=== PATIENT | female | born 1980 | race Caucasian/White ===

== ENCOUNTER 2016-10-15 10:08 | Emergency (ER) | payer MEDICAID ==
[2016-10-15 10:21] VITALS: BP 137/107
[2016-10-15] MEDS ORDERED: Sodium Chloride 0.9% 1,000 ML IV ONE (10:45)
[2016-10-15] MEDS ORDERED: Sodium Chloride 0.9% 10 ML Syringe FLUSH PRN (10:45)
[2016-10-15] MEDS ORDERED: HYDROmorphone 1 MG/ML Syringe IVPUSH ONE ×2 (10:45→12:15)
[2016-10-15] MEDS ORDERED: Ondansetron 8 MG in Sodium Chloride 0.9% 100 ML IV ONE (10:45)
--- NOTE | 2016-10-15 10:55 | EDM.PDOC ---
ED HPI GI/ABDOMINAL - General Chief Complaint: Abdominal Pain Stated Complaint: ABDOMINAL PAIN Time Seen by Provider: 10/15/16 10:33 Source of Information: Reports: Patient History Limitations: Reports: No limitations - History of Present Illness INITIAL COMMENTS - FREE TEXT/NARRATIVE: Patient comes in with pain 8/10 to the left lower quadrant of her abdomen. She states she has had nausea for the last few days, vomiting started yesterday, the pain over the last 24 hours. She states the pain is a sharp pain that sometimes radiates down to the pelvic area. She denies chest pain, SOB, decreased LOC. No fever but does endorse chills. She denies diarrhea. Patient states she has had her gall bladder and appendix removed. She has also had extensive history of kidney stones, with surgical removal of stones on the right side in July. History of multiple UTI's. 2 Para 2, denies history of ectopic . At home test 2 days ago was negative. She is 1 week late according to her usual menstrual cycle. Not actively using control. Also endorses history of ovarian cysts. Symptom Onset Date: 10/12/16 Timing/Duration: Reports: Getting worse, Gradual onset Location: suprapubic Quality: Reports: stabbing Severity: moderate Associated Symptoms (-Female): Reports: nausea/vomiting - Related Data Allergies/ADRs: Allergies Allergy/AdvReac Type Severity Reaction Status Date / Time codeine Allergy Itching Verified 10/15/16 10:24 morphine Allergy Itching Verified 10/15/16 10:24 Sulfa (Sulfonamide Allergy Rash Verified 10/15/16 10:24 Antibiotics) vancomycin Allergy Anaphylactic Verified 10/15/16 10:24 Shock Home Meds: Home Meds Multivitamin [One Daily] 1 each PO DAILY 12/25/14 [History] Aspirin [Halfprin] 81 mg PO BRK 04/10/16 [History] Doxycycline [Vibramycin] 100 mg PO Q12HR 04/10/16 [History] Ibuprofen [Advil] 200 - 600 mg PO Q6H PRN 04/10/16 [History] Midodrine 5 mg PO TID 04/10/16 [History] Nitrofurantoin Macrocrystal [Macrodantin] 100 mg PO BID 04/10/16 [History] SUMAtriptan Succinate [Imitrex] 100 mg PO ASDIRECTED PRN 04/10/16 [History] Sucralfate [Carafate] 1 gm PO QID PRN 04/10/16 [History] Lubiprostone [Amitiza] 24 mcg PO BID 10/15/16 [History] Nortriptyline HCl [Pamelor] 50 mg PO BEDTIME 10/15/16 [History] Ondansetron [Zofran ODT] 4 mg PO Q6H 10/15/16 [History] Propranolol [Inderal LA] 80 mg PO DAILY 10/15/16 [History] Past Medical History - Past Health History Medical/Surgical History: Denies Medical/Surgical History HEENT History: Reports: Head Other Cardiovascular History: sinus tachycardia Genitourinary History: Reports: Renal calculus 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 States her boyfriend witnessed them. She denies following up with Neurology after the seizure. Other Endocrine/Metabolic History: borderline abn.thyroid lab Dermatologic History: Reports: Other (see below) Other Dermatologic History: acne - Infectious Disease History Infectious Disease History: Reports: Chicken pox, MRSA Other Infectious Disease History: Recent history of MRSA on her face. - Past Surgical History HEENT Surgical History: Reports: Adenoidectomy, Tonsillectomy Female Surgical History: Reports: Kidney stone extraction Social & Family History - Family History Other Family History: mother has kidney problems Oncologic: Reports: Bladder Other Oncologic Family History: grandma - Tobacco Use Smoking Status *Q: Unknown Ever Smoked Years of Tobacco use: 5 Packs/Tins Daily: 0 - Alcohol Use Days Per Week of Alcohol Use: 0 - Recreational Drug Use Recreational Drug Use: No ED ROS GENERAL - Review of Systems Review Of Systems: See Below Constitutional: Reports: chills HEENT: Reports: No symptoms Respiratory: Reports: no symptoms Cardiovascular: Reports: No symptoms Endocrine: Reports: no symptoms GI/Abdominal: Reports: Abdominal pain, Nausea, Vomiting : Reports: no symptoms Musculoskeletal: Reports: no symptoms Skin: Reports: no symptoms Neurological: Reports: no symptoms Psychiatric: Reports: No symptoms Hematologic/Lymphatic: Reports: no symptoms Immunologic: Reports: no symptoms ED EXAM, GI/ABD - Physical Exam Exam: See Below Exam Limited By: No limitations General Appearance: alert, WD/WN, moderate distress Eyes: bilateral: EOMI Ears: normal TMs Nose: normal inspection Throat/Mouth: Normal inspection, Normal oropharynx Head: atraumatic, normocephalic Neck: normal inspection, supple, non-tender, full range of motion Respiratory/Chest: no respiratory distress, lungs clear, normal breath sounds, no accessory muscle use, chest non-tender Cardiovascular: normal peripheral pulses, no edema, no gallop, no murmur, tachycardia GI/Abdominal: normal bowel sounds, soft, no organomegaly, no distention, no abnormal bruit, no mass, tenderness, guarding Back Exam: normal inspection, full range of motion Extremities: normal inspection, normal range of motion, non-tender, no pedal edema, normal capillary refill Neurological: alert, oriented, CN II-XII intact, normal cognition, normal gait, normal reflexes, no motor/sensory deficits Psychiatric: normal affect, normal mood Skin Exam: Warm, Dry, Intact, Normal color, No rash Lymphatic: no adenopathy Course - Vital Signs Last Recorded V/S: Last Vital Signs Temp 35.8 C 10/15/16 10:20 Pulse 107 H 10/15/16 10:20 Resp 20 10/15/16 10:20 BP 137/107 H 10/15/16 10:20 Pulse Ox 98 10/15/16 10:20 - Orders/Labs/Meds Orders: Active Orders 24 hr Category Date Time Status Abdomen Pelvis w Cont [CT] Stat Exams 10/15/16 12:00 Ordered Sodium Chloride 0.9% [Saline Flush] Med 10/15/16 10:45 Active 10 ml FLUSH ASDIRECTED PRN Saline Lock Insert [OM.PC] Routine Oth 10/15/16 10:45 Ordered Medication Orders Sodium Chloride (Saline Flush) 10 ml FLUSH ASDIRECTED PRN PRN Reason: Keep Vein Open Labs: Laboratory Tests 10/15/16 10/15/16 10/15/16 Range/Units 10:57 10:57 11:16 WBC 6.5 (4.0-10.0) x10^3/uL RBC 4.43 (4.00-5.50) x10^6/uL Hgb 13.4 (12.0-16.0) g/dL Hct 39.2 (33.0-47.0) % MCV 88.5 (78.0-93.0) fL MCH 30.2 (26.0-32.0) pg MCHC 34.2 (32.0-36.0) g/dL RDW Coeff of Nydia 13.2 (10.0-15.0) % Plt Count 357 (130-400) x10^3/uL Neut % (Auto) 67.9 (50.0-80.0) % Lymph % (Auto) 25.9 (25.0-50.0) % [place] % (Auto) 5.1 (2.0-11.0) % Eos % (Auto) 0.9 (0.0-4.0) % Baso % (Auto) 0.2 (0.2-1.2) % Sodium 139 (136-145) mmol/L Potassium 3.9 (3.5-5.1) mmol/L Chloride 105 (98-107) mmol/L Carbon Dioxide 26 (21-32) mmol/L BUN 6 L (7-18) mg/dL Creatinine 0.8 (0.55-1.02) mg/dL Est Cr Clr Drug Dosing TNP Estimated GFR (MDRD) > 60 Glucose 111 H (74-106) mg/dL Calcium 8.8 (8.5-10.1) mg/dL Corrected Calcium 8.88 (8.5-10.1) mg/dL Total Bilirubin 0.3 (0.2-1.0) mg/dL AST 15 (15-37) U/L ALT 24 (14-59) U/L Alkaline Phosphatase 76 (46-116) U/L C-Reactive Protein < 0.2 (<=0.9) mg/dL Total Protein 7.5 (6.4-8.2) g/dL Albumin 3.9 (3.4-5.0) g/dL Globulin 3.6 Albumin/Globulin Ratio 1.08 Urine Color (YELLOW) Urine Appearance (CLEAR) Urine pH (5.0-8.0) Ur Specific [place] Urine Protein (NEGATIVE) mg/dL Urine Glucose (UA) (NEGATIVE) mg/dL Urine Ketones (NEGATIVE) mg/dL Urine Occult Blood (NEGATIVE) Urine Nitrite (NEGATIVE) Urine Bilirubin (NEGATIVE) Urine Urobilinogen (0.2) EU/dL Ur Leukocyte Esterase (NEGATIVE) Urine RBC (NOT SEEN) /HPF Urine WBC (NOT SEEN) /HPF Ur Squamous Epith Cells (NEGATIVE) /HPF Urine Bacteria (NEGATIVE) /HPF Urine Mucus (NEGATIVE) /LPF Urine HCG, Qual Negative (NEGATIVE) 10/15/16 Range/Units 11:16 WBC (4.0-10.0) x10^3/uL RBC (4.00-5.50) x10^6/uL Hgb (12.0-16.0) g/dL Hct (33.0-47.0) % MCV (78.0-93.0) fL MCH (26.0-32.0) pg MCHC (32.0-36.0) g/dL RDW Coeff of Nydia (10.0-15.0) % Plt Count (130-400) x10^3/uL Neut % (Auto) (50.0-80.0) % Lymph % (Auto) (25.0-50.0) % [place] % (Auto) (2.0-11.0) % Eos % (Auto) (0.0-4.0) % Baso % (Auto) (0.2-1.2) % Sodium (136-145) mmol/L Potassium (3.5-5.1) mmol/L Chloride (98-107) mmol/L Carbon Dioxide (21-32) mmol/L BUN (7-18) mg/dL Creatinine (0.55-1.02) mg/dL Est Cr Clr Drug Dosing Estimated GFR (MDRD) Glucose (74-106) mg/dL Calcium (8.5-10.1) mg/dL Corrected Calcium (8.5-10.1) mg/dL Total Bilirubin (0.2-1.0) mg/dL AST (15-37) U/L ALT (14-59) U/L Alkaline Phosphatase (46-116) U/L C-Reactive Protein (<=0.9) mg/dL Total Protein (6.4-8.2) g/dL Albumin (3.4-5.0) g/dL Globulin Albumin/Globulin Ratio Urine Color Yellow (YELLOW) Urine Appearance Clear (CLEAR) Urine pH 5.5 (5.0-8.0) Ur Specific [place] 1.010 Urine Protein Negative (NEGATIVE) mg/dL Urine Glucose (UA) Negative (NEGATIVE) mg/dL Urine Ketones Negative (NEGATIVE) mg/dL Urine Occult Blood Negative (NEGATIVE) Urine Nitrite Negative (NEGATIVE) Urine Bilirubin Negative (NEGATIVE) Urine Urobilinogen 0.2 (0.2) EU/dL Ur Leukocyte Esterase Negative (NEGATIVE) Urine RBC 0-5 (NOT SEEN) /HPF Urine WBC 0-5 (NOT SEEN) /HPF Ur Squamous Epith Cells Rare (NEGATIVE) /HPF Urine Bacteria Few H (NEGATIVE) /HPF Urine Mucus Few H (NEGATIVE) /LPF Urine HCG, Qual (NEGATIVE) Meds: Medications Generic Name Dose Route Start Last Admin Trade Name Freq PRN Reason Stop Dose Admin Sodium Chloride 10 ml 10/15/16 10:45 Saline Flush FLUSH ASDIRECTED PRN Keep Vein Open Discontinued Medications Generic Name Dose Route Start Last Admin Trade Name Freq PRN Reason Stop Dose Admin Hydromorphone HCl 1 mg 10/15/16 10:45 10/15/16 11:16 Dilaudid IVPUSH 10/15/16 10:46 1 mg ONETIME ONE Administration Hydromorphone HCl 1 mg 10/15/16 12:15 10/15/16 12:38 Dilaudid IVPUSH 10/15/16 12:16 1 mg ONETIME ONE Administration Ondansetron HCl 8 mg/ Sodium 104 mls @ 400 mls/hr 10/15/16 10:45 10/15/16 11: 14 Chloride IV 10/15/16 11:00 400 mls/hr ONETIME ONE Administration Sodium Chloride 1,000 mls @ 999 mls/hr 10/15/16 10:45 10/15/16 11:14 Normal Saline IV 10/15/16 11:45 999 mls/hr .BOLUS ONE Administration Sodium Chloride 100 mls @ 3 mls/sec 10/15/16 12:35 10/15/16 12:36 Normal Saline IV 10/15/16 12:36 3 mls/sec ONETIME ONE Administration Iopamidol 100 ml 10/15/16 12:35 10/15/16 12:36 Isovue-300 (61%) IVPUSH 10/15/16 12:36 100 ml ONETIME ONE Administration - Radiology Interpretation Free Text/Narrative:: Abdominal CT negative Labs are also negative for acute processes. Departure - Departure Time of Disposition: 13:37 Disposition: Home, Self-Care 01 Condition: good Clinical Impression: Abdominal pain, Vomiting Instructions: Nausea and Vomiting, Adult, [id number], Pain Medicine Instructions, [id number] Forms: ED Department Discharge Additional Instructions: Your labs and CT were negative today. The radiologist did see a small left sided ovarian cyst that he did not think was large enough to be causing this much discomfort. Bowels were normal, no diverticulitis, no stones seen test was negative I would recommend a follow up appointment with your CREDIT UNION TELLER to have an ultrasound done to rule out other gynecologic causes. I believe [facility] has the ultrasound on SaturdayOctober 16 Make sure to stay hydrated as best you can with water or gatorade/powerade. Please call with any questions or concerns in the meantime - Problem List & Annotations (1) Abdominal pain SNOMED Code(s): 64996963 Code(s): R10.9 - UNSPECIFIED ABDOMINAL PAIN Status: Acute Priority: Low Current Visit: Yes Qualifiers: Abdominal location: left lower quadrant Qualified Code(s): R10.32 - Left lower quadrant pain (2) Vomiting SNOMED Code(s): 790633998 Code(s): R11.10 - VOMITING, UNSPECIFIED Status: Acute Current Visit: Yes Qualifiers: Vomiting type: unspecified Vomiting Intractability: non-intractable Nausea presence: with nausea Qualified Code(s): R11.2 - Nausea with vomiting, unspecified - Problem List Review Problem List Initiated/Reviewed/Updated: Yes - My Orders Last 24 Hours: My Active Orders 10/15/16 10:45 Sodium Chloride 0.9% [Saline Flush] 10 ml FLUSH ASDIRECTED PRN Saline Lock Insert [OM.PC] Routine 10/15/16 12:00 Abdomen Pelvis w Cont [CT] Stat - Assessment/Plan Last 24 Hours: My Active Orders 10/15/16 10:45 Sodium Chloride 0.9% [Saline Flush] 10 ml FLUSH ASDIRECTED PRN Saline Lock Insert [OM.PC] Routine 10/15/16 12:00 Abdomen Pelvis w Cont [CT] Stat Assessment:: left sided abdominal pain nausea/vomiting Plan: our labs and CT were negative today. The radiologist did see a small left sided ovarian cyst that he did not think was large enough to be causing this much discomfort. Bowels were normal, no diverticulitis, no stones seen test was negative I would recommend a follow up appointment with your CREDIT UNION TELLER to have an ultrasound done to rule out other gynecologic causes. I believe [facility] has the ultrasound on SaturdayOctober 16 Make sure to stay hydrated as best you can with water or gatorade/powerade. Please call with any questions or concerns in the meantime
[2016-10-15 11:22] LABS: CHLORIDE,CL 105 mmol/L (98-107); SODIUM,NA 139 mmol/L (136-145)
[2016-10-15] MEDS ORDERED: Sodium Chloride 0.9% 100 ML IV ONE (12:35)
[2016-10-15] MEDS ORDERED: Iopamidol 612 MG/ML 100 ML Bottle IVPUSH ONE (12:35)
== END 2016-10-15 13:53 | disposition home or self-care (01) ==
LOC: VM.ED 10:08
DX: R10.32 Left lower quadrant pain (principal); R11.2 Nausea with vomiting, unspecified; G43.909 Migraine, unspecified, not intractable, without status migrainosus; Z88.5 Allergy status to narcotic agent; Z88.2 Allergy status to sulfonamides; Z88.6 Allergy status to analgesic agent; Z88.8 Allergy status to other drugs, medicaments and biological substances; Z79.899 Other long term (current) drug therapy
CPT/HCPCS: 36415; 74177; 80053; 81001; 81025; 85025; 86140; 96361; 96374; 96375; 96376; 99284; J1170; J2405; J7030; J7050; Q9967

== ENCOUNTER 2016-11-08 20:51 | Emergency (ER) | payer MEDICAID ==
[2016-11-08] MEDS ORDERED: Ketorolac 60 MG/2 ML SDV IM ONE (21:22)
[2016-11-08] MEDS ORDERED: Promethazine 25 MG/ML SDV IM ONE (21:22)
--- NOTE | 2016-11-08 21:28 | EDM.PDOC ---
ED HPI HEADACHE COMPLAINT - General Chief Complaint: Headache Stated Complaint: Migraine Time Seen by Provider: 11/08/16 21:13 Source of Information: Reports: Patient History Limitations: Reports: No limitations - History of Present Illness INITIAL COMMENTS - FREE TEXT/NARRATIVE: 36-year-old white female with complaints of headache times one day that came on suddenly yesterday morning patient states she took 2 doses of Imitrex yesterday and has had no relief classifies it as a 7/10 sharp stabbing to the right side of her fourhead she denies this as her worst headache of her life states she has an occasionally one to 2 times a month and has had worse headaches than this patient has had CTs MRIs all negative last head CT was roughly one year ago Patient states this does not typically fed her migraine pattern because mostly it is from front to back this is located mostly over the forehead area patient states has had nausea all day vomiting x1 a couple of hours has been having some by mouth fluids and food has been evaluated by neurology in the past with normal findings patient denies any loss of vision numbness or tingling dental pain sore throat or neck pain Location: Reports: frontal, temporal, right Severity: Reports: moderate. Denies: worst headache ever Context: Denies: dietary trigger, recent drugs/ETOH, change in medications Associated Symptoms: Reports: denies other symptoms. Denies: hyperacusis, photophobia, confusion, dizziness, vision changes - Related Data Allergies/ADRs: Allergies Allergy/AdvReac Type Severity Reaction Status Date / Time codeine Allergy Itching Verified 11/08/16 21:14 morphine Allergy Itching Verified 11/08/16 21:14 Sulfa (Sulfonamide Allergy Rash Verified 11/08/16 21:14 Antibiotics) vancomycin Allergy Anaphylactic Verified 11/08/16 21:14 Shock Home Meds: Home Meds Multivitamin [One Daily] 1 each PO DAILY 12/25/14 [History] Aspirin [Halfprin] 325 mg PO BRK 04/10/16 [History] Doxycycline [Vibramycin] 100 mg PO Q12HR 04/10/16 [History] Ibuprofen [Advil] 200 - 600 mg PO Q6H PRN 04/10/16 [History] Midodrine 7.5 mg PO TID 04/10/16 [History] SUMAtriptan Succinate [Imitrex] 100 mg PO ASDIRECTED PRN 04/10/16 [History] Lubiprostone [Amitiza] 24 mcg PO BID 10/15/16 [History] Nortriptyline HCl [Pamelor] 50 mg PO BEDTIME 10/15/16 [History] Ondansetron [Zofran ODT] 4 mg PO Q6H 10/15/16 [History] Propranolol [Inderal LA] 80 mg PO DAILY 10/15/16 [History] Past Medical History - Past Health History Medical/Surgical History: Denies Medical/Surgical History HEENT History: Reports: Head Other Cardiovascular History: sinus tachycardia Genitourinary History: Reports: Renal calculus 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 States her boyfriend witnessed them. She denies following up with Neurology after the seizure. Other Endocrine/Metabolic History: borderline abn.thyroid lab Dermatologic History: Reports: Other (see below) Other Dermatologic History: acne - Infectious Disease History Infectious Disease History: Reports: Chicken pox, MRSA Other Infectious Disease History: Recent history of MRSA on her face. - Past Surgical History HEENT Surgical History: Reports: Adenoidectomy, Tonsillectomy Female Surgical History: Reports: Kidney stone extraction Social & Family History - Family History Other Family History: mother has kidney problems Oncologic: Reports: Bladder Other Oncologic Family History: grandma - Tobacco Use Smoking Status *Q: Unknown Ever Smoked Years of Tobacco use: 5 Packs/Tins Daily: 0 - Alcohol Use Days Per Week of Alcohol Use: 0 - Recreational Drug Use Recreational Drug Use: No ED ROS GENERAL - Review of Systems Review Of Systems: See Below Constitutional: Reports: no symptoms. Denies: fever, chills, malaise HEENT: Reports: No symptoms Respiratory: Reports: No Symptoms Cardiovascular: Reports: No symptoms Endocrine: Reports: no symptoms GI/Abdominal: Reports: No symptoms Musculoskeletal: Reports: no symptoms Skin: Reports: no symptoms Neurological: Reports: Headache. Denies: Confusion, Dizziness, Numbness, Paresthesia, Syncope, Tingling, Trouble Speaking, Gait Disturbance Psychiatric: Reports: No symptoms Hematologic/Lymphatic: Reports: no symptoms Immunologic: Reports: no symptoms - Physical Exam Exam: See Below Exam Limited By: No limitations General Appearance: alert, WD/WN, no apparent distress Eye Exam: bilateral eye: EOMI, PERRL Ears: normal external exam, normal canal, hearing grossly normal, normal TMs Nose: normal inspection, normal mucosa, no blood Throat/Mouth: Normal inspection, Normal lips, Normal teeth, Normal gums, Normal oropharynx, Normal voice, No airway compromise, Other (Negative tenderness palpation of her dental area no signs of any abscess) Head Exam: atraumatic, normocephalic. No: scalp tenderness, facial abrasions, facial swelling, sinus tenderness Neck: normal inspection, supple, non-tender, full range of motion Respiratory/Chest: no respiratory distress, lungs clear, normal breath sounds, no accessory muscle use, chest non-tender Cardiovascular: normal peripheral pulses, regular rate, rhythm, no edema, no gallop, no JVD GI/Abdominal: normal bowel sounds, non tender, no organomegaly Neuro Exam (Abbreviated): alert, oriented, CN II-XII intact, normal cognition, normal gait, normal reflexes (Patient is alert oriented normal speech follows all normal Romberg finger to nose PATRICIA), no motor/sensory deficits Extremities: normal inspection, normal range of motion, non-tender Psychiatric: normal affect, normal mood Skin Exam: Warm, Dry, Intact, Normal color, No rash Course - Vital Signs Text/Narrative:: Toradol 60 mg IM Phenergan 12.5 mg IM and reassess patient afterwards patient was noted to have mild hypertension 142/100 rechecked pt bp normal SHOEMAKER has improved feels better neg nausea patient states she is going to [place] tomorrow to try to followup with her neurologist Last Recorded V/S: Last Vital Signs Temp 37.2 C 11/08/16 21:21 Pulse 88 11/08/16 21:45 Resp 18 11/08/16 21:21 BP 123/87 11/08/16 21:45 Pulse Ox 98 11/08/16 21:45 - Orders/Labs/Meds Meds: Medications Discontinued Medications Generic Name Dose Route Start Last Admin Trade Name Freq PRN Reason Stop Dose Admin Ketorolac Tromethamine 60 mg 11/08/16 21:22 11/08/16 21:40 Toradol IM 11/08/16 21:23 60 mg ONETIME ONE Administration Promethazine HCl 12.5 mg 11/08/16 21:22 11/08/16 21:41 Phenergan IM 11/08/16 21:23 12.5 mg ONETIME ONE Administration Departure - Departure Time of Disposition: 21:40 Disposition: Home, Self-Care 01 Condition: good Clinical Impression: Subarachnoid hemorrhage Migraine Qualifiers: Migraine type: unspecified Status migrainosus presence: without status migrainosus Intractability: not intractable Qualified Code(s): G43.909 - Migraine, unspecified, not intractable, without status migrainosus Clinical Impression: (Ruled Out): Meningitis, Encephalitis Referrals: Maik Gonzales NP [Primary Care Provider] - Forms: ED Department Discharge Additional Instructions: follow up with your primary provider in the next 24-48 hrs return to ER if anything changes or gets worse loss vision changes in vision persistent vomiting or worsening headache
[2016-11-09 02:22] VITALS: BP 123/87
== END 2016-11-08 22:08 | disposition home or self-care (01) ==
LOC: VM.ED 20:51
DX: I60.9 Nontraumatic subarachnoid hemorrhage, unspecified (principal); G43.909 Migraine, unspecified, not intractable, without status migrainosus; Z88.6 Allergy status to analgesic agent; Z88.5 Allergy status to narcotic agent; Z88.2 Allergy status to sulfonamides; Z79.899 Other long term (current) drug therapy
CPT/HCPCS: 96372; 99283; J1885; J2550

== ENCOUNTER 2016-12-23 04:34 | Emergency (ER) | payer MEDICAID ==
--- NOTE | 2016-12-23 04:58 | EDM.PDOC ---
ED HPI GENERAL MEDICAL PROBLEM - General Chief Complaint: General Stated Complaint: ?SEIZURES Time Seen by Provider: 12/23/16 04:46 Source of Information: Reports: Patient, Family, RN, RN notes reviewed History Limitations: Reports: No limitations - History of Present Illness INITIAL COMMENTS - FREE TEXT/NARRATIVE: Patient is brought to the ED at [facility] for a possible seizure. Patient' s boyfriend states around 3am, patient was just lying in bed and started shaking and had trouble speaking. No falls or head trauma/injury. No previous history of seizures. Patient does smell of ETOH. Patient does not take any seizure medications. No current diagnosis of seizures. Patient's boyfriend states the patient has trouble speaking. Onset: sudden Onset Date: 12/23/16 Onset Time: 03:00 Duration: Recurring - Related Data Allergies Allergy/AdvReac Type Severity Reaction Status Date / Time acetaminophen [From Percocet] Allergy Itching Verified 12/23/16 05:08 adhesive Allergy Rash Verified 12/23/16 05:08 clindamycin Allergy Itching Verified 12/23/16 05:08 codeine Allergy Itching Verified 12/23/16 04:40 levofloxacin [From Levaquin] Allergy Rash Verified 12/23/16 05:08 morphine Allergy Itching Verified 12/23/16 04:40 oxycodone [From Percocet] Allergy Itching Verified 12/23/16 05:08 Sulfa (Sulfonamide Allergy Rash Verified 12/23/16 04:40 Antibiotics) sulfamethoxazole Allergy Rash Verified 12/23/16 05:09 [From Septra] trimethoprim [From Septra] Allergy Rash Verified 12/23/16 05:09 vancomycin Allergy Redness Verified 12/23/16 05:08 Home Meds: Home Meds Multivitamin [One Daily] 1 each PO DAILY 12/25/14 [History] Aspirin [Halfprin] 325 mg PO BRK 04/10/16 [History] Ibuprofen [Advil] 200 - 600 mg PO ASDIRECTED PRN 04/10/16 [History] Midodrine 7.5 mg PO TID 04/10/16 [History] SUMAtriptan Succinate [Imitrex] 100 mg PO ASDIRECTED PRN 04/10/16 [History] Lubiprostone [Amitiza] 24 mcg PO BID 10/15/16 [History] Nortriptyline HCl [Pamelor] 50 mg PO ASDIRECTED 10/15/16 [History] Ondansetron [Zofran ODT] 4 mg PO Q6H PRN 10/15/16 [History] Propranolol [Inderal LA] 80 mg PO ASDIRECTED 10/15/16 [History] Naproxen [Naprosyn] 1 tab PO BID 12/23/16 [History] Past Medical History - Past Health History Medical/Surgical History: Denies Medical/Surgical History HEENT History: Reports: Head Other Cardiovascular History: sinus tachycardia Genitourinary History: Reports: Renal calculus 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 States her boyfriend witnessed them. She denies following up with Neurology after the seizure. Other Endocrine/Metabolic History: borderline abn.thyroid lab Dermatologic History: Reports: Other (see below) Other Dermatologic History: acne - Infectious Disease History Infectious Disease History: Reports: Chicken pox, MRSA Other Infectious Disease History: Recent history of MRSA on her face. - Past Surgical History HEENT Surgical History: Reports: Adenoidectomy, Tonsillectomy Female Surgical History: Reports: Kidney stone extraction Social & Family History - Family History Other Family History: mother has kidney problems Oncologic: Reports: Bladder Other Oncologic Family History: grandma - Tobacco Use Smoking Status *Q: Unknown Ever Smoked Years of Tobacco use: 5 Packs/Tins Daily: 0 - Caffeine Use Caffeine Use: Reports: Coffee, Soda - Alcohol Use Days Per Week of Alcohol Use: 0 - Recreational Drug Use Recreational Drug Use: No ED ROS GENERAL - Review of Systems Review Of Systems: See Below Constitutional: Denies: fever, chills, weakness HEENT: Reports: No symptoms Respiratory: Denies: Shortness of Breath, Cough Cardiovascular: Denies: Chest pain, Palpitations GI/Abdominal: Denies: Abdominal pain, Nausea, Vomiting Skin: Reports: no symptoms Neurological: Reports: Seizure, Tremors. Denies: Dizziness, Headache, Numbness , Paresthesia, Tingling ED EXAM, GENERAL - Physical Exam Exam: See Below Exam Limited By: No limitations General Appearance: alert, no apparent distress Eye Exam: bilateral eye: EOMI, normal inspection, PERRL Ears: normal external exam, normal canal, hearing grossly normal, normal TMs Ear Exam: bilateral ear: TM normal Nose: normal inspection, normal mucosa, no blood Throat/Mouth: Normal inspection, Normal oropharynx, No airway compromise Head: atraumatic, normocephalic Neck: supple Respiratory/Chest: no respiratory distress, lungs clear, normal breath sounds Cardiovascular: regular rate, rhythm GI/Abdominal: normal bowel sounds, soft, non tender Extremities: normal inspection Neurological: alert, slow to respond Skin Exam: Warm, Dry, Intact, Normal color, No rash Course - Vital Signs Last Recorded V/S: Last Vital Signs Temp 37.4 C 12/23/16 04:38 Pulse 122 H 12/23/16 04:38 Resp 20 12/23/16 04:38 BP 140/76 12/23/16 04:38 Pulse Ox 100 12/23/16 04:38 - Orders/Labs/Meds Orders: Active Orders 24 hr Category Date Time Status Head wo Cont [CT] Stat Exams 12/23/16 04:46 Taken Labs: Laboratory Tests 12/23/16 12/23/16 12/23/16 Range/Units 04:59 04:59 05:07 WBC 6.4 (4.0-10.0) x10^3/uL RBC 4.18 (4.00-5.50) x10^6/uL Hgb 12.5 (12.0-16.0) g/dL Hct 36.3 (33.0-47.0) % MCV 86.8 (78.0-93.0) fL MCH 29.9 (26.0-32.0) pg MCHC 34.4 (32.0-36.0) g/dL RDW Coeff of Nydia 13.2 (10.0-15.0) % Plt Count 312 (130-400) x10^3/uL Neut % (Auto) 48.7 L (50.0-80.0) % Lymph % (Auto) 39.5 (25.0-50.0) % [place] % (Auto) 8.3 (2.0-11.0) % Eos % (Auto) 3.0 (0.0-4.0) % Baso % (Auto) 0.5 (0.2-1.2) % Sodium (136-145) mmol/L Potassium (3.5-5.1) mmol/L Chloride (98-107) mmol/L Carbon Dioxide (21-32) mmol/L BUN (7-18) mg/dL Creatinine (0.55-1.02) mg/dL Est Cr Clr Drug Dosing Estimated GFR (MDRD) Glucose (74-106) mg/dL Calcium (8.5-10.1) mg/dL Urine Color Yellow (YELLOW) Urine Appearance Clear (CLEAR) Urine pH 6.0 (5.0-8.0) Ur Specific [place] 1.010 Urine Protein Negative (NEGATIVE) mg/dL Urine Glucose (UA) Negative (NEGATIVE) mg/dL Urine Ketones Negative (NEGATIVE) mg/dL Urine Occult Blood Trace-intact H (NEGATIVE) Urine Nitrite Negative (NEGATIVE) Urine Bilirubin Negative (NEGATIVE) Urine Urobilinogen 0.2 (0.2) EU/dL Ur Leukocyte Esterase Negative (NEGATIVE) Urine RBC 0-5 (NOT SEEN) /HPF Urine WBC 0-5 (NOT SEEN) /HPF Ur Squamous Epith Cells Few H (NEGATIVE) /HPF Urine Bacteria Not seen (NEGATIVE) /HPF Urine Mucus Not seen (NEGATIVE) /LPF Urine Opiates Screen Negative (NEGATIVE) Ur Buprenorphine Scrn Negative (NEGATIVE) Ur Oxycodone Screen Negative (NEGATIVE) Urine Methadone Screen Negative (NEGATIVE) Ur Barbiturates Screen Negative (NEGATIVE) Ur Tricyclics Screen Negative (NEGATIVE) Ur Amphetamine Screen Negative (NEGATIVE) U Methamphetamines Scrn Negative (NEGATIVE) Urine MDMA Screen Negative (NEGATIVE) U Benzodiazepines Scrn Negative (NEGATIVE) U Cocaine Metab Screen Negative (NEGATIVE) U Marijuana (THC) Screen Negative (NEGATIVE) Ethyl Alcohol (0-3) mg/dL 12/23/16 Range/Units 05:07 WBC (4.0-10.0) x10^3/uL RBC (4.00-5.50) x10^6/uL Hgb (12.0-16.0) g/dL Hct (33.0-47.0) % MCV (78.0-93.0) fL MCH (26.0-32.0) pg MCHC (32.0-36.0) g/dL RDW Coeff of Nydia (10.0-15.0) % Plt Count (130-400) x10^3/uL Neut % (Auto) (50.0-80.0) % Lymph % (Auto) (25.0-50.0) % [place] % (Auto) (2.0-11.0) % Eos % (Auto) (0.0-4.0) % Baso % (Auto) (0.2-1.2) % Sodium 143 (136-145) mmol/L Potassium 3.7 (3.5-5.1) mmol/L Chloride 109 H (98-107) mmol/L Carbon Dioxide 24 (21-32) mmol/L BUN 5 L (7-18) mg/dL Creatinine 0.7 (0.55-1.02) mg/dL Est Cr Clr Drug Dosing TNP Estimated GFR (MDRD) > 60 Glucose 97 (74-106) mg/dL Calcium 8.3 L (8.5-10.1) mg/dL Urine Color (YELLOW) Urine Appearance (CLEAR) Urine pH (5.0-8.0) Ur Specific [place] Urine Protein (NEGATIVE) mg/dL Urine Glucose (UA) (NEGATIVE) mg/dL Urine Ketones (NEGATIVE) mg/dL Urine Occult Blood (NEGATIVE) Urine Nitrite (NEGATIVE) Urine Bilirubin (NEGATIVE) Urine Urobilinogen (0.2) EU/dL Ur Leukocyte Esterase (NEGATIVE) Urine RBC (NOT SEEN) /HPF Urine WBC (NOT SEEN) /HPF Ur Squamous Epith Cells (NEGATIVE) /HPF Urine Bacteria (NEGATIVE) /HPF Urine Mucus (NEGATIVE) /LPF Urine Opiates Screen (NEGATIVE) Ur Buprenorphine Scrn (NEGATIVE) Ur Oxycodone Screen (NEGATIVE) Urine Methadone Screen (NEGATIVE) Ur Barbiturates Screen (NEGATIVE) Ur Tricyclics Screen (NEGATIVE) Ur Amphetamine Screen (NEGATIVE) U Methamphetamines Scrn (NEGATIVE) Urine MDMA Screen (NEGATIVE) U Benzodiazepines Scrn (NEGATIVE) U Cocaine Metab Screen (NEGATIVE) U Marijuana (THC) Screen (NEGATIVE) Ethyl Alcohol 118 H (0-3) mg/dL - Radiology Interpretation Free Text/Narrative:: Normal Head CT CT Results Date: 12/23/16 CT Results Time: 05:47 Departure - Departure Time of Disposition: 06:09 Disposition: Home, Self-Care 01 Condition: good Clinical Impression: Dehydration, No history of seizure disorder Instructions: Rehydration, Adult Referrals: Maik Gonzales NP [Primary Care Provider] - Forms: ED Department Discharge Additional Instructions: 1. Stay well hydrated and rest 2. Continue all medications without any changes 3. Return to ED as symptoms warrant 4. All testing today was normal - Problem List Review Problem List Initiated/Reviewed/Updated: Yes - My Orders Last 24 Hours: My Active Orders 12/23/16 04:46 Head wo Cont [CT] Stat - Assessment/Plan Last 24 Hours: My Active Orders 12/23/16 04:46 Head wo Cont [CT] Stat
[2016-12-23 05:29] LABS: CHLORIDE,CL 109 mmol/L (98-107); SODIUM,NA 143 mmol/L (136-145)
[2016-12-23 06:11] VITALS: BP 115/43
== END 2016-12-23 06:21 | disposition home or self-care (01) ==
LOC: VM.ED 04:34
DX: E86.0 Dehydration (principal); G43.909 Migraine, unspecified, not intractable, without status migrainosus; Z90.49 Acquired absence of other specified parts of digestive tract; Z88.8 Allergy status to other drugs, medicaments and biological substances; Z88.2 Allergy status to sulfonamides; Z88.5 Allergy status to narcotic agent
CPT/HCPCS: 36415; 70450; 80048; 80305; 81001; 85025; 99284; G0480

== ENCOUNTER 2017-03-28 22:35 | Emergency (ER) | payer MEDICAID ==
[2017-03-28 22:49] VITALS: BP 134/83
--- NOTE | 2017-03-28 23:07 | EDM.PDOC ---
ED HPI GENERAL MEDICAL PROBLEM - General Chief Complaint: Upper Extremity Injury/Pain Stated Complaint: Right Wrist Injury; Migraine Time Seen by Provider: 03/28/17 22:38 Source of Information: Reports: Patient, Family, RN, RN Notes Reviewed History Limitations: Reports: No Limitations - History of Present Illness INITIAL COMMENTS - FREE TEXT/NARRATIVE: Patient presents to the ED at [facility] with a couple of different complaints. Patient states she has had typical migraine headache for most of the day. Patient states she did take 2 Imitrex, which did not help, so patient decided to take a hot bath. Patient states she was exiting the bath tub, "I must have fallen or past out, because I can not move my right wrist." Patient states the last thing she remembers is draining the water from the tub and then waking up on the floor. She denies any blunt head injury, but does have some pain behind her left ear. She complains of severe right wrist pain and not being able to move her right wrist. No previous right wrist injury or trauma. No previous right wrist surgeries. Patient states most of the pain is on the dorsal side of the wrist. She states she is not able to bend her wrist or house mover helper her fingers. Patient does, however, deny any LOC. No other complaints. Onset: Today Onset Date: 03/28/17 Onset Time: 21:30 Location: Reports: Upper Extremity, Right Quality: Reports: Sharp, Throbbing Severity: Severe Improves with: Reports: Rest Worsens with: Reports: Movement Context: Reports: Trauma Associated Symptoms: Reports: Headaches Treatments SILVER STEWARD: Reports: Other (see below) (None) - Related Data Allergies Allergy/AdvReac Type Severity Reaction Status Date / Time acetaminophen [From Percocet] Allergy Itching Verified 03/28/17 22:51 adhesive Allergy Rash Verified 03/28/17 22:51 clindamycin Allergy Itching Verified 03/28/17 22:51 codeine Allergy Itching Verified 03/28/17 22:51 levofloxacin [From Levaquin] Allergy Rash Verified 03/28/17 22:51 morphine Allergy Itching Verified 03/28/17 22:51 oxycodone [From Percocet] Allergy Itching Verified 03/28/17 22:51 Sulfa (Sulfonamide Allergy Rash Verified 03/28/17 22:51 Antibiotics) sulfamethoxazole Allergy Rash Verified 03/28/17 22:51 [From ] trimethoprim [From ] Allergy Rash Verified 03/28/17 22:51 vancomycin Allergy Redness Verified 03/28/17 22:51 Home Meds: Home Meds Multivitamin [One Daily] 1 each PO DAILY 12/25/14 [History] Aspirin [Halfprin] 325 mg PO BRK 04/10/16 [History] Ibuprofen [Advil] 200 - 600 mg PO ASDIRECTED PRN 04/10/16 [History] Midodrine 7.5 mg PO TID 04/10/16 [History] SUMAtriptan Succinate [Imitrex] 100 mg PO ASDIRECTED PRN 04/10/16 [History] Lubiprostone [Amitiza] 24 mcg PO BID 10/15/16 [History] Nortriptyline HCl [Pamelor] 50 mg PO ASDIRECTED 10/15/16 [History] Ondansetron [Zofran ODT] 4 mg PO Q6H PRN 10/15/16 [History] Propranolol [Inderal LA] 80 mg PO ASDIRECTED 10/15/16 [History] Naproxen [Naprosyn] 1 tab PO BID 12/23/16 [History] Past Medical History - Past Health History Medical/Surgical History: Denies Medical/Surgical History HEENT History: Reports: Head Cardiovascular History: Reports: Other (See Below) Other Cardiovascular History: sinus tachycardia, POTS Gastrointestinal History: Reports: GERD, Inflammatory Bowel Disease Genitourinary History: Reports: Renal Calculus Other Genitourinary History: gross hematuria 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 States her boyfriend witnessed them. She denies following up with Neurology after the seizure. Other Endocrine/Metabolic History: borderline abn.thyroid lab Dermatologic History: Reports: Other (See Below) Other Dermatologic History: acne - Infectious Disease History Infectious Disease History: Reports: Chicken Pox, MRSA Other Infectious Disease History: Recent history of MRSA on her face. - Past Surgical History HEENT Surgical History: Reports: Adenoidectomy, Tonsillectomy Social & Family History - Family History Other Family History: mother has kidney problems Oncologic: Reports: Bladder Other Oncologic Family History: grandma - Tobacco Use Smoking Status *Q: Unknown Ever Smoked Years of Tobacco use: 5 Packs/Tins Daily: 0 - Caffeine Use Caffeine Use: Reports: Coffee, Soda - Alcohol Use Days Per Week of Alcohol Use: 0 - Recreational Drug Use Recreational Drug Use: No Review of Systems - Review of Systems Review Of Systems: See Below Constitutional: Denies: Chills, Fever, Weakness Respiratory: Denies: Shortness of Breath, Cough Cardiovascular: Denies: Chest Pain, Palpitations Musculoskeletal: Reports: Hand Pain, Joint Pain (Right wrist), Muscle Stiffness. Denies: Arm Pain Skin: Reports: No Symptoms Neurological: Reports: Headache. Denies: Numbness, Paresthesia, Tingling ED EXAM, GENERAL - Physical Exam Exam: See Below Exam Limited By: No Limitations General Appearance: Alert, No Apparent Distress Eye Exam: Bilateral Eye: EOMI, Normal Inspection, PERRL Head: Atraumatic, Normocephalic Neck: Supple, Full Range of Motion Respiratory/Chest: No Respiratory Distress, Lungs Clear, Normal Breath Sounds Cardiovascular: Regular Rate, Rhythm Extremities: Limited Range of Motion (Right wrist due to pain). No: Joint Swelling, Arm Pain Neurological: Alert, Oriented Skin Exam: Warm, Dry, Intact, Normal Color, No Rash Course - Vital Signs Last Recorded V/S: Last Vital Signs Temp 36.2 C 03/28/17 22:38 Pulse 88 03/28/17 22:38 Resp 14 03/28/17 22:38 BP 134/83 03/28/17 22:38 Pulse Ox 98 03/28/17 22:38 - Orders/Labs/Meds Orders: Active Orders 24 hr Category Date Time Status Wrist Comp Min 3V Rt [CR] Stat Exams 03/28/17 23:10 Taken Meds: Medications Discontinued Medications Generic Name Dose Route Start Last Admin Trade Name Freq PRN Reason Stop Dose Admin Chlorpromazine HCl 50 mg 03/28/17 23:10 03/28/17 23:22 Thorazine IM 03/28/17 23:11 50 mg ONETIME ONE Administration - Radiology Interpretation Free Text/Narrative:: Right Wrist: No acute findings - see scanned document in EMR Departure - Departure Time of Disposition: 23:52 Disposition: Home, Self-Care 01 Condition: Good Clinical Impression: Migraine Qualifiers: Migraine type: unspecified Status migrainosus presence: without status migrainosus Intractability: not intractable Qualified Code(s): G43.909 - Migraine, unspecified, not intractable, without status migrainosus Right wrist injury Qualifiers: Encounter type: initial encounter Qualified Code(s): S69.91XA - Unspecified injury of right wrist, hand and finger(s), initial encounter Wrist sprain Qualifiers: Encounter type: initial encounter Laterality: right Qualified Code(s): S63.501A - Unspecified sprain of right wrist, initial encounter - Discharge Information Instructions: Wrist Sprain, Migraine Headache Referrals: Elle Rajput MD [Primary Care Provider] - Forms: ED Department Discharge Additional Instructions: 1. Stay well hydrated and rest 2. Continue with Imitrex 3. Wear wrist splint for the next week 4. Alternate heat/ice to right wrist 5. Rest and elevate right wrist several time a day 6. See your Primary as symptoms warrant - Problem List Review Problem List Initiated/Reviewed/Updated: Yes - My Orders Last 24 Hours: My Active Orders 03/28/17 23:10 Wrist Comp Min 3V Rt [CR] Stat - Assessment/Plan Last 24 Hours: My Active Orders 03/28/17 23:10 Wrist Comp Min 3V Rt [CR] Stat
== END 2017-03-29 00:02 | disposition home or self-care (01) ==
LOC: VM.ED 22:35
DX: S63.501A Unspecified sprain of right wrist, initial encounter (principal); G43.909 Migraine, unspecified, not intractable, without status migrainosus; K21.9 Gastro-esophageal reflux disease without esophagitis; Z88.1 Allergy status to other antibiotic agents; Z88.5 Allergy status to narcotic agent; Z88.2 Allergy status to sulfonamides; Z88.8 Allergy status to other drugs, medicaments and biological substances; Z79.82 Long term (current) use of aspirin; Z87.442 Personal history of urinary calculi; Z86.14 Personal history of Methicillin resistant Staphylococcus aureus infection; Z90.89 Acquired absence of other organs; X58.XXXA Exposure to other specified factors, initial encounter
CPT/HCPCS: 73110; 96372; 99283; J3230

== ENCOUNTER 2017-04-29 15:50 | Emergency (ER) | payer MEDICAID ==
[2017-04-29 16:41] VITALS: BP 137/82
[2017-04-29] MEDS ORDERED: Sodium Chloride 0.9% 10 ML Syringe FLUSH PRN (16:43)
[2017-04-29] MEDS ORDERED: Sodium Chloride 0.9% 1,000 ML IV ONE (16:45)
[2017-04-29] MEDS ORDERED: Ketorolac 30 MG/ML SDV IVPUSH ONE ×2 (16:46→17:01)
[2017-04-29] MEDS ORDERED: Prochlorperazine 10 MG/2 ML SDV IV ONE (16:47)
[2017-04-29 17:43] LABS: CHLORIDE,CL 104 mmol/L (98-107); SODIUM,NA 135 mmol/L (136-145)
[2017-04-29] MEDS ORDERED: methylPREDNISolone Sodium Succinate 125 MG/2 ML SDV IV ONE (18:18)
[2017-04-29] MEDS ORDERED: Take Home: Acetaminophen/Codeine 300 MG/30 MG, 5 Tab Pack PO ONE (18:28)
[2017-04-29] MEDS ORDERED: Take Home: Naproxen 500 MG Tab, 4 Tab Pack PO ONE (18:28)
--- NOTE | 2017-04-30 08:18 | ER ---
Date of Service: 04/29/2017 SUBJECTIVE: Snehal presents to the emergency room with a constellation of symptoms. The patient states that she is experiencing left posterior chest wall pain as well as symptoms of migraine headache and scalp pain. The patient states that she has been experiencing these migraine symptoms since this morning. She states that it was similar to migraine that she had experienced in the past, but states that she was also experiencing some "black spots" in her vision. She states that she does have photophobia and denies any head trauma. She denies any numbness or tingling in her extremities or new difficulties with speech or ambulation. The patient had an episode of stroke-like symptoms in 08/2015 and did have some expressive aphasia and dysarthria associated with this. The patient was transferred to in [place] and then subsequently was seen at [facility] in [place] and was found to be experiencing likely an episode of migraine with aura or global amnesia. She states that she has not had any issues with any neurologic symptoms since that time, but states she does get a migraine approximately once a month. Again, she denies any fever or chills. No neck pain. She states that she was experiencing the pain in her head and feels as though it radiated down her neck and into her mid to upper portion of the left side of her back. She states the discomfort in her back is worse with movement and deep breathing. Initially, the patient states that she was not experiencing any cough. PAST MEDICAL HISTORY: Please see history of present illness: 1. POTS (positional orthostatic tachycardia syndrome). 2. Inflammatory IBS. 3. History of kidney stones. 4. GERD. 5. Tonsillectomy and adenoidectomy. 6. History of ovarian cyst. 7. Hypothyroidism. 8. Migraines. 9. Seizure disorder. She states that the last episode of seizure was approximately 2 years ago. She states that her boyfriend witnessed them, but denies following up with Neurology since that event. MEDICATIONS: 1. Phenergan. 2. Protonix. 3. Imitrex. 4. Inderal LA. 5. Zofran ODT. 6. Nortriptyline. 7. Multivitamin. 8. Midodrine. 9. Ibuprofen. ALLERGIES: Acetaminophen, adhesive, clindamycin, codeine, levofloxacin, morphine, oxycodone, sulfa, trimethoprim and vancomycin. REVIEW OF SYSTEMS: General: Denies fever or chills. HEENT: No sore throat, rhinorrhea, or congestion. Please see history of present illness. Respiratory: No shortness of breath. Cardiac: Denies any substernal chest pain. Chest: Please see history of present illness. GI: No nausea, vomiting or diarrhea. No melena, hematochezia or hematemesis. : Denies any dysuria. Musculoskeletal: No myalgias or arthralgias. Neurologic: Please see history of present illness. PHYSICAL EXAMINATION: General: This is a 36-year-old female patient, who is in no acute distress. Vital Signs: Temperature is 36.3, heart rate 100, blood pressure 137/82, respiratory rate 20, O2 saturations 96% on room air. Skin: Warm, pink, and dry. HEENT: Head is normocephalic, atraumatic. Eyes, PERRLA. Extraocular movements are intact. There is no funduscopic papilledema noted. Ears, TMs are clear. Mouth, oral mucosa is dry. No erythema or exudate noted in the hypopharynx. Neck: Supple without masses. There is no lymphadenopathy. Lungs: Clear to auscultation. Heart: Regular rate and rhythm. Abdomen: Soft, nontender. There is no hepatosplenomegaly or masses noted. Extremities: Without edema. Musculoskeletal: She does have point tenderness to the left posterior lateral back area. She states the discomfort is worse with flexion, extension and lateral bending. No obvious step-offs, deformity or crepitus noted. Again, lungs are otherwise clear. No rubs noted. Neurologic: She is alert and oriented. Answers all questions appropriately. Her speech is fluent. Her gait is within normal limits. LABORATORY DATA: WBC 8.2, hemoglobin is 12.7, platelets are 328. Coags: PT is 9.9, INR is 0.9. D-dimer is 0.23. Chemistry: Sodium is 135, potassium is 3.8, chloride is 104, bicarb is 30, BUN is 7, creatinine is 0.8. GFR is greater than 60, glucose is 87, calcium is 8.7, corrected calcium is 8.94. Total bilirubin is 0.3, AST is 13, ALT is 19, alkaline phosphatase is 66, troponin is less than 0.017. C-reactive protein is 0.4, total protein is 6.9, albumin is 3.7. Urinalysis is obtained. Specific gravity is 1.025. After 1 L of normal saline, pH was 6.0. Negative for protein and glucose. Did have a trace of ketones. Negative of occult blood, nitrites, bilirubin and leukocyte esterase. RADIOGRAPHIC DATA: CT scan of the patient's brain was obtained. It did not reveal any acute pathology. A 2-view chest x-ray was obtained. There was no evidence of any acute pathology. EMERGENCY ROOM COURSE: IV access was established. She was given a liter of normal saline IV. She was given Solu-Medrol 125 mg IV and Toradol 30 mg IV. She reported no significant improvement in her discomfort. She remained stable in my care in the emergency room. ASSESSMENT: 1. Migraine headache. 2. Pleuritic chest pain. PLAN: We will start her on prednisone 40 mg once daily for 5 days. Also, we will start her on naproxen 500 mg twice daily for discomfort. I did give her a short course of Tylenol No. 3 with instructions to take 1 to 2 every 4 to 6 hours as needed for pain. Follow up in the clinic in the next 7 to 10 days or sooner if she is developing worsening discomfort, shortness of breath or pain. All questions were answered. SEBASTIÁNK: 04/29/2017 19:01:04 MODL: 04/29/2017 23:56:48 /[id number]
== END 2017-04-29 18:45 | disposition home or self-care (01) ==
LOC: VM.ED 15:50
DX: G43.909 Migraine, unspecified, not intractable, without status migrainosus (principal); R07.81 Pleurodynia; K21.9 Gastro-esophageal reflux disease without esophagitis; E03.9 Hypothyroidism, unspecified; Z90.89 Acquired absence of other organs; Z88.5 Allergy status to narcotic agent; Z88.6 Allergy status to analgesic agent; Z88.2 Allergy status to sulfonamides; Z88.1 Allergy status to other antibiotic agents
CPT/HCPCS: 70450; 71020; 80053; 81001; 81025; 84484; 85025; 85379; 85610; 86140; 93005; 96361; 96374; 96375; 99285; A9270; J1885; J2930; J7030

== ENCOUNTER 2017-09-23 12:30 | Emergency (ER) | payer MEDICAID ==
--- NOTE | 2017-09-23 12:52 | EDM.PDOC ---
ED HPI GENERAL MEDICAL PROBLEM - General Chief Complaint: Syncope Stated Complaint: Passed out at school Time Seen by Provider: 09/23/17 12:37 Source of Information: Reports: Patient, RN, RN Notes Reviewed History Limitations: Reports: No Limitations - History of Present Illness INITIAL COMMENTS - FREE TEXT/NARRATIVE: C emergency room at [facility] after she had a syncopal episode while she was in class today. The patient did not have any prodromal symptoms. The patient states she was diagnosed with an upper respiratory infection last week and has not been drinking very well. The patient denies any head injury or trauma. The patient feels somewhat dizzy but this has been chronic in nature for her. The patient does have a cardiac history in which she has seen at [facility] in [place]. The patient states that she feels very dehydrated. Otherwise no other symptoms. The patient denies any chest pain or shortness of breath. The patient denies any other focal neurological deficit. The patient denies any nausea vomiting or diarrhea. Onset: Today, Sudden Onset Date: 09/23/17 Onset Time: 12:15 - Related Data Allergies Allergy/AdvReac Type Severity Reaction Status Date / Time adhesive Allergy Rash Verified 08/13/17 00:31 clindamycin Allergy Itching Verified 08/13/17 00:31 codeine Allergy Itching Verified 08/13/17 00:31 levofloxacin [From Levaquin] Allergy Rash Verified 08/13/17 00:31 morphine Allergy Itching Verified 08/13/17 00:31 oxycodone [From Percocet] Allergy Itching Verified 08/13/17 00:31 sulfamethoxazole Allergy Rash Verified 08/13/17 00:33 [From Bactrim] trimethoprim [From Bactrim] Allergy Rash Verified 08/13/17 00:33 vancomycin Allergy Redness Verified 08/13/17 00:31 Home Meds: Home Meds Multivitamin [One Daily] 1 each PO DAILY 12/25/14 [History] Ibuprofen [Advil] 200 - 600 mg PO ASDIRECTED PRN 04/10/16 [History] Midodrine 7.5 mg PO TID 04/10/16 [History] SUMAtriptan Succinate [Imitrex] 100 mg PO ASDIRECTED PRN 04/10/16 [History] Ondansetron [Zofran ODT] 4 mg PO Q6H PRN 10/15/16 [History] Propranolol [Inderal LA] 80 mg PO DAILY 10/15/16 [History] Naproxen [Naprosyn] 1 tab PO BID PRN 12/23/16 [History] Pantoprazole Sodium [Protonix] 40 mg PO DAILY 04/29/17 [History] Promethazine [Phenergan] 12.5 mg QID PRN 04/29/17 [History] Cephalexin [Keflex] 500 mg PO Q6HR #28 cap 08/13/17 [Rx] Metoprolol Tartrate 50 mg PO BID 08/13/17 [History] Ondansetron [Zofran ODT] 4 mg PO Q8H #10 tab.dis 08/13/17 [Rx] Phenazopyridine HCl [Pyridium] 200 mg PO BID PRN #6 tablet 08/13/17 [Rx] Azithromycin [IJP: Azithromycin] 250 mg PO DAILY 6 Days #6 tab 09/23/17 [Rx] Past Medical History - Past Health History Medical/Surgical History: Denies Medical/Surgical History HEENT History: Reports: Head Cardiovascular History: Reports: Other (See Below) Other Cardiovascular History: sinus tachycardia, POTS Gastrointestinal History: Reports: GERD, Inflammatory Bowel Disease Genitourinary History: Reports: Renal Calculus Other Genitourinary History: gross hematuria 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 Sees neurology in [place]; unsure if they are true seizures or not. Other Endocrine/Metabolic History: borderline abn.thyroid lab Dermatologic History: Reports: Other (See Below) Other Dermatologic History: acne - Infectious Disease History Infectious Disease History: Reports: Chicken Pox, MRSA Other Infectious Disease History: Recent history of MRSA on her face. - Past Surgical History HEENT Surgical History: Reports: Adenoidectomy, Tonsillectomy Social & Family History - Family History Other Family History: mother has kidney problems Oncologic: Reports: Bladder Other Oncologic Family History: grandma - Tobacco Use Smoking Status *Q: Current Every Day Smoker Years of Tobacco use: 20 Packs/Tins Daily: 0.2 - Caffeine Use Caffeine Use: Reports: Coffee, Soda - Alcohol Use Days Per Week of Alcohol Use: 0 - Recreational Drug Use Recreational Drug Use: No ED ROS GENERAL - Review of Systems Review Of Systems: See Below Constitutional: Denies: Fever, Chills, Weakness HEENT: Reports: Sinus Problem, Throat Pain, Throat Swelling Respiratory: Reports: Cough. Denies: Shortness of Breath Cardiovascular: Reports: Palpitations. Denies: Chest Pain GI/Abdominal: Denies: Abdominal Pain, Nausea, Vomiting Skin: Reports: No Symptoms Neurological: Reports: Syncope. Denies: Dizziness, Headache - Physical Exam Exam: See Below Exam Limited By: No Limitations General Appearance: Alert, No Apparent Distress Ears: Normal External Exam, Normal Canal, Normal TMs Nose: Normal Inspection Throat/Mouth: Other (pharyngeal exudate bilateral; foul odor to breath) Head Exam: Atraumatic, Normocephalic Neck: Supple Respiratory/Chest: No Respiratory Distress, Lungs Clear, Normal Breath Sounds Cardiovascular: Normal Peripheral Pulses, Regular Rate, Rhythm GI/Abdominal: Normal Bowel Sounds, Soft, Non-Tender Neuro Exam (Abbreviated): Alert, Oriented Skin Exam: Warm, Dry, Intact, Normal Color, No Rash Course - Orders/Labs/Meds Orders: Active Orders 24 hr Category Date Time Status CULTURE STREP A CONFIRMATION [] Stat Lab 09/23/17 13:16 Results STREP SCRN A RAPID W CULT CONF [] Stat Lab 09/23/17 13:16 Results Labs: Laboratory Tests 09/23/17 09/23/17 Range/Units 13:00 13:00 WBC 7.1 (4.0-10.0) x10^3/uL RBC 4.30 (4.00-5.50) x10^6/uL Hgb 13.2 (12.0-16.0) g/dL Hct 39.4 (33.0-47.0) % MCV 91.6 (78.0-93.0) fL MCH 30.7 (26.0-32.0) pg MCHC 33.5 (32.0-36.0) g/dL RDW Coeff of Nydia 13.4 (10.0-15.0) % Plt Count 314 (130-400) x10^3/uL Neut % (Auto) 55.4 (50.0-80.0) % Lymph % (Auto) 32.4 (25.0-50.0) % [place] % (Auto) 8.4 (2.0-11.0) % Eos % (Auto) 3.1 (0.0-4.0) % Baso % (Auto) 0.7 (0.2-1.2) % Sodium 137 (136-145) mmol/L Potassium 3.9 (3.5-5.1) mmol/L Chloride 104 (98-107) mmol/L Carbon Dioxide 25 (21-32) mmol/L BUN 9 (7-18) mg/dL Creatinine 0.8 (0.55-1.02) mg/dL Est Cr Clr Drug Dosing TNP Estimated GFR (MDRD) > 60 Glucose 76 (74-106) mg/dL Calcium 8.7 (8.5-10.1) mg/dL Departure - Departure Time of Disposition: 13:49 Disposition: Home, Self-Care 01 Condition: Good Clinical Impression: Exudative pharyngitis Syncope Qualifiers: Syncope type: unspecified Qualified Code(s): R55 - Syncope and collapse - Discharge Information Prescriptions: Azithromycin [IJP: Azithromycin] 250 mg PO DAILY 6 Days #6 tab Instructions: Syncope, [id number], Dehydration, Adult, [id number] Referrals: Elle Rajput MD [Primary Care Provider] - Forms: ED Department Discharge Additional Instructions: 1. Stay well hydrated and rest 2. Take medications for the full coarse, even if you are feeling better 3. LOTS of water 4. Blood work was normal 5. See your Primary as symptoms warrant 6. Call with any questions/concerns - Problem List Review Problem List Initiated/Reviewed/Updated: Yes - My Orders Last 24 Hours: My Active Orders 09/23/17 13:16 CULTURE STREP A CONFIRMATION [RM] Stat STREP SCRN A RAPID W CULT CONF [] Stat - Assessment/Plan Last 24 Hours: My Active Orders 09/23/17 13:16 CULTURE STREP A CONFIRMATION [RM] Stat STREP SCRN A RAPID W CULT CONF [] Stat
[2017-09-23] MEDS: Sodium Chloride 0.9% 1,000 ML IV ONE (13:03)
[2017-09-23 13:21] LABS: CHLORIDE,CL 104 mmol/L (98-107)
[2017-09-23 13:33] LABS: SODIUM,NA 137 mmol/L (136-145)
[2017-09-23 15:33] VITALS: BP 132/62
== END 2017-09-23 14:30 | disposition home or self-care (01) ==
LOC: VM.ED 12:30
DX: R55 Syncope and collapse (principal); J02.9 Acute pharyngitis, unspecified; F17.210 Nicotine dependence, cigarettes, uncomplicated; Z88.1 Allergy status to other antibiotic agents; Z88.5 Allergy status to narcotic agent; Z88.2 Allergy status to sulfonamides; Z88.8 Allergy status to other drugs, medicaments and biological substances; Z79.899 Other long term (current) drug therapy
CPT/HCPCS: 36415; 80048; 85025; 87081; 87804; 87880; 96360; 99284; J7030

== ENCOUNTER 2017-10-31 23:15 | Emergency (ER) | payer MEDICAID ==
[2017-10-31] MEDS ORDERED: Sodium Chloride 0.9% 10 ML Syringe FLUSH PRN (23:26)
--- NOTE | 2017-10-31 23:32 | EDM.PDOC ---
ED HPI GENERAL MEDICAL PROBLEM - General Chief Complaint: Abdominal Pain Stated Complaint: LLQ abdominal pain Time Seen by Provider: 10/31/17 23:24 Source of Information: Reports: Patient History Limitations: Reports: No Limitations - History of Present Illness INITIAL COMMENTS - FREE TEXT/NARRATIVE: Patient presents to the emergency room this evening with complaints of left lower quadrant abdominal pain. She states it started early this afternoon and has progressively worsened. She states that she has had some nausea associated with it. She also states that it is a sharp pain that intermittently radiates to the lower right side. She does state that she has at times had prior episodes of lower right quadrant abdominal pain. She does state that she's had both an appendectomy as well as a cholecystectomy. Denies any history of endometriosis or IBS/IBD. Also reports history of ovarian cysts, migraine headaches, and prior Depo-Provera shots. Her last depo shot was in April of last year. She states that this did not agree with her so she did not get her scheduled injection in August. Side effects included mood instability as well as severe weight gain. This evening she denies headache, chest pain, shortness of breath, vomiting, fever or chills, as well as refusing any neurological impairment. No urinary symptoms. She denies smoking, drug use, and states she drinks 1 or 2 alcoholic drinks once or twice a month. Onset: Today, Gradual Duration: Getting Worse Location: Reports: Abdomen Quality: Reports: Sharp Severity: Moderate Worsens with: Reports: Movement Associated Symptoms: Reports: Nausea/Vomiting LL Quad abdominal pain Pain Score (Numeric/FACES): 2 - Related Data Allergies Allergy/AdvReac Type Severity Reaction Status Date / Time adhesive Allergy Rash Verified 10/31/17 23:22 clindamycin Allergy Itching Verified 10/31/17 23:22 codeine Allergy Itching Verified 10/31/17 23:22 levofloxacin [From Levaquin] Allergy Rash Verified 10/31/17 23:22 sulfamethoxazole Allergy Rash Verified 10/31/17 23:22 [From Bactrim] trimethoprim [From Bactrim] Allergy Rash Verified 10/31/17 23:22 vancomycin Allergy Redness Verified 10/31/17 23:22 Home Meds: Home Meds Multivitamin [One Daily] 1 each PO DAILY 12/25/14 [History] Ibuprofen [Advil] 200 - 600 mg PO ASDIRECTED PRN 04/10/16 [History] Midodrine 7.5 mg PO TID 04/10/16 [History] SUMAtriptan Succinate [Imitrex] 100 mg PO ASDIRECTED PRN 04/10/16 [History] Ondansetron [Zofran ODT] 4 mg PO Q6H PRN 10/15/16 [History] Propranolol [Inderal LA] 80 mg PO DAILY 10/15/16 [History] Naproxen [Naprosyn] 1 tab PO BID PRN 12/23/16 [History] Pantoprazole Sodium [Protonix] 40 mg PO DAILY 04/29/17 [History] Promethazine [Phenergan] 12.5 mg QID PRN 04/29/17 [History] Cephalexin [Keflex] 500 mg PO Q6HR #28 cap 08/13/17 [Rx] Metoprolol Tartrate 50 mg PO BID 08/13/17 [History] Ondansetron [Zofran ODT] 4 mg PO Q8H #10 tab.dis 08/13/17 [Rx] Phenazopyridine HCl [Pyridium] 200 mg PO BID PRN #6 tablet 08/13/17 [Rx] Azithromycin [IJP: Azithromycin] 250 mg PO DAILY 6 Days #6 tab 09/23/17 [Rx] Past Medical History - Past Health History Medical/Surgical History: Denies Medical/Surgical History HEENT History: Reports: Head Cardiovascular History: Reports: Other (See Below) Other Cardiovascular History: sinus tachycardia, POTS Gastrointestinal History: Reports: GERD, Inflammatory Bowel Disease Genitourinary History: Reports: Renal Calculus Other Genitourinary History: gross hematuria 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 Sees neurology in [place]; unsure if they are true seizures or not. Other Endocrine/Metabolic History: borderline abn.thyroid lab Dermatologic History: Reports: Other (See Below) Other Dermatologic History: acne - Infectious Disease History Infectious Disease History: Reports: Chicken Pox, MRSA Other Infectious Disease History: Recent history of MRSA on her face. - Past Surgical History HEENT Surgical History: Reports: Adenoidectomy, Tonsillectomy Social & Family History - Family History Other Family History: mother has kidney problems Oncologic: Reports: Bladder Other Oncologic Family History: grandma - Tobacco Use Smoking Status *Q: Current Every Day Smoker Years of Tobacco use: 20 Packs/Tins Daily: 0.2 - Caffeine Use Caffeine Use: Reports: Coffee, Soda - Alcohol Use Days Per Week of Alcohol Use: 0 - Recreational Drug Use Recreational Drug Use: No ED ROS GENERAL - Review of Systems Review Of Systems: See Below Constitutional: Reports: No Symptoms HEENT: Reports: No Symptoms Respiratory: Reports: No Symptoms Cardiovascular: Reports: No Symptoms Endocrine: Reports: No Symptoms GI/Abdominal: Reports: Abdominal Pain, Nausea : Reports: No Symptoms Musculoskeletal: Reports: No Symptoms Skin: Reports: No Symptoms Neurological: Reports: No Symptoms Psychiatric: Reports: No Symptoms Hematologic/Lymphatic: Reports: No Symptoms Immunologic: Reports: No Symptoms ED EXAM, GI/ABD - Physical Exam Exam: See Below Exam Limited By: No Limitations Course - Vital Signs Last Recorded V/S: Last Vital Signs Temp 36.4 C 10/31/17 23:15 Pulse 82 11/01/17 00:31 Resp 20 10/31/17 23:15 BP 121/88 11/01/17 00:31 Pulse Ox 96 10/31/17 23:15 - Orders/Labs/Meds Labs: Laboratory Tests 10/31/17 10/31/17 10/31/17 Range/Units 23:26 23:26 23:36 WBC 7.6 (4.0-10.0) x10^3/uL RBC 4.18 (4.00-5.50) x10^6/uL Hgb 13.0 (12.0-16.0) g/dL Hct 37.8 (33.0-47.0) % MCV 90.4 (78.0-93.0) fL MCH 31.1 (26.0-32.0) pg MCHC 34.4 (32.0-36.0) g/dL RDW Coeff of Nydia 13.2 (10.0-15.0) % Plt Count 310 (130-400) x10^3/uL Neut % (Auto) 49.6 L (50.0-80.0) % Lymph % (Auto) 39.6 (25.0-50.0) % [place] % (Auto) 7.1 (2.0-11.0) % Eos % (Auto) 3.0 (0.0-4.0) % Baso % (Auto) 0.7 (0.2-1.2) % Sodium (136-145) mmol/L Potassium (3.5-5.1) mmol/L Chloride (98-107) mmol/L Carbon Dioxide (21-32) mmol/L BUN (7-18) mg/dL Creatinine (0.55-1.02) mg/dL Est Cr Clr Drug Dosing mL/min Estimated GFR (MDRD) Glucose (74-106) mg/dL Calcium (8.5-10.1) mg/dL Corrected Calcium (8.5-10.1) mg/dL Total Bilirubin (0.2-1.0) mg/dL AST (15-37) U/L ALT (14-59) U/L Alkaline Phosphatase (46-116) U/L C-Reactive Protein (<=0.9) mg/dL Total Protein (6.4-8.2) g/dL Albumin (3.4-5.0) g/dL Globulin Albumin/Globulin Ratio Amylase (25-115) U/L Urine Color Yellow (YELLOW) Urine Appearance Slightly cloudy H (CLEAR) Urine pH 5.5 (5.0-8.0) Ur Specific [place] 1.020 Urine Protein Negative (NEGATIVE) mg/dL Urine Glucose (UA) Negative (NEGATIVE) mg/dL Urine Ketones Negative (NEGATIVE) mg/dL Urine Occult Blood Moderate H (NEGATIVE) Urine Nitrite Negative (NEGATIVE) Urine Bilirubin Negative (NEGATIVE) Urine Urobilinogen 0.2 (0.2) EU/dL Ur Leukocyte Esterase Negative (NEGATIVE) Urine RBC 5-10 H (NOT SEEN) /HPF Urine WBC 0-5 (NOT SEEN) /HPF Ur Squamous Epith Cells Few H (NEGATIVE) /HPF Urine Bacteria Few H (NEGATIVE) /HPF Urine Mucus Moderate H (NEGATIVE) /LPF Urine HCG, Qual Negative (NEGATIVE) 10/31/17 Range/Units 23:36 WBC (4.0-10.0) x10^3/uL RBC (4.00-5.50) x10^6/uL Hgb (12.0-16.0) g/dL Hct (33.0-47.0) % MCV (78.0-93.0) fL MCH (26.0-32.0) pg MCHC (32.0-36.0) g/dL RDW Coeff of Nydia (10.0-15.0) % Plt Count (130-400) x10^3/uL Neut % (Auto) (50.0-80.0) % Lymph % (Auto) (25.0-50.0) % [place] % (Auto) (2.0-11.0) % Eos % (Auto) (0.0-4.0) % Baso % (Auto) (0.2-1.2) % Sodium 139 (136-145) mmol/L Potassium 3.5 (3.5-5.1) mmol/L Chloride 106 (98-107) mmol/L Carbon Dioxide 21 (21-32) mmol/L BUN 8 (7-18) mg/dL Creatinine 0.8 (0.55-1.02) mg/dL Est Cr Clr Drug Dosing 91.88 mL/min Estimated GFR (MDRD) > 60 Glucose 118 H (74-106) mg/dL Calcium 8.7 (8.5-10.1) mg/dL Corrected Calcium 8.94 (8.5-10.1) mg/dL Total Bilirubin 0.3 (0.2-1.0) mg/dL AST 13 L (15-37) U/L ALT 20 (14-59) U/L Alkaline Phosphatase 66 (46-116) U/L C-Reactive Protein < 0.2 (<=0.9) mg/dL Total Protein 7.1 (6.4-8.2) g/dL Albumin 3.7 (3.4-5.0) g/dL Globulin 3.4 Albumin/Globulin Ratio 1.09 Amylase 45 (25-115) U/L Urine Color (YELLOW) Urine Appearance (CLEAR) Urine pH (5.0-8.0) Ur Specific [place] Urine Protein (NEGATIVE) mg/dL Urine Glucose (UA) (NEGATIVE) mg/dL Urine Ketones (NEGATIVE) mg/dL Urine Occult Blood (NEGATIVE) Urine Nitrite (NEGATIVE) Urine Bilirubin (NEGATIVE) Urine Urobilinogen (0.2) EU/dL Ur Leukocyte Esterase (NEGATIVE) Urine RBC (NOT SEEN) /HPF Urine WBC (NOT SEEN) /HPF Ur Squamous Epith Cells (NEGATIVE) /HPF Urine Bacteria (NEGATIVE) /HPF Urine Mucus (NEGATIVE) /LPF Urine HCG, Qual (NEGATIVE) Meds: Medications Discontinued Medications Generic Name Dose Route Start Last Admin Trade Name Susi PRN Reason Stop Dose Admin Ceftriaxone Sodium 2 gm 11/01/17 01:25 11/01/17 01:32 Rocephin IVPUSH 11/01/17 01:26 2 gm ONETIME ONE Administration Hydromorphone HCl 1 mg 11/01/17 00:17 11/01/17 00:20 Dilaudid IVPUSH 11/01/17 00:18 1 mg ONETIME ONE Administration Hydromorphone HCl 1 mg 11/01/17 01:29 11/01/17 01:40 Dilaudid IVPUSH 11/01/17 01:30 1 mg ONETIME ONE Administration Lactated Ringer's 1,000 mls @ 999 mls/hr 10/31/17 23:26 10/31/17 23:35 Ringers, Lactated IV 11/01/17 00:26 999 mls/hr .BOLUS ONE Administration Ketorolac Tromethamine 15 mg 10/31/17 23:26 10/31/17 23:45 Toradol IVPUSH 10/31/17 23:27 15 mg ONETIME ONE Administration Sodium Chloride 10 ml 10/31/17 23:26 Saline Flush FLUSH ASDIRECTED PRN Keep Vein Open Departure - Departure Time of Disposition: 02:00 Disposition: Home, Self-Care 01 Condition: Good Clinical Impression: Pyelonephritis - Discharge Information Instructions: Pyelonephritis, Adult, [id number] Referrals: PCP,[facility] [Primary Care Provider] - Forms: ED Department Discharge Additional Instructions: Your CT and labs were negative with the exception of mucous and blood in your urine. I am treating you for a pyelonephritis with Cipro 500 mg twice daily for 7 days We will culture the urine and call you if the bacteria is resistant, if so we will have a different antibiotic to take Alternate tylenol and ibuprofen every 3 hours. Do not take more than 3,000 mg of tylenol per day. Drink plenty of water to flush the kidneys Follow up with your primary doctor as symptoms warrant Please call with any questions or concerns - Problem List & Annotations (1) Pyelonephritis SNOMED Code(s): 83700493 Code(s): N12 - TUBULO-INTERSTITIAL NEPHRITIS, NOT SPCF ACUTE OR CHRONIC Status: Acute Priority: Medium - Problem List Review Problem List Initiated/Reviewed/Updated: Yes - Assessment/Plan Assessment:: pyelonephritis Plan: Your CT and labs were negative with the exception of mucous and blood in your urine. I am treating you for a pyelonephritis with Cipro 500 mg twice daily for 7 days We will culture the urine and call you if the bacteria is resistant, if so we will have a different antibiotic to take Alternate tylenol and ibuprofen every 3 hours. Do not take more than 3,000 mg of tylenol per day. Drink plenty of water to flush the kidneys Follow up with your primary doctor as symptoms warrant Please call with any questions or concerns
[2017-10-31] MEDS: Lactated Ringers 1,000 ML IV ONE (23:35)
[2017-10-31] MEDS: Ketorolac 15 MG/ML SDV IVPUSH ONE (23:45)
[2017-11-01 00:09] LABS: CHLORIDE,CL 106 mmol/L (98-107); SODIUM,NA 139 mmol/L (136-145)
[2017-11-01] MEDS: HYDROmorphone 1 MG/ML Syringe IVPUSH ONE ×2 (00:20→01:40)
[2017-11-01 00:35] VITALS: BP 121/88
[2017-11-01] MEDS: cefTRIAXone 2 GM Vial IVPUSH ONE (01:32)
== END 2017-11-01 02:00 | disposition home or self-care (01) ==
LOC: VM.ED 23:15
DX: N12 Tubulo-interstitial nephritis, not specified as acute or chronic (principal); K21.9 Gastro-esophageal reflux disease without esophagitis; F17.210 Nicotine dependence, cigarettes, uncomplicated; Z88.1 Allergy status to other antibiotic agents; Z88.5 Allergy status to narcotic agent; Z88.8 Allergy status to other drugs, medicaments and biological substances; Z79.899 Other long term (current) drug therapy
CPT/HCPCS: 74176; 80053; 81001; 81025; 82150; 85025; 86140; 96361; 96374; 96375; 96376; 99284; J0696; J1170; J1885; J7120

== ENCOUNTER 2018-11-22 18:38 | Emergency (ER) | payer MEDICAID ==
[2018-11-22] MEDS ORDERED: Sodium Chloride 0.9% 10 ML Syringe FLUSH PRN (19:00)
[2018-11-22] MEDS ORDERED: Sodium Chloride 0.9% 1,000 ML IV ONE (19:03)
[2018-11-22] MEDS ORDERED: Ondansetron 4 MG/2 ML SDV IVPUSH ONE (19:04)
[2018-11-22] MEDS ORDERED: HYDROmorphone 1 MG/ML Syringe IVPUSH ONE (19:04)
--- NOTE | 2018-11-22 19:10 | EDM.PDOC ---
ED HPI GENERAL MEDICAL PROBLEM - General Chief Complaint: Abdominal Pain Stated Complaint: LEFT RIB PAIN;WORSE WHEN SHE EATS Time Seen by Provider: 11/22/18 18:40 Source of Information: Reports: Patient History Limitations: Reports: No Limitations - History of Present Illness INITIAL COMMENTS - FREE TEXT/NARRATIVE: Patient comes in the emergency department with severe left upper quadrant pain. The pain started approximately 2-3 hours ago. She has had intermittent pain over the course of the last week however it has progressed extensively over the course of last 2-3 hours. She describes a sharp shooting throbbing sensation. She states that it radiates across her abdominal cavity and across her flank area. She also states that she feels "bloated". She states that she's had significant amount of vomiting and nausea. Any time she eats today she vomits within minutes. She is unable to get comfortable but it does get worse if she tries to eat. Quality: Reports: Dull, Sharp, Throbbing Severity: Severe Improves with: Reports: None Associated Symptoms: Reports: No Other Symptoms Left Upper Abdomen Pain Score (Numeric/FACES): 8 - Related Data Allergies Allergy/AdvReac Type Severity Reaction Status Date / Time adhesive Allergy Rash Verified 11/22/18 18:58 clindamycin Allergy Itching Verified 11/22/18 18:58 codeine Allergy Itching Verified 11/22/18 18:58 levofloxacin [From Levaquin] Allergy Rash Verified 11/22/18 18:58 sulfamethoxazole Allergy Rash Verified 11/22/18 18:58 [From Bactrim] trimethoprim [From Bactrim] Allergy Rash Verified 11/22/18 18:58 vancomycin Allergy Redness Verified 11/22/18 18:58 Home Meds: Home Meds Multivitamin [One Daily] 1 each PO DAILY 12/25/14 [History] Ibuprofen [Advil] 200 - 600 mg PO ASDIRECTED PRN 04/10/16 [History] Midodrine 7.5 mg PO TID 04/10/16 [History] SUMAtriptan Succinate [Imitrex] 100 mg PO ASDIRECTED PRN 04/10/16 [History] Ondansetron [Zofran ODT] 4 mg PO Q6H PRN 10/15/16 [History] Propranolol [Inderal LA] 80 mg PO DAILY 10/15/16 [History] Naproxen [Naprosyn] 1 tab PO BID PRN 12/23/16 [History] Pantoprazole Sodium [Protonix] 40 mg PO DAILY 04/29/17 [History] Promethazine [Phenergan] 12.5 mg QID PRN 04/29/17 [History] Cephalexin [Keflex] 500 mg PO Q6HR #28 cap 08/13/17 [Rx] Metoprolol Tartrate 50 mg PO BID 08/13/17 [History] Ondansetron [Zofran ODT] 4 mg PO Q8H #10 tab.dis 08/13/17 [Rx] Phenazopyridine HCl [Pyridium] 200 mg PO BID PRN #6 tablet 08/13/17 [Rx] Azithromycin [IJP: Azithromycin] 250 mg PO DAILY 6 Days #6 tab 09/23/17 [Rx] Past Medical History - Past Health History Medical/Surgical History: Denies Medical/Surgical History HEENT History: Reports: Head Cardiovascular History: Reports: Other (See Below) Other Cardiovascular History: sinus tachycardia, POTS Gastrointestinal History: Reports: GERD, Inflammatory Bowel Disease Genitourinary History: Reports: Renal Calculus Other Genitourinary History: gross hematuria 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 Sees neurology in [place]; unsure if they are true seizures or not. Other Endocrine/Metabolic History: borderline abn.thyroid lab Dermatologic History: Reports: Other (See Below) Other Dermatologic History: acne - Infectious Disease History Infectious Disease History: Reports: Chicken Pox, MRSA Other Infectious Disease History: Recent history of MRSA on her face. - Past Surgical History HEENT Surgical History: Reports: Adenoidectomy, Tonsillectomy Social & Family History - Family History Other Family History: mother has kidney problems Oncologic: Reports: Bladder Other Oncologic Family History: grandma - Caffeine Use Caffeine Use: Reports: Coffee, Soda ED ROS GENERAL - Review of Systems Review Of Systems: See Below Constitutional: Reports: No Symptoms HEENT: Reports: No Symptoms Respiratory: Reports: No Symptoms Cardiovascular: Reports: No Symptoms Endocrine: Reports: No Symptoms GI/Abdominal: Reports: Abdominal Pain, Anorexia, Distension, Nausea, Vomiting Musculoskeletal: Reports: No Symptoms Skin: Reports: No Symptoms Neurological: Reports: No Symptoms Psychiatric: Reports: No Symptoms Hematologic/Lymphatic: Reports: No Symptoms Immunologic: Reports: No Symptoms ED EXAM, GENERAL - Physical Exam Exam: See Below Exam Limited By: No Limitations General Appearance: Alert, WD/WN, No Apparent Distress Head: Atraumatic, Normocephalic Respiratory/Chest: No Respiratory Distress, Lungs Clear, Normal Breath Sounds, No Accessory Muscle Use, Chest Non-Tender Cardiovascular: Normal Peripheral Pulses, Regular Rate, Rhythm GI/Abdominal: Normal Bowel Sounds, Distended, Guarding, Rebound, Tender Neurological: Alert, Oriented Psychiatric: Normal Affect, Normal Mood Skin Exam: Warm, Dry, Intact, Normal Color Course - Vital Signs Last Recorded V/S: Last Vital Signs Temp 37.0 C 11/22/18 18:45 Pulse 116 H 11/22/18 18:45 Resp 20 11/22/18 18:45 BP 143/101 H 11/22/18 18:45 Pulse Ox 97 11/22/18 18:45 - Orders/Labs/Meds Orders: Active Orders 24 hr Category Date Time Status Abdomen Pelvis w Cont [CT] Stat Exams 11/22/18 19:06 Taken Sodium Chloride 0.9% [Saline Flush] Med 11/22/18 19:00 Active 10 ml FLUSH ASDIRECTED PRN Peripheral IV Insertion Adult [OM.PC] Stat Oth 11/22/18 19:00 Ordered Medication Orders Sodium Chloride (Saline Flush) 10 ml FLUSH ASDIRECTED PRN PRN Reason: Keep Vein Open Labs: Laboratory Tests 11/22/18 11/22/18 Range/Units 19:20 19:20 WBC 7.2 (4.0-10.0) x10^3/uL RBC 4.37 (4.00-5.50) x10^6/uL Hgb 13.2 (12.0-16.0) g/dL Hct 40.1 (33.0-47.0) % MCV 91.8 (78.0-93.0) fL MCH 30.2 (26.0-32.0) pg MCHC 32.9 (32.0-36.0) g/dL RDW Coeff of Yndia 12.9 (10.0-15.0) % Plt Count 364 (130-400) x10^3/uL Neut % (Auto) 48.3 L (50.0-80.0) % Lymph % (Auto) 39.9 (25.0-50.0) % [place] % (Auto) 7.8 (2.0-11.0) % Eos % (Auto) 3.2 (0.0-4.0) % Baso % (Auto) 0.8 (0.2-1.2) % Sodium 140 (136-145) mmol/L Potassium 3.5 (3.5-5.1) mmol/L Chloride 103 (98-107) mmol/L Carbon Dioxide 25 (21-32) mmol/L Anion Gap 15.5 (10-20) mmol/L BUN 12 (7-18) mg/dL Creatinine 0.7 (0.55-1.02) mg/dL Est Cr Clr Drug Dosing 104.01 mL/min Estimated GFR (MDRD) > 60 Glucose 110 H (74-106) mg/dL Calcium 9.4 (8.5-10.1) mg/dL Corrected Calcium 9.80 (8.5-10.1) mg/dL Total Bilirubin 0.2 (0.2-1.0) mg/dL AST 26 (15-37) U/L ALT 46 (14-59) U/L Alkaline Phosphatase 77 (46-116) U/L Creatine Kinase 47 (26-192) U/L C-Reactive Protein 0.6 (<=0.9) mg/dL Total Protein 7.1 (6.4-8.2) g/dL Albumin 3.5 (3.4-5.0) g/dL Globulin 3.6 Albumin/Globulin Ratio 0.97 Amylase 52 (25-115) U/L Lipase 179 (73-393) U/L Meds: Medications Generic Name Dose Route Start Last Admin Trade Name Freq PRN Reason Stop Dose Admin Sodium Chloride 10 ml 11/22/18 19:00 Saline Flush FLUSH ASDIRECTED PRN Keep Vein Open Discontinued Medications Generic Name Dose Route Start Last Admin Trade Name Freq PRN Reason Stop Dose Admin Hydromorphone HCl 1 mg 11/22/18 19:04 11/22/18 19:27 Dilaudid IVPUSH 11/22/18 19:05 1 mg ONETIME ONE Administration Sodium Chloride 1,000 mls @ 1,000 mls/hr 11/22/18 19:03 11/22/18 19:26 Normal Saline IV 11/22/18 20:02 1,000 mls/hr ONETIME ONE Administration Iopamidol 100 ml 11/22/18 19:56 11/22/18 20:06 Isovue-300 (61%) IVPUSH 11/22/18 19:57 100 ml ONETIME ONE Administration Ondansetron HCl 4 mg 11/22/18 19:04 11/22/18 19:27 Zofran IVPUSH 11/22/18 19:05 4 mg ONETIME ONE Administration Departure - Departure Time of Disposition: 21:50 Disposition: Home, Self-Care 01 Condition: Good Clinical Impression: Constipation Qualifiers: Constipation type: unspecified constipation type Qualified Code(s): K59.00 - Constipation, unspecified - Discharge Information *PRESCRIPTION DRUG MONITORING PROGRAM REVIEWED*: Not Applicable *COPY OF PRESCRIPTION DRUG MONITORING REPORT IN PATIENT ROBERTO: Not Applicable Instructions: Constipation, Adult, High-Fiber Diet Forms: ED Department Discharge Additional Instructions: 1. rest 2. increase water intake 3. Can use hot pad to help with discomfort 4. Increase fiber intake 5. Diet and exercise as tolerated 6. follow up as needed 7. Call with any questions or concerns - My Orders Last 24 Hours: My Active Orders 11/22/18 19:00 Sodium Chloride 0.9% [Saline Flush] 10 ml FLUSH ASDIRECTED PRN Peripheral IV Insertion Adult [OM.PC] Stat 11/22/18 19:06 Abdomen Pelvis w Cont [CT] Stat - Assessment/Plan Last 24 Hours: My Active Orders 11/22/18 19:00 Sodium Chloride 0.9% [Saline Flush] 10 ml FLUSH ASDIRECTED PRN Peripheral IV Insertion Adult [OM.PC] Stat 11/22/18 19:06 Abdomen Pelvis w Cont [CT] Stat Assessment:: 1. abdominal pain 2. Constipation Plan: 1. Labs completed in the ER. Results reviewed with the patient 2. CT scan completed in the ER. Results reviewed with the patient 3. IV with hydration initiated in the ER 4. pain medication provided to the patient ER to help with comfort 5. Patient education given
[2018-11-22 19:11] VITALS: BP 143/101
[2018-11-22 19:47] LABS: CHLORIDE,CL 103 mmol/L (98-107); SODIUM,NA 140 mmol/L (136-145)
[2018-11-22 19:54] LABS: ANION GAP 15.5 mmol/L (10-20)
[2018-11-22] MEDS ORDERED: Iopamidol 612 MG/ML 100 ML Bottle IVPUSH ONE (19:56)
--- NOTE | 2018-11-23 09:22 | CT ---
[id number] CT/CT Abdomen Pelvis W IV EXAM: CT Abdomen Pelvis W IV CLINICAL DATA: LEFT UPPER QUADRANT PAIN COMPARISON STUDY: November 01, 2017. FINDINGS: Minimal dependent atelectasis at the lung bases. Liver, spleen, pancreas, adrenal glands, and kidneys are unremarkable. The gallbladder is surgically absent. No bowel obstruction or inflammation. The appendix is not well visualized and likely surgically absent. Colonic diverticulosis without evidence of acute diverticulitis. There is moderate to large amount of stool within the colon. No lymphadenopathy, free fluid, or pneumoperitoneum. 3.7 cm right adnexal cyst. No fracture or osseous lesion. IMPRESSION: 1. Large amount of retained stool within the colon. Correlate for signs of constipation. 2. 3.7 cm right adnexal cyst. Joe Mock DO 11/23/18 0921 Thank you for allowing us to participate in the care of your patient.
== END 2018-11-22 21:00 | disposition home or self-care (01) ==
LOC: VM.ED 18:38
DX: K59.00 Constipation, unspecified (principal); K21.9 Gastro-esophageal reflux disease without esophagitis; Z79.899 Other long term (current) drug therapy; Z88.1 Allergy status to other antibiotic agents; Z88.8 Allergy status to other drugs, medicaments and biological substances; Z91.09 Other allergy status, other than to drugs and biological substances
CPT/HCPCS: 74177; 80053; 82150; 82550; 83690; 85025; 86140; 96361; 96374; 96375; 99284; J1170; J2405; J7030; Q9967

== ENCOUNTER 2018-12-06 11:35 | Emergency (ER) | payer MEDICAID ==
--- NOTE | 2018-12-06 11:38 | EDM.PDOC ---
ED HPI GENERAL MEDICAL PROBLEM - General Chief Complaint: Skin Complaint Stated Complaint: SWOLLEN FACE, CHILLS Time Seen by Provider: 12/06/18 11:36 Source of Information: Reports: Patient, RN, RN Notes Reviewed History Limitations: Reports: No Limitations - History of Present Illness INITIAL COMMENTS - FREE TEXT/NARRATIVE: Patient presents to the ED at [facility] for the evaluation of a cystic acne flare-up. Patient states the facial pain started last evening and has progressively gotten worse. The patient states she is having considerable facial pain and swelling. Eyes are watery. No vision problems. 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 She has been to Dermatology on several different occasions. She states her acne has been under fairly good control until last night. She has not been to a tanning yung or out in the sun. Patient is currently not on any antibiotics. Face/Facial Pain Score (Numeric/FACES): 7 - Related Data Allergies Allergy/AdvReac Type Severity Reaction Status Date / Time adhesive Allergy Rash Verified 11/22/18 18:58 clindamycin Allergy Itching Verified 11/22/18 18:58 codeine Allergy Itching Verified 11/22/18 18:58 levofloxacin [From Levaquin] Allergy Rash Verified 11/22/18 18:58 sulfamethoxazole Allergy Rash Verified 11/22/18 18:58 [From Bactrim] trimethoprim [From Bactrim] Allergy Rash Verified 11/22/18 18:58 vancomycin Allergy Redness Verified 11/22/18 18:58 Home Meds: Home Meds Multivitamin [One Daily] 1 each PO DAILY 12/25/14 [History] Ibuprofen [Advil] 200 - 600 mg PO ASDIRECTED PRN 04/10/16 [History] Midodrine 7.5 mg PO TID 04/10/16 [History] SUMAtriptan Succinate [Imitrex] 100 mg PO ASDIRECTED PRN 04/10/16 [History] Ondansetron [Zofran ODT] 4 mg PO Q6H PRN 10/15/16 [History] Propranolol [Inderal LA] 80 mg PO DAILY 10/15/16 [History] Naproxen [Naprosyn] 1 tab PO BID PRN 12/23/16 [History] Pantoprazole Sodium [Protonix] 40 mg PO DAILY 04/29/17 [History] Promethazine [Phenergan] 12.5 mg QID PRN 04/29/17 [History] Cephalexin [Keflex] 500 mg PO Q6HR #28 cap 08/13/17 [Rx] Metoprolol Tartrate 50 mg PO BID 08/13/17 [History] Ondansetron [Zofran ODT] 4 mg PO Q8H #10 tab.dis 08/13/17 [Rx] Phenazopyridine HCl [Pyridium] 200 mg PO BID PRN #6 tablet 08/13/17 [Rx] Azithromycin [IJP: Azithromycin] 250 mg PO DAILY 6 Days #6 tab 09/23/17 [Rx] Doxycycline [Vibramycin] 100 mg PO BID 21 Days #42 cap 12/06/18 [Rx] predniSONE 20 mg PO BID 5 Days #10 tab 12/06/18 [Rx] Past Medical History - Past Health History Medical/Surgical History: Denies Medical/Surgical History HEENT History: Reports: Head Cardiovascular History: Reports: Other (See Below) Other Cardiovascular History: sinus tachycardia, POTS Gastrointestinal History: Reports: GERD, Inflammatory Bowel Disease Genitourinary History: Reports: Renal Calculus Other Genitourinary History: gross hematuria 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 Sees neurology in [place]; unsure if they are true seizures or not. Other Endocrine/Metabolic History: borderline abn.thyroid lab Dermatologic History: Reports: Other (See Below) Other Dermatologic History: acne - Infectious Disease History Infectious Disease History: Reports: Chicken Pox, MRSA Other Infectious Disease History: Recent history of MRSA on her face. - Past Surgical History HEENT Surgical History: Reports: Adenoidectomy, Tonsillectomy Social & Family History - Family History Other Family History: mother has kidney problems Oncologic: Reports: Bladder Other Oncologic Family History: grandma - Caffeine Use Caffeine Use: Reports: Coffee, Soda ED ROS GENERAL - Review of Systems Review Of Systems: See Below Constitutional: Denies: Fever, Chills Respiratory: Denies: Shortness of Breath, Cough Cardiovascular: Denies: Chest Pain, Palpitations GI/Abdominal: Reports: Nausea. Denies: Abdominal Pain, Vomiting Skin: Reports: Lesions, Other (facial swelling) Neurological: Reports: No Symptoms ED EXAM, SKIN/RASH Exam: See Below Exam Limited By: No Limitations General Appearance: Alert, No Apparent Distress Eye Exam: Bilateral Eye: Normal Inspection, PERRL Nose: Normal Inspection Respiratory/Chest: No Respiratory Distress, Lungs Clear, Normal Breath Sounds Cardiovascular: Normal Peripheral Pulses, Regular Rate, Rhythm GI/Abdominal: Normal Bowel Sounds, Soft, Non-Tender Neurological: Alert, Oriented Skin: Erythema, Rash Location, Skin: Face Characteristics: Erythematous, Other (pustular; nodulocystic) Associated features: Warmth, Tenderness, Swelling Course - Vital Signs Last Recorded V/S: Last Vital Signs Temp 36.5 C 12/06/18 11:43 Pulse 104 H 12/06/18 11:43 Resp 20 12/06/18 11:43 BP 146/106 H 12/06/18 11:43 Pulse Ox 97 12/06/18 11:43 - Orders/Labs/Meds Orders: Active Orders 24 hr Category Date Time Status CBC WITH AUTO DIFF [HEME] Stat Lab 12/06/18 11:49 Results ESR [SEDIMENTATION RATE AUTO] [HEME] Stat Lab 12/06/18 11:49 Results LACTIC ACID [CHEM] Stat Lab 12/06/18 11:41 Ordered Sodium Chloride 0.9% [Normal Saline] 1,000 ml Med 12/06/18 11:41 Active IV ONETIME Sodium Chloride 0.9% [Saline Flush] Med 12/06/18 11:41 Active 10 ml FLUSH ASDIRECTED PRN Peripheral IV Insertion Adult [OM.PC] Routine Oth 12/06/18 11:41 Ordered Medication Orders Sodium Chloride (Normal Saline) 1,000 mls @ 999 mls/hr IV ONETIME ONE Stop: 12/06/18 12:41 Last Admin: 12/06/18 12:00 Dose: 999 mls/hr Sodium Chloride (Saline Flush) 10 ml FLUSH ASDIRECTED PRN PRN Reason: Keep Vein Open Labs: Laboratory Tests 12/06/18 12/06/18 Range/Units 11:49 11:49 WBC 6.9 (4.0-10.0) x10^3/uL RBC 4.55 (4.00-5.50) x10^6/uL Hgb 13.8 (12.0-16.0) g/dL Hct 40.6 (33.0-47.0) % MCV 89.2 (78.0-93.0) fL MCH 30.3 (26.0-32.0) pg MCHC 34.0 (32.0-36.0) g/dL RDW Coeff of Nydia 13.2 (10.0-15.0) % Plt Count 459 H D (130-400) x10^3/uL Neut % (Auto) 55.9 (50.0-80.0) % Lymph % (Auto) 33.4 (25.0-50.0) % [place] % (Auto) 7.6 (2.0-11.0) % Eos % (Auto) 2.5 (0.0-4.0) % Baso % (Auto) 0.6 (0.2-1.2) % Sodium 139 (136-145) mmol/L Potassium 4.0 (3.5-5.1) mmol/L Chloride 104 (98-107) mmol/L Carbon Dioxide 25 (21-32) mmol/L Anion Gap 14.0 (10-20) mmol/L BUN 6 L (7-18) mg/dL Creatinine 0.5 L (0.55-1.02) mg/dL Est Cr Clr Drug Dosing 145.61 mL/min Estimated GFR (MDRD) > 60 Glucose 101 (74-106) mg/dL Calcium 9.0 (8.5-10.1) mg/dL C-Reactive Protein 0.4 (<=0.9) mg/dL Meds: Medications Generic Name Dose Route Start Last Admin Trade Name Freq PRN Reason Stop Dose Admin Sodium Chloride 1,000 mls @ 999 mls/hr 12/06/18 11:41 12/06/18 12:00 Normal Saline IV 12/06/18 12:41 999 mls/hr ONETIME ONE Administration Sodium Chloride 10 ml 12/06/18 11:41 Saline Flush FLUSH ASDIRECTED PRN Keep Vein Open Discontinued Medications Generic Name Dose Route Start Last Admin Trade Name Freq PRN Reason Stop Dose Admin Famotidine 20 mg 12/06/18 11:42 12/06/18 12:05 Pepcid IVPUSH 12/06/18 11:43 20 mg ONETIME ONE Administration Ketorolac Tromethamine 30 mg 12/06/18 11:42 12/06/18 12:01 Toradol IVPUSH 12/06/18 11:43 30 mg ONETIME ONE Administration Methylprednisolone Sodium Succinate 125 mg 12/06/18 11:42 12/06/18 12:02 Solu-Medrol IVPUSH 12/06/18 11:43 125 mg ONETIME ONE Administration Ondansetron HCl 4 mg 12/06/18 11:42 12/06/18 12:00 Zofran IVPUSH 12/06/18 11:43 4 mg ONETIME ONE Administration Departure - Departure Time of Disposition: 12:21 Disposition: Home, Self-Care 01 Condition: Good Clinical Impression: Cystic acne vulgaris, Facial swelling, Skin infection - Discharge Information *PRESCRIPTION DRUG MONITORING PROGRAM REVIEWED*: Not Applicable *COPY OF PRESCRIPTION DRUG MONITORING REPORT IN PATIENT ROBERTO: Not Applicable Prescriptions: Doxycycline [Vibramycin] 100 mg PO BID 21 Days #42 cap predniSONE 20 mg PO BID 5 Days #10 tab Instructions: Acne Forms: ED Department Discharge Additional Instructions: 1. Stay well hydrated and rest 2. Take medication for the full coarse, even if symptoms are better 3. Avoid any sunlight while on antibiotic 4. Do not use any creams, lotions, or gels to facial skin 5. Ice pack to face to help with pain and swelling 6. See your PCP as symptoms warrant - Problem List Review Problem List Initiated/Reviewed/Updated: Yes - My Orders Last 24 Hours: My Active Orders 12/06/18 11:41 LACTIC ACID [CHEM] Stat Sodium Chloride 0.9% [Normal Saline] 1,000 ml IV ONETIME Sodium Chloride 0.9% [Saline Flush] 10 ml FLUSH ASDIRECTED PRN Peripheral IV Insertion Adult [OM.PC] Routine 12/06/18 11:49 CBC WITH AUTO DIFF [HEME] Stat ESR [SEDIMENTATION RATE AUTO] [HEME] Stat - Assessment/Plan Last 24 Hours: My Active Orders 12/06/18 11:41 LACTIC ACID [CHEM] Stat Sodium Chloride 0.9% [Normal Saline] 1,000 ml IV ONETIME Sodium Chloride 0.9% [Saline Flush] 10 ml FLUSH ASDIRECTED PRN Peripheral IV Insertion Adult [OM.PC] Routine 12/06/18 11:49 CBC WITH AUTO DIFF [HEME] Stat ESR [SEDIMENTATION RATE AUTO] [HEME] Stat Assessment:: Acne Vulgaris flare Facial swelling Facial Pain Plan: Symptoms appear to be better after IV meds. Will start patient on oral Prednisone for the next 5 days. Also start Doxycyline BID for the next 3 weeks. Side effects discussed. Patient will follow up with PCP as symptoms warrant. Isotretinoin not appropriate, will defer to Derm or PCP.
[2018-12-06] MEDS ORDERED: Sodium Chloride 0.9% 1,000 ML IV ONE (11:41)
[2018-12-06] MEDS ORDERED: Sodium Chloride 0.9% 10 ML Syringe FLUSH PRN (11:41)
[2018-12-06] MEDS ORDERED: Famotidine 20 MG/2 ML SDV IVPUSH ONE (11:42)
[2018-12-06] MEDS ORDERED: methylPREDNISolone Sodium Succinate 125 MG/2 ML SDV IVPUSH ONE (11:42)
[2018-12-06] MEDS ORDERED: Ketorolac 30 MG/ML SDV IVPUSH ONE (11:42)
[2018-12-06] MEDS ORDERED: Ondansetron 4 MG/2 ML SDV IVPUSH ONE (11:42)
[2018-12-06 11:48] VITALS: BP 146/106
[2018-12-06 12:09] LABS: CHLORIDE,CL 104 mmol/L (98-107); SODIUM,NA 139 mmol/L (136-145)
[2018-12-06] MEDS ORDERED: Take Home: Doxycycline 100 MG Tab, 4 Tab Pack PO ONE (12:58)
[2018-12-06] MEDS ORDERED: Take Home: predniSONE 20 MG, 2 Tab Pack PO ONE (12:58)
== END 2018-12-06 13:20 | disposition home or self-care (01) ==
LOC: VM.ED 11:35
DX: L70.0 Acne vulgaris (principal); K21.9 Gastro-esophageal reflux disease without esophagitis; Z79.899 Other long term (current) drug therapy; Z91.09 Other allergy status, other than to drugs and biological substances; Z88.1 Allergy status to other antibiotic agents; Z88.5 Allergy status to narcotic agent; Z88.2 Allergy status to sulfonamides
CPT/HCPCS: 36415; 80048; 83605; 85025; 85652; 86140; 96361; 96374; 96375; 99283; A9270; J1885; J2405; J2930; J3490; J7030

== ENCOUNTER 2019-02-09 20:26 | Emergency (ER) | payer MEDICAID ==
[2019-02-09] MEDS ORDERED: Sodium Chloride 0.9% 10 ML Syringe FLUSH PRN (20:32)
[2019-02-09] MEDS ORDERED: diphenhydrAMINE 50 MG/ML SDV IVPUSH ONE (20:33)
[2019-02-09] MEDS ORDERED: Sodium Chloride 0.9% 1,000 ML IV ONE (20:33)
[2019-02-09] MEDS ORDERED: Ondansetron 4 MG/2 ML SDV IVPUSH ONE (20:33)
--- NOTE | 2019-02-09 21:33 | EDM.PDOC ---
ED HPI GENERAL MEDICAL PROBLEM - General Chief Complaint: Headache Stated Complaint: MIGRAINE Time Seen by Provider: 02/09/19 20:28 Source of Information: Reports: Patient, RN, RN Notes Reviewed History Limitations: Reports: No Limitations - History of Present Illness INITIAL COMMENTS - FREE TEXT/NARRATIVE: Patient presents to the ED at [facility] for the treatment of a migraine headache that started last evening. Patient states she took her usually dosing of Imitrex last night and it has not helped. She denies any known triggers for this episode. She has tried staying hydrated but she feels very nauseated. She vomited several times last evening. No ataxia. No unilateral weakness. Denies any SOB or chest pain. No focal neurological deficits. She states her vision is usually blurry during migraine episodes. She states her headache is worse sitting up. Lying down makes the headache somewhat better. Onset Date: 02/09/19 Left sided headache Pain Score (Numeric/FACES): 6 - Related Data Allergies Allergy/AdvReac Type Severity Reaction Status Date / Time adhesive Allergy Rash Verified 02/09/19 20:55 clindamycin Allergy Itching Verified 02/09/19 20:55 codeine Allergy Itching Verified 02/09/19 20:55 levofloxacin [From Levaquin] Allergy Rash Verified 02/09/19 20:55 sulfamethoxazole Allergy Rash Verified 02/09/19 20:55 [From Bactrim] trimethoprim [From Bactrim] Allergy Rash Verified 02/09/19 20:55 vancomycin Allergy Redness Verified 02/09/19 20:55 Home Meds: Home Meds Multivitamin [One Daily] 1 each PO DAILY 12/25/14 [History] Ibuprofen [Advil] 200 - 600 mg PO ASDIRECTED PRN 04/10/16 [History] Midodrine 7.5 mg PO TID 04/10/16 [History] SUMAtriptan Succinate [Imitrex] 100 mg PO ASDIRECTED PRN 04/10/16 [History] Ondansetron [Zofran ODT] 4 mg PO Q6H PRN 10/15/16 [History] Propranolol [Inderal LA] 80 mg PO DAILY 10/15/16 [History] Naproxen [Naprosyn] 1 tab PO BID PRN 12/23/16 [History] Pantoprazole Sodium [Protonix] 40 mg PO DAILY 04/29/17 [History] Promethazine [Phenergan] 12.5 mg QID PRN 04/29/17 [History] Cephalexin [Keflex] 500 mg PO Q6HR #28 cap 08/13/17 [Rx] Metoprolol Tartrate 50 mg PO BID 08/13/17 [History] Ondansetron [Zofran ODT] 4 mg PO Q8H #10 tab.dis 08/13/17 [Rx] Phenazopyridine HCl [Pyridium] 200 mg PO BID PRN #6 tablet 08/13/17 [Rx] Azithromycin [IJP: Azithromycin] 250 mg PO DAILY 6 Days #6 tab 09/23/17 [Rx] Doxycycline [Vibramycin] 100 mg PO BID 21 Days #42 cap 12/06/18 [Rx] predniSONE 20 mg PO BID 5 Days #10 tab 12/06/18 [Rx] Past Medical History - Past Health History Medical/Surgical History: Denies Medical/Surgical History HEENT History: Reports: Head Cardiovascular History: Reports: Other (See Below) Other Cardiovascular History: sinus tachycardia, POTS Gastrointestinal History: Reports: GERD, Inflammatory Bowel Disease Genitourinary History: Reports: Renal Calculus Other Genitourinary History: gross hematuria 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 Sees neurology in [place]; unsure if they are true seizures or not. Other Endocrine/Metabolic History: borderline abn.thyroid lab Dermatologic History: Reports: Other (See Below) Other Dermatologic History: acne - Infectious Disease History Infectious Disease History: Reports: Chicken Pox, MRSA Other Infectious Disease History: Recent history of MRSA on her face. - Past Surgical History HEENT Surgical History: Reports: Adenoidectomy, Tonsillectomy Social & Family History - Family History Family Medical History: Noncontributory Other Family History: mother has kidney problems Oncologic: Reports: Bladder Other Oncologic Family History: grandma - Caffeine Use Caffeine Use: Reports: Coffee, Soda ED ROS GENERAL - Review of Systems Review Of Systems: See Below Constitutional: Denies: Fever, Chills Respiratory: Denies: Shortness of Breath, Cough Cardiovascular: Denies: Chest Pain, Palpitations GI/Abdominal: Reports: Nausea, Vomiting. Denies: Abdominal Pain, Diarrhea Skin: Reports: No Symptoms Neurological: Reports: Headache. Denies: Confusion, Dizziness - Physical Exam Exam: See Below Exam Limited By: No Limitations General Appearance: Alert, No Apparent Distress Eye Exam: Bilateral Eye: EOMI, Normal Inspection, PERRL Head Exam: Atraumatic, Normocephalic Neck: Supple Respiratory/Chest: No Respiratory Distress, Lungs Clear, Normal Breath Sounds Cardiovascular: Normal Peripheral Pulses, Regular Rate, Rhythm GI/Abdominal: Normal Bowel Sounds, Soft, Non-Tender Neuro Exam (Abbreviated): Alert, Oriented, Normal Cognition, No Motor/Sensory Deficits Skin Exam: Warm, Dry, Intact, Normal Color Course - Vital Signs Last Recorded V/S: Last Vital Signs Temp 98.3 F 02/09/19 20:30 Pulse 97 02/09/19 20:30 Resp 16 02/09/19 20:30 BP 152/92 H 02/09/19 20:30 Pulse Ox 100 02/09/19 20:30 - Orders/Labs/Meds Orders: Active Orders 24 hr Category Date Time Status Sodium Chloride 0.9% [Saline Flush] Med 02/09/19 20:32 Active 10 ml FLUSH ASDIRECTED PRN Peripheral IV Insertion Adult [OM.PC] Routine Oth 02/09/19 20:32 Ordered Medication Orders Sodium Chloride (Saline Flush) 10 ml FLUSH ASDIRECTED PRN PRN Reason: Keep Vein Open Meds: Medications Generic Name Dose Route Start Last Admin Trade Name Freq PRN Reason Stop Dose Admin Sodium Chloride 10 ml 02/09/19 20:32 Saline Flush FLUSH ASDIRECTED PRN Keep Vein Open Discontinued Medications Generic Name Dose Route Start Last Admin Trade Name Freq PRN Reason Stop Dose Admin Diphenhydramine HCl 50 mg 02/09/19 20:33 02/09/19 21:04 Benadryl IVPUSH 02/09/19 20:34 50 mg ONETIME ONE Administration Sodium Chloride 1,000 mls @ 999 mls/hr 02/09/19 20:33 02/09/19 20:50 Normal Saline IV 02/09/19 21:33 999 mls/hr ONETIME ONE Administration Chlorpromazine HCl 50 mg/ 102 mls @ 100 mls/hr 02/09/19 20:33 Sodium Chloride IV 02/09/19 21:34 ONETIME ONE Chlorpromazine HCl 50 mg/ 102 mls @ 100 mls/hr 02/09/19 20:56 02/09/19 21:06 Sodium Chloride IV 02/09/19 21:57 100 mls/hr ONETIME ONE Administration Ondansetron HCl 4 mg 02/09/19 20:33 02/09/19 21:02 Zofran IVPUSH 02/09/19 20:34 4 mg ONETIME ONE Administration - Re-Assessments/Exams Free Text/Narrative Re-Assessment/Exam: 02/09/19 22:02 Patient re-examined. Assessment unchanged. Patient states her headache has completely resolved. She denies any nausea. No complaints. Patient requesting to be discharged. Departure - Departure Time of Disposition: 22:04 Disposition: Home, Self-Care 01 Condition: Good Clinical Impression: Headache Qualifiers: Headache type: unspecified Headache chronicity pattern: acute headache Intractability: not intractable Qualified Code(s): R51 - Headache - Discharge Information *PRESCRIPTION DRUG MONITORING PROGRAM REVIEWED*: Not Applicable *COPY OF PRESCRIPTION DRUG MONITORING REPORT IN PATIENT ROBERTO: Not Applicable Instructions: Migraine Headache, [id number] Referrals: Elle Rajput MD [Primary Care Provider] - Forms: ED Department Discharge Additional Instructions: 1. Stay well hydrated and rest 2. Continue with same medications at home 3. See your PCP as symptoms warrant - Problem List Review Problem List Initiated/Reviewed/Updated: Yes - My Orders Last 24 Hours: My Active Orders 02/09/19 20:32 Sodium Chloride 0.9% [Saline Flush] 10 ml FLUSH ASDIRECTED PRN Peripheral IV Insertion Adult [OM.PC] Routine - Assessment/Plan Last 24 Hours: My Active Orders 02/09/19 20:32 Sodium Chloride 0.9% [Saline Flush] 10 ml FLUSH ASDIRECTED PRN Peripheral IV Insertion Adult [OM.PC] Routine Assessment:: Headache Plan: Imaging studies and labs not medically necessary. Assessment findings discussed and treatment plan started. Patient had complete resolution of headache after Zofran, Thorazine, and Benadryl. Patient stable for discharge.
[2019-02-09 22:18] VITALS: BP 132/88
== END 2019-02-09 22:15 | disposition home or self-care (01) ==
LOC: VM.ED 20:26
DX: R51 Headache (principal); K21.9 Gastro-esophageal reflux disease without esophagitis; Z79.899 Other long term (current) drug therapy; Z91.09 Other allergy status, other than to drugs and biological substances; Z88.1 Allergy status to other antibiotic agents; Z88.2 Allergy status to sulfonamides; Z88.5 Allergy status to narcotic agent; Z88.8 Allergy status to other drugs, medicaments and biological substances
CPT/HCPCS: 96365; 96375; 99283-25; J1200; J2405; J3230; J7030; J7050

== ENCOUNTER 2019-05-15 20:08 | Emergency (ER) | payer MEDICAID ==
[2019-05-15] MEDS ORDERED: Sodium Chloride 0.9% 10 ML Syringe FLUSH PRN (20:20)
[2019-05-15] MEDS ORDERED: Ketorolac 15 MG/ML SDV IVPUSH ONE (20:26)
[2019-05-15] MEDS ORDERED: Iopamidol 612 MG/ML 100 ML Bottle IVPUSH ONE (20:27)
--- NOTE | 2019-05-15 20:27 | EDM.PDOC ---
ED HPI GENERAL MEDICAL PROBLEM - General Chief Complaint: Abdominal Pain Stated Complaint: ABDOMINAL PAIN Time Seen by Provider: 05/15/19 20:08 Source of Information: Reports: Patient History Limitations: Reports: No Limitations - History of Present Illness INITIAL COMMENTS - FREE TEXT/NARRATIVE: Patient comes into the emergency department with complaint of severe abdominal discomfort. Patient states it started earlier this afternoon. She did have a complete hysterectomy complete approximate 4 weeks ago and feels that it was healing fairly well. She was actually released to work on light duty last week and felt things available very well until today. She states after she was at work she felt a sharp shooting discomfort in the lower abdominal cavity like a tearing sensation. It did not last long initially however, later this afternoon the pain came back and has been intense ever since. She ended up calling [facility] nurse on-call who stated she should present to the emergency department for the evaluation. Patient states that the pain is worse up walking around. She describes as a sharp shooting sensation. She also states that she is nauseated she has not vomited. She denies any fever, lower extremity swelling, constipation or diarrhea, or chest discomfort. She has had some hesitation with urination the last couple days but denies any burning or frequency. Patient denies any other complaints or concerns. 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 - Related Data Allergies Allergy/AdvReac Type Severity Reaction Status Date / Time adhesive Allergy Rash Verified 02/09/19 20:55 clindamycin Allergy Itching Verified 02/09/19 20:55 codeine Allergy Itching Verified 02/09/19 20:55 levofloxacin [From Levaquin] Allergy Rash Verified 02/09/19 20:55 sulfamethoxazole Allergy Rash Verified 02/09/19 20:55 [From Bactrim] trimethoprim [From Bactrim] Allergy Rash Verified 02/09/19 20:55 vancomycin Allergy Redness Verified 02/09/19 20:55 Home Meds: Home Meds Multivitamin [One Daily] 1 each PO DAILY 12/25/14 [History] Ibuprofen [Advil] 200 - 600 mg PO ASDIRECTED PRN 08/23/16 [History] Midodrine 7.5 mg PO TID 04/10/16 [History] SUMAtriptan Succinate [Imitrex] 100 mg PO ASDIRECTED PRN 04/10/16 [History] Ondansetron [Zofran ODT] 4 mg PO Q6H PRN 10/15/16 [History] Propranolol [Inderal LA] 80 mg PO DAILY 10/15/16 [History] Naproxen [Naprosyn] 1 tab PO BID PRN 12/23/16 [History] Pantoprazole Sodium [Protonix] 40 mg PO DAILY 04/29/17 [History] Promethazine [Phenergan] 12.5 mg QID PRN 04/29/17 [History] Cephalexin [Keflex] 500 mg PO Q6HR #28 cap 08/13/17 [Rx] Metoprolol Tartrate 50 mg PO BID 08/13/17 [History] Ondansetron [Zofran ODT] 4 mg PO Q8H #10 tab.dis 08/13/17 [Rx] Phenazopyridine HCl [Pyridium] 200 mg PO BID PRN #6 tablet 08/13/17 [Rx] Azithromycin [IJP: Azithromycin] 250 mg PO DAILY 6 Days #6 tab 09/23/17 [Rx] Doxycycline [Vibramycin] 100 mg PO BID 21 Days #42 cap 12/06/18 [Rx] predniSONE 20 mg PO BID 5 Days #10 tab 12/06/18 [Rx] Past Medical History - Past Health History Medical/Surgical History: Denies Medical/Surgical History HEENT History: Reports: Head Cardiovascular History: Reports: Other (See Below) Other Cardiovascular History: sinus tachycardia, POTS Gastrointestinal History: Reports: GERD, Inflammatory Bowel Disease Genitourinary History: Reports: Renal Calculus Other Genitourinary History: gross hematuria 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 Sees neurology in [place]; unsure if they are true seizures or not. Other Endocrine/Metabolic History: borderline abn.thyroid lab Dermatologic History: Reports: Other (See Below) Other Dermatologic History: acne - Infectious Disease History Infectious Disease History: Reports: Chicken Pox, MRSA Other Infectious Disease History: Recent history of MRSA on her face. - Past Surgical History HEENT Surgical History: Reports: Adenoidectomy, Tonsillectomy Social & Family History - Family History Family Medical History: Noncontributory Other Family History: mother has kidney problems Oncologic: Reports: Bladder Other Oncologic Family History: grandma - Caffeine Use Caffeine Use: Reports: Coffee, Soda ED ROS GENERAL - Review of Systems Review Of Systems: ROS reveals no pertinent complaints other than HPI. Constitutional: Reports: Decreased Appetite. Denies: Fever, Chills, Malaise, Weakness, Fatigue, Night Sweats, Diaphoresis HEENT: Reports: No Symptoms Respiratory: Reports: No Symptoms Cardiovascular: Reports: No Symptoms Endocrine: Reports: No Symptoms GI/Abdominal: Reports: Abdominal Pain, Distension, Nausea. Denies: Black Stool , Difficulty Swallowing, Hematochezia, Melena, Stool Incontinence, Vomiting : Reports: Discharge, Urinary Retention. Denies: Dysuria, Flank Pain, Frequency, Hematuria, Incontinence, Irregular Menses, Pain, Urgency Musculoskeletal: Reports: No Symptoms Skin: Reports: No Symptoms Neurological: Reports: No Symptoms Psychiatric: Reports: No Symptoms Hematologic/Lymphatic: Reports: No Symptoms ED EXAM, GI/ABD - Physical Exam Exam: See Below Exam Limited By: No Limitations General Appearance: Alert, WD/WN, No Apparent Distress Head: Atraumatic, Normocephalic Neck: Normal Inspection, Supple, Non-Tender, Full Range of Motion Respiratory/Chest: No Respiratory Distress, Lungs Clear, Normal Breath Sounds, No Accessory Muscle Use, Chest Non-Tender Cardiovascular: Normal Peripheral Pulses, Regular Rate, Rhythm, No Edema GI/Abdominal Exam: Distended, Tender Back Exam: Normal Inspection, Full Range of Motion Extremities: Normal Inspection, Normal Range of Motion, Non-Tender, No Pedal Edema, Normal Capillary Refill Neurological: Oriented, Normal Gait Psychiatric: Normal Affect, Normal Mood Skin Exam: Warm, Dry, Intact, Normal Color Course - Orders/Labs/Meds Orders: Active Orders 24 hr Category Date Time Status Abdomen Pelvis wo Cont [CT] Stat Exams 05/15/19 20:20 Ordered CBC WITH AUTO DIFF [HEME] Stat Lab 05/15/19 20:20 Ordered COMPREHENSIVE METABOLIC PN,CMP [CHEM] Stat Lab 05/15/19 20:20 Ordered UA RFX SHARON AND CULT IF INDIC [URIN] Stat Lab 05/15/19 20:21 Ordered Sodium Chloride 0.9% [Normal Saline] 1,000 ml Med 05/15/19 20:30 Ordered IV ASDIRECTED Sodium Chloride 0.9% [Saline Flush] Med 05/15/19 20:20 Ordered 10 ml FLUSH ASDIRECTED PRN Peripheral IV Insertion Adult [OM.PC] Stat Oth 05/15/19 20:20 Ordered Medication Orders Sodium Chloride (Saline Flush) 10 ml FLUSH ASDIRECTED PRN PRN Reason: Keep Vein Open Meds: Medications Generic Name Dose Route Start Last Admin Trade Name Freq PRN Reason Stop Dose Admin Sodium Chloride 10 ml 05/15/19 20:20 Saline Flush FLUSH ASDIRECTED PRN Keep Vein Open - Re-Assessments/Exams Free Text/Narrative Re-Assessment/Exam: 05/15/19 21:38 Pt is resting in the bed looking at her phone. Appears in no acute distress. AxO. Vitals signs normal. Pt states she is ready for discharge Departure - Departure Time of Disposition: 21:30 Disposition: Home, Self-Care 01 Condition: Good Clinical Impression: Constipation Qualifiers: Constipation type: unspecified constipation type Qualified Code(s): K59.00 - Constipation, unspecified - Discharge Information *PRESCRIPTION DRUG MONITORING PROGRAM REVIEWED*: Not Applicable *COPY OF PRESCRIPTION DRUG MONITORING REPORT IN PATIENT ROBERTO: Not Applicable Instructions: Constipation, Adult Referrals: Elle Rajput MD [Primary Care Provider] - Additional Instructions: 1. increase water intake 2. Use uavr-tar-liclgor MiraLAX or milk of magnesia to help with constipation 3. Can use heating pad to help with any cramping sensation in the abdomen 4. Can use [id number] Tylenol ibuprofen as necessary for pain and discomfort 5. Follow-up with primary care provider if not better or if symptoms worsen 6. Call with any questions or concerns - My Orders Last 24 Hours: My Active Orders 05/15/19 20:20 Abdomen Pelvis wo Cont [CT] Stat CBC WITH AUTO DIFF [HEME] Stat COMPREHENSIVE METABOLIC PN,CMP [CHEM] Stat Sodium Chloride 0.9% [Saline Flush] 10 ml FLUSH ASDIRECTED PRN Peripheral IV Insertion Adult [OM.PC] Stat 05/15/19 20:21 UA RFX SHARON AND CULT IF INDIC [URIN] Stat 05/15/19 20:30 Sodium Chloride 0.9% [Normal Saline] 1,000 ml IV ASDIRECTED - Assessment/Plan Last 24 Hours: My Active Orders 05/15/19 20:20 Abdomen Pelvis wo Cont [CT] Stat CBC WITH AUTO DIFF [HEME] Stat COMPREHENSIVE METABOLIC PN,CMP [CHEM] Stat Sodium Chloride 0.9% [Saline Flush] 10 ml FLUSH ASDIRECTED PRN Peripheral IV Insertion Adult [OM.PC] Stat 05/15/19 20:21 UA RFX SHARON AND CULT IF INDIC [URIN] Stat 05/15/19 20:30 Sodium Chloride 0.9% [Normal Saline] 1,000 ml IV ASDIRECTED Assessment:: 1. abdominal pain Plan: 1. Labs completed in the ER. Results reviewed with patient 2. CT completed in the ER. Results reviewed with patient 3. UA collected in the ER. Results reviewed with patient 4. IV initiated with IV fluids provided 5. Zofran and Toradol given in the ER for pain and nausea 6. No acute findings Pt given instructions on the use of Heat pads, ibuprofen and Tylenol, MiraLAX or milk of magnesia, and follow-up care. 7. All questions and concerns addressed prior to discharge
[2019-05-15] MEDS ORDERED: Sodium Chloride 0.9% 1,000 ML IV SCH (20:30)
[2019-05-15 21:03] LABS: CHLORIDE,CL 104 mmol/L (54-184); SODIUM,NA 139 mmol/L (69-191)
[2019-05-15 21:08] LABS: ANION GAP 15.5 mmol/L (10-20)
[2019-05-15 22:46] VITALS: BP 135/92; PULSE 113
--- NOTE | 2019-05-16 10:37 | CT ---
[id number] CT/CT Abdomen Pelvis WO IV EXAM: CT Abdomen Pelvis WO IV CLINICAL DATA: ABD PAIN POST HYSTERO COMPARISON STUDY: None. FINDINGS: Lung bases are clear. Liver, spleen, pancreas, adrenal glands, and kidneys are unremarkable. Gallbladder has been resected. Appendix has been resected. No bowel obstruction or inflammation. Uterus has been resected. No fluid collection or other complication at the surgical site. Right ovary measures 34 x 34 x 32 mm and contains numerous follicles and likely a dominant follicular cyst. IMPRESSION: Postsurgical change from hysterectomy. No evidence of postsurgical complication or other acute findings in the abdomen/pelvis. Other findings are described above. Jon Conner MD 05/16/19 1036 Thank you for allowing us to participate in the care of your patient.
== END 2019-05-15 21:44 | disposition home or self-care (01) ==
LOC: VM.ED 20:08
DX: K59.00 Constipation, unspecified (principal); K21.9 Gastro-esophageal reflux disease without esophagitis; G43.909 Migraine, unspecified, not intractable, without status migrainosus; Z90.710 Acquired absence of both cervix and uterus; Z91.048 Other nonmedicinal substance allergy status; Z88.1 Allergy status to other antibiotic agents; Z88.5 Allergy status to narcotic agent; Z88.2 Allergy status to sulfonamides; Z79.899 Other long term (current) drug therapy
CPT/HCPCS: 74176; 80053; 81003; 85025; 96361; 96374; 99284; J1885; J7030

== ENCOUNTER 2019-07-15 17:27 | Emergency (ER) | payer MEDICAID ==
[2019-07-15] MEDS ORDERED: Sodium Chloride 0.9% 10 ML Syringe FLUSH PRN (17:49)
[2019-07-15] MEDS: Ketorolac 15 MG/ML SDV IVPUSH ONE (18:00)
[2019-07-15] MEDS: Sodium Chloride 0.9% 1,000 ML IV ONE (18:00)
[2019-07-15] MEDS: Ondansetron 4 MG/2 ML SDV IVPUSH ONE (18:03)
[2019-07-15 18:23] LABS: ANION GAP 15.5 mmol/L (10-20); CHLORIDE,CL 102 mmol/L (98-107); SODIUM,NA 139 mmol/L (136-145)
[2019-07-15 18:36] VITALS: BP 140/90; PULSE 100
--- NOTE | 2019-07-15 19:03 | EDM.PDOC ---
ED HPI GENERAL MEDICAL PROBLEM - General Chief Complaint: Flank Pain Stated Complaint: ABDOMINAL PAIN Time Seen by Provider: 07/15/19 17:30 Source of Information: Reports: Patient History Limitations: Reports: No Limitations - History of Present Illness INITIAL COMMENTS - FREE TEXT/NARRATIVE: Pt. presents to ER with complaints of abdominal and low back pain. She states that she has been experiencing the discomfort for 2 days. She states that she has been having infrequent watery stools. Denies any fever or chills. She states that her urine output is decreased as well. Denies any hematuria. No urine discoloration. She states that the back pain is in the lower back area and denies any CVA tenderness. Pt. is nauseated. Denies any vomiting. Denies any chest pain or shortness of breath. Pt. has a hysterectomy on and was in the ER numerous times with abdominal pain. She underwent CT abdomen and pelvis on 05/15/19 which did not show any acute pathology. Pt. denies any melena, hematochezia or hematemesis. Onset Date: 07/13/19 Location: Reports: Abdomen, Back Quality: Reports: Ache Severity: Moderate Left Lower Flank Pain Score (Numeric/FACES): 7 - Related Data Allergies Allergy/AdvReac Type Severity Reaction Status Date / Time adhesive Allergy Rash Verified 07/15/19 17:39 clindamycin Allergy Itching Verified 07/15/19 17:39 codeine Allergy Itching Verified 07/15/19 17:39 levofloxacin [From Levaquin] Allergy Rash Verified 07/15/19 17:39 sulfamethoxazole Allergy Rash Verified 07/15/19 17:39 [From Bactrim] trimethoprim [From Bactrim] Allergy Rash Verified 07/15/19 17:39 vancomycin Allergy Anaphylactic Verified 07/15/19 17:39 Shock Home Meds: Home Meds Multivitamin [One Daily] 1 each PO DAILY 12/25/14 [History] Ibuprofen [Advil] 200 - 600 mg PO ASDIRECTED PRN 04/10/16 [History] SUMAtriptan Succinate [Imitrex] 100 mg PO ASDIRECTED PRN 04/10/16 [History] Ondansetron [Zofran ODT] 4 mg PO Q6H PRN 10/15/16 [History] Propranolol [Inderal LA] 80 mg PO DAILY 10/15/16 [History] Promethazine [Phenergan] 12.5 mg PO QID PRN 04/29/17 [History] Metoprolol Tartrate 100 mg PO BID 08/13/17 [History] Acetaminophen [Tylenol Extra Strength] 1,000 mg PO Q6HR PRN 05/15/19 [History] Ranitidine [Zantac] 150 mg PO BEDTIME 05/15/19 [History] Past Medical History - Past Health History Medical/Surgical History: Denies Medical/Surgical History HEENT History: Reports: Head Cardiovascular History: Reports: Other (See Below) Other Cardiovascular History: sinus tachycardia, POTS Gastrointestinal History: Reports: GERD, Inflammatory Bowel Disease Other Gastrointestinal History: Nausea and Vomiting. Chronic left sided abdominal pain Genitourinary History: Reports: Renal Calculus Other Genitourinary History: gross hematuria PATROL JUDGE History: Reports: Other PATROL JUDGE History: ovarian 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 Sees neurology in [place]; unsure if they are true seizures or not. Other Endocrine/Metabolic History: borderline abn.thyroid lab Dermatologic History: Reports: Other (See Below) Other Dermatologic History: acne - Infectious Disease History Infectious Disease History: Reports: Chicken Pox, MRSA Other Infectious Disease History: Recent history of MRSA on her face. - Past Surgical History HEENT Surgical History: Reports: Adenoidectomy, Tonsillectomy Female Surgical History: Reports: Hysterectomy Social & Family History - Family History Family Medical History: Noncontributory Other Family History: mother has kidney problems Oncologic: Reports: Bladder Other Oncologic Family History: grandma - Tobacco Use Smoking Status *Q: Never Smoker - Caffeine Use Caffeine Use: Reports: Coffee, Soda - Recreational Drug Use Recreational Drug Use: No ED ROS GENERAL - Review of Systems Review Of Systems: See Below Constitutional: Reports: No Symptoms. Denies: Fever, Chills, Malaise, Weakness , Fatigue, Night Sweats, Diaphoresis, Decreased Appetite, Weight Loss, Weight Gain HEENT: Reports: No Symptoms Respiratory: Reports: No Symptoms Cardiovascular: Reports: No Symptoms Endocrine: Reports: No Symptoms GI/Abdominal: Reports: Abdominal Pain, Diarrhea, Nausea. Denies: Black Stool, Bloody Stool, Hematemesis, Hematochezia, Melena, Vomiting : Reports: No Symptoms Musculoskeletal: Reports: No Symptoms Skin: Reports: No Symptoms Neurological: Reports: No Symptoms Psychiatric: Reports: No Symptoms Hematologic/Lymphatic: Reports: No Symptoms Immunologic: Reports: No Symptoms ED EXAM, GENERAL - Physical Exam Exam: See Below Exam Limited By: No Limitations General Appearance: Alert, WD/WN, No Apparent Distress Respiratory/Chest: No Respiratory Distress, Lungs Clear, Normal Breath Sounds, No Accessory Muscle Use, Chest Non-Tender Cardiovascular: Normal Peripheral Pulses, Regular Rate, Rhythm, No Edema, No Gallop, No JVD, No Murmur, No Rub Peripheral Pulses: 4+: Radial (R) GI/Abdominal: Normal Bowel Sounds, Soft, Tender (diffusely tender to L side of abdomen. No rebound. No guarding.). No: Distended, Guarding, Rigid, Rebound, Hepatomegaly, Splenomegaly (Female) Exam: Deferred Rectal (Female) Exam: Deferred Back Exam: Normal Inspection, Full Range of Motion Extremities: Normal Inspection, Normal Range of Motion, Non-Tender, No Pedal Edema, Normal Capillary Refill Neurological: Alert, Oriented, CN II-XII Intact, Normal Cognition, Normal Gait, Normal Reflexes, No Motor/Sensory Deficits Psychiatric: Normal Affect, Normal Mood Skin Exam: Warm, Dry, Intact, Normal Color, No Rash Lymphatic: No Adenopathy Course - Vital Signs Last Recorded V/S: Last Vital Signs Temp 36.6 C 07/15/19 17:30 Pulse 100 07/15/19 17:30 Resp 20 07/15/19 17:30 BP 140/90 07/15/19 17:30 Pulse Ox 100 07/15/19 17:30 - Orders/Labs/Meds Orders: Active Orders 24 hr Category Date Time Status Abdomen 2V AP Flat Upright [CR] Stat Exams 07/15/19 18:33 Ordered Sodium Chloride 0.9% [Saline Flush] Med 07/15/19 17:49 Active 10 ml FLUSH ASDIRECTED PRN Peripheral IV Insertion Adult [OM.PC] Routine Oth 07/15/19 17:50 Ordered Medication Orders Sodium Chloride (Saline Flush) 10 ml FLUSH ASDIRECTED PRN PRN Reason: Keep Vein Open Labs: Laboratory Tests 07/15/19 07/15/19 07/15/19 Range/Units 17:44 17:53 17:53 WBC 9.6 (4.0-10.0) x10^3/uL RBC 4.57 (4.00-5.50) x10^6/uL Hgb 13.6 (12.0-16.0) g/dL Hct 40.2 (33.0-47.0) % MCV 88.0 (78.0-93.0) fL MCH 29.8 (26.0-32.0) pg MCHC 33.8 (32.0-36.0) g/dL RDW Coeff of Nydia 13.9 (10.0-15.0) % Plt Count 391 (130-400) x10^3/uL Neut % (Auto) 56.3 (50.0-80.0) % Lymph % (Auto) 34.3 (25.0-50.0) % Mitchell % (Auto) 7.9 (2.0-11.0) % Eos % (Auto) 1.1 (0.0-4.0) % Baso % (Auto) 0.4 (0.2-1.2) % PT 9.9 L (10.0-12.8) SEC INR 0.9 L (2.0-3.5) Sodium (136-145) mmol/L Potassium (3.5-5.1) mmol/L Chloride (98-107) mmol/L Carbon Dioxide (21-32) mmol/L Anion Gap (10-20) mmol/L BUN (7-18) mg/dL Creatinine (0.55-1.02) mg/dL Est Cr Clr Drug Dosing Estimated GFR (MDRD) Glucose (74-106) mg/dL Calcium (8.5-10.1) mg/dL Corrected Calcium (8.5-10.1) mg/dL Phosphorus (2.6-4.7) mg/dL Magnesium (1.8-2.4) mg/dL Total Bilirubin (0.2-1.0) mg/dL AST (15-37) U/L ALT (14-59) U/L Alkaline Phosphatase (46-116) U/L C-Reactive Protein (<=0.9) mg/dL Total Protein (6.4-8.2) g/dL Albumin (3.4-5.0) g/dL Globulin Albumin/Globulin Ratio Urine Color Light yellow (YELLOW) Urine Appearance Clear (CLEAR) Urine pH 5.5 (5.0-8.0) Ur Specific [place] 1.010 Urine Protein Negative (NEGATIVE) mg/dL Urine Glucose (UA) Negative (NEGATIVE) mg/dL Urine Ketones Negative (NEGATIVE) mg/dL Urine Occult Blood Negative (NEGATIVE) Urine Nitrite Negative (NEGATIVE) Urine Bilirubin Negative (NEGATIVE) Urine Urobilinogen 0.2 (0.2) EU/dL Ur Leukocyte Esterase Negative (NEGATIVE) Urine RBC 0-5 (NOT SEEN) /HPF Urine WBC 0-5 (NOT SEEN) /HPF Ur Squamous Epith Cells Few H (NEGATIVE) /HPF Urine Bacteria Moderate H (NEGATIVE) /HPF Urine Mucus Few H (NEGATIVE) /LPF 07/15/19 Range/Units 17:53 WBC (4.0-10.0) x10^3/uL RBC (4.00-5.50) x10^6/uL Hgb (12.0-16.0) g/dL Hct (33.0-47.0) % MCV (78.0-93.0) fL MCH (26.0-32.0) pg MCHC (32.0-36.0) g/dL RDW Coeff of Nydia (10.0-15.0) % Plt Count (130-400) x10^3/uL Neut % (Auto) (50.0-80.0) % Lymph % (Auto) (25.0-50.0) % Mitchell % (Auto) (2.0-11.0) % Eos % (Auto) (0.0-4.0) % Baso % (Auto) (0.2-1.2) % PT (10.0-12.8) SEC INR (2.0-3.5) Sodium 139 (136-145) mmol/L Potassium 3.5 (3.5-5.1) mmol/L Chloride 102 (98-107) mmol/L Carbon Dioxide 25 (21-32) mmol/L Anion Gap 15.5 (10-20) mmol/L BUN 10 (7-18) mg/dL Creatinine 0.8 (0.55-1.02) mg/dL Est Cr Clr Drug Dosing TNP Estimated GFR (MDRD) > 60 Glucose 85 (74-106) mg/dL Calcium 8.9 (8.5-10.1) mg/dL Corrected Calcium 8.90 (8.5-10.1) mg/dL Phosphorus 3.3 (2.6-4.7) mg/dL Magnesium 2.2 (1.8-2.4) mg/dL Total Bilirubin 0.2 (0.2-1.0) mg/dL AST 17 (15-37) U/L ALT 24 (14-59) U/L Alkaline Phosphatase 83 (46-116) U/L C-Reactive Protein < 0.2 (<=0.9) mg/dL Total Protein 8.0 (6.4-8.2) g/dL Albumin 4.0 (3.4-5.0) g/dL Globulin 4.0 Albumin/Globulin Ratio 1.00 Urine Color (YELLOW) Urine Appearance (CLEAR) Urine pH (5.0-8.0) Ur Specific [place] Urine Protein (NEGATIVE) mg/dL Urine Glucose (UA) (NEGATIVE) mg/dL Urine Ketones (NEGATIVE) mg/dL Urine Occult Blood (NEGATIVE) Urine Nitrite (NEGATIVE) Urine Bilirubin (NEGATIVE) Urine Urobilinogen (0.2) EU/dL Ur Leukocyte Esterase (NEGATIVE) Urine RBC (NOT SEEN) /HPF Urine WBC (NOT SEEN) /HPF Ur Squamous Epith Cells (NEGATIVE) /HPF Urine Bacteria (NEGATIVE) /HPF Urine Mucus (NEGATIVE) /LPF Meds: Medications Generic Name Dose Route Start Last Admin Trade Name Freq PRN Reason Stop Dose Admin Sodium Chloride 10 ml 07/15/19 17:49 Saline Flush FLUSH ASDIRECTED PRN Keep Vein Open Discontinued Medications Generic Name Dose Route Start Last Admin Trade Name Freq PRN Reason Stop Dose Admin Sodium Chloride 1,000 mls @ 1,000 mls/hr 07/15/19 17:50 07/15/19 18:00 Normal Saline IV 07/15/19 18:49 1,000 mls/hr .BOLUS ONE Administration Ketorolac Tromethamine 15 mg 07/15/19 17:51 07/15/19 18:00 Toradol IVPUSH 07/15/19 17:52 15 mg ONETIME ONE Administration Ondansetron HCl 4 mg 07/15/19 17:50 07/15/19 18:03 Zofran IVPUSH 07/15/19 17:51 4 mg ONETIME ONE Administration - Radiology Interpretation Free Text/Narrative:: Appears to have a large amount of stool throughout entirety of colon. Departure - Departure Time of Disposition: 19:06 Disposition: Home, Self-Care 01 Clinical Impression: Constipation Qualifiers: Constipation type: unspecified constipation type Qualified Code(s): K59.00 - Constipation, unspecified - Discharge Information Instructions: Constipation, Adult Referrals: Elle Rajput MD [Primary Care Provider] - Forms: ED Department Discharge Additional Instructions: Home to rest. Increase intake of fluids. Miralax 17 gm once daily. Take this every day. Mag citrate 1/2 bottle to facilitate a large bowel movement. If you do no have a bowel movement, take the other half of bottle in 6 hours. Recheck in clinic in 7-10 days. - My Orders Last 24 Hours: My Active Orders 07/15/19 17:49 Sodium Chloride 0.9% [Saline Flush] 10 ml FLUSH ASDIRECTED PRN 07/15/19 17:50 Peripheral IV Insertion Adult [OM.PC] Routine 07/15/19 18:33 Abdomen 2V AP Flat Upright [CR] Stat - Assessment/Plan Last 24 Hours: My Active Orders 07/15/19 17:49 Sodium Chloride 0.9% [Saline Flush] 10 ml FLUSH ASDIRECTED PRN 07/15/19 17:50 Peripheral IV Insertion Adult [OM.PC] Routine 07/15/19 18:33 Abdomen 2V AP Flat Upright [CR] Stat Plan: Home to rest. Increase intake of fluids. Miralax 17 gm once daily. Take this every day. Mag citrate 1/2 bottle to facilitate a large bowel movement. If you do no have a bowel movement, take the other half of bottle in 6 hours. Recheck in clinic in 7-10 days.
--- NOTE | 2019-07-15 19:12 | CR ---
[id number] RAD/RAD Abd Flat and Upright 2V EXAM: ABDOMEN 3 VIEWS INDICATION: ABDOMINAL PAIN COMPARISON: May 15, 2019 DISCUSSION: Mildly prominent colonic stool volume from the cecum through the splenic flexure. No small bowel dilation, free air or pneumatosis. Cholecystectomy clips right upper quadrant. No pathologic calcifications or osseous lesions are seen. IMPRESSION: 1. Mildly prominent colonic stool volume. Isac Escamilla MD 07/15/19 [id number] Thank you for allowing us to participate in the care of your patient.
== END 2019-07-15 19:05 | disposition home or self-care (01) ==
LOC: VM.ED 17:27
DX: K59.00 Constipation, unspecified (principal); M54.5 Low back pain; R11.0 Nausea; Z88.1 Allergy status to other antibiotic agents; Z88.2 Allergy status to sulfonamides; Z88.5 Allergy status to narcotic agent; Z91.048 Other nonmedicinal substance allergy status
CPT/HCPCS: 74019; 80053; 81001; 83735; 84100; 85025; 85610; 86140; 96361; 96374; 96375; 99284; J1885; J2405; J7030

== ENCOUNTER 2019-08-12 17:45 | Emergency (ER) | payer SELFPAY ==
[2019-08-12 18:16] VITALS: BP 142/86; PULSE 122
--- NOTE | 2019-08-12 19:21 | CR ---
[id number] RAD/RAD Pelvis 1V W 2V Left Hip Exam: RAD Pelvis 1V W 2V Left Hip Clinical Data: PELVIC PAIN COMPARISON: CORRELATION IS MADE WITH THE CAT SCAN OF 2018 FINDINGS: There is no fracture or dislocation Metallic densities project against the sacrum not present on a KUB dated July 15, 2019 Likely these findings are outside the pelvis Clinical correlation needed to know if the patient has had recent surgery IMPRESSION: METALLIC DENSITIES PROJECTING AGAINST SACRUM FOR WHICH CORRELATION WITH EXACT SURGICAL HISTORY IS NEEDED NO OTHER ABNORMALITY Kadeem Montgomery MD 08/12/19 [id number] Thank you for allowing us to participate in the care of your patient.
[2019-08-12] MEDS ORDERED: Take Home: Acetaminophen/HYDROcodone 325-5 MG, 5 Tab Pack PO ONE (19:24)
[2019-08-12] MEDS ORDERED: Cyclobenzaprine 10 MG Tab PO ONE (19:27)
[2019-08-12] MEDS ORDERED: Ondansetron 4 MG Tab.DIS PO ONE (19:27)
--- NOTE | 2019-08-12 19:33 | EDM.PDOC ---
ED HPI GENERAL MEDICAL PROBLEM - General Chief Complaint: Lower Extremity Injury/Pain Stated Complaint: LEFT LEG DIFFERENT Time Seen by Provider: 08/12/19 17:48 Source of Information: Reports: Patient History Limitations: Reports: No Limitations - History of Present Illness INITIAL COMMENTS - FREE TEXT/NARRATIVE: Pain in pelvis and left hip Pain began after fall No other injury Left Hip Pain Score (Numeric/FACES): 8 - Related Data Allergies Allergy/AdvReac Type Severity Reaction Status Date / Time adhesive Allergy Rash Verified 08/12/19 18:11 clindamycin Allergy Itching Verified 08/12/19 18:11 codeine Allergy Itching Verified 08/12/19 18:11 levofloxacin [From Levaquin] Allergy Rash Verified 08/12/19 18:11 sulfamethoxazole Allergy Rash Verified 08/12/19 18:11 [From Bactrim] trimethoprim [From Bactrim] Allergy Rash Verified 08/12/19 18:11 vancomycin Allergy Anaphylactic Verified 08/12/19 18:11 Shock Home Meds: Home Meds Multivitamin [One Daily] 1 each PO DAILY 12/25/14 [History] Ibuprofen [Advil] 200 - 600 mg PO ASDIRECTED PRN 04/10/16 [History] SUMAtriptan Succinate [Imitrex] 100 mg PO ASDIRECTED PRN 04/10/16 [History] Ondansetron [Zofran ODT] 4 mg PO Q6H PRN 10/15/16 [History] Propranolol [Inderal LA] 80 mg PO DAILY 10/15/16 [History] Promethazine [Phenergan] 12.5 mg PO QID PRN 04/29/17 [History] Metoprolol Tartrate 100 mg PO BID 08/13/17 [History] Acetaminophen [Tylenol Extra Strength] 1,000 mg PO Q6HR PRN 05/15/19 [History] Ranitidine [Zantac] 150 mg PO BEDTIME 05/15/19 [History] Past Medical History - Past Health History Medical/Surgical History: Denies Medical/Surgical History HEENT History: Reports: Head Cardiovascular History: Reports: Other (See Below) Other Cardiovascular History: sinus tachycardia, POTS Gastrointestinal History: Reports: GERD, Inflammatory Bowel Disease Other Gastrointestinal History: Nausea and Vomiting. 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 Sees neurology in [place]; unsure if they are true seizures or not. Other Endocrine/Metabolic History: borderline abn.thyroid lab Dermatologic History: Reports: Other (See Below) Other Dermatologic History: acne - Infectious Disease History Infectious Disease History: Reports: Chicken Pox, MRSA Other Infectious Disease History: Recent history of MRSA on her face. - Past Surgical History HEENT Surgical History: Reports: Adenoidectomy, Tonsillectomy Female Surgical History: Reports: Hysterectomy Social & Family History - Family History Family Medical History: Noncontributory Other Family History: mother has kidney problems Oncologic: Reports: Bladder Other Oncologic Family History: grandma - Tobacco Use Smoking Status *Q: Current Some Day Smoker Years of Tobacco use: 15 Packs/Tins Daily: 0.2 - Caffeine Use Caffeine Use: Reports: Coffee, Soda Review of Systems - Review of Systems Review Of Systems: See Below Musculoskeletal: Reports: Joint Pain ED EXAM, GENERAL - Physical Exam Exam: See Below Exam Limited By: No Limitations Extremities: Limited Range of Motion, Other (Left hip and pelvis pain) Course - Vital Signs Last Recorded V/S: Last Vital Signs Temp 37.1 C 08/12/19 17:55 Pulse 122 H 08/12/19 17:55 Resp 18 08/12/19 17:55 BP 142/86 H 08/12/19 17:55 Pulse Ox 100 08/12/19 17:55 - Orders/Labs/Meds Orders: Active Orders 24 hr Category Date Time Status Cyclobenzaprine [Flexeril] Med 08/12/19 19:27 Once 10 mg PO ONETIME ONE Ondansetron [Zofran ODT] Med 08/12/19 19:27 Once 4 mg PO ONETIME ONE Medication Orders Cyclobenzaprine HCl (Flexeril) 10 mg PO ONETIME ONE Stop: 08/12/19 19:28 Ondansetron HCl (Zofran Odt) 4 mg PO ONETIME ONE Stop: 08/12/19 19:28 Meds: Medications Generic Name Dose Route Start Last Admin Trade Name Freq PRN Reason Stop Dose Admin Cyclobenzaprine HCl 10 mg 08/12/19 19:27 Flexeril PO 08/12/19 19:28 ONETIME ONE Ondansetron HCl 4 mg 08/12/19 19:27 Zofran Odt PO 08/12/19 19:28 ONETIME ONE Discontinued Medications Generic Name Dose Route Start Last Admin Trade Name Susi PRN Reason Stop Dose Admin Hydrocodone Bitart/Acetaminophen 1 packet 08/12/19 19:24 Take Home: Acetam/Hydrocodon 325-5 Mg, 5 Pack PO 08/12/19 19:25 ONETIME ONE Morphine Sulfate 4 mg 08/12/19 19:26 Morphine IM 08/12/19 19:27 ONETIME ONE - Re-Assessments/Exams Free Text/Narrative Re-Assessment/Exam: 08/12/19 19:32 Xray: No fracture Pt given Morphine 4 mg IM Zofran 4 mg ODT and Flexeril 10 mg in ER Pt given hydrocone 5 mg take home pack Departure - Departure Time of Disposition: 20:00 Disposition: Home, Self-Care 01 Clinical Impression: Hip pain, left - Discharge Information Instructions: Hip Pain Additional Instructions: Hydrocodone as needed for pain Follow up in clinic Sepsis Event Note - Evaluation Sepsis Screening Result: No Definite Risk - Focused Exam Vital Signs: Vital Signs Temp Pulse Resp BP Pulse Ox 08/12/19 17:55 37.1 C 122 H 18 142/86 H 100 Date Exam was Performed: 08/12/19 Time Exam was Performed: 19:28 - My Orders Last 24 Hours: My Active Orders 08/12/19 19:27 Cyclobenzaprine [Flexeril] 10 mg PO ONETIME ONE Ondansetron [Zofran ODT] 4 mg PO ONETIME ONE - Assessment/Plan Last 24 Hours: My Active Orders 08/12/19 19:27 Cyclobenzaprine [Flexeril] 10 mg PO ONETIME ONE Ondansetron [Zofran ODT] 4 mg PO ONETIME ONE
[2019-08-12] MEDS: Morphine 2 MG/ML Syringe IM ONE ×2 (19:38→19:49)
[2019-08-12] MEDS ORDERED: Morphine 4 MG/ML Syringe ONE (19:42)
== END 2019-08-12 19:47 | disposition home or self-care (01) ==
LOC: VM.ED 17:45
DX: M25.552 Pain in left hip (principal); K21.9 Gastro-esophageal reflux disease without esophagitis; F17.210 Nicotine dependence, cigarettes, uncomplicated; Z88.1 Allergy status to other antibiotic agents; Z91.048 Other nonmedicinal substance allergy status; Z88.5 Allergy status to narcotic agent; Z88.2 Allergy status to sulfonamides; Z88.8 Allergy status to other drugs, medicaments and biological substances; Z79.899 Other long term (current) drug therapy
CPT/HCPCS: 99284-25; 99284-GF; A9270-GY; J2270

== ENCOUNTER 2019-10-21 20:53 | Emergency (ER) | payer MEDICAID, OTHER ==
[2019-10-21 21:09] VITALS: BP 140/104; PULSE 97
[2019-10-21] MEDS ORDERED: diphenhydrAMINE 50 MG/ML SDV IM ONE (21:12)
[2019-10-21] MEDS ORDERED: Ketorolac 30 MG/ML SDV IM ONE (21:13)
[2019-10-21] MEDS ORDERED: Ondansetron 4 MG Tab.DIS PO ONE (21:14)
--- NOTE | 2019-10-22 09:58 | EDM.PDOC ---
ED HPI GENERAL MEDICAL PROBLEM - General Chief Complaint: Headache Stated Complaint: Migraine headache, n/v Time Seen by Provider: 10/21/19 21:05 Source of Information: Reports: Patient History Limitations: Reports: No Limitations - History of Present Illness INITIAL COMMENTS - FREE TEXT/NARRATIVE: Pt. presents to ER with complaints of migraine headache. She states that this is similar to migraines she has had in the past. Denies any trauma. She states that she has an aura, and complains of nausea and vomiting. Denies any chest pain or shortness of breath. She denies any speech or ambulation problems. No numbness/tingling in extremities. + photophobia. She states that she took imitrex but states that this did not help. Onset Date: 10/21/19 Location: Reports: Head, Generalized Treatments WASHING MACHINE MECHANIC: Reports: Other (see below) Other Treatments WASHING MACHINE MECHANIC: Imitrex x2 left sided headache Pain Score (Numeric/FACES): 5 - Related Data Allergies Allergy/AdvReac Type Severity Reaction Status Date / Time adhesive Allergy Rash Verified 10/21/19 21:09 clindamycin Allergy Itching Verified 10/21/19 21:09 codeine Allergy Itching Verified 10/21/19 21:09 levofloxacin [From Levaquin] Allergy Rash Verified 10/21/19 21:09 sulfamethoxazole Allergy Rash Verified 10/21/19 21:09 [From Bactrim] trimethoprim [From Bactrim] Allergy Rash Verified 10/21/19 21:09 vancomycin Allergy Anaphylactic Verified 10/21/19 21:09 Shock Home Meds: Home Meds Multivitamin [One Daily] 1 each PO DAILY 12/25/14 [History] Ibuprofen [Advil] 200 - 600 mg PO ASDIRECTED PRN 04/10/16 [History] SUMAtriptan Succinate [Imitrex] 100 mg PO ASDIRECTED PRN 04/10/16 [History] Ondansetron [Zofran ODT] 4 mg PO Q6H PRN 10/15/16 [History] Propranolol [Inderal LA] 80 mg PO DAILY 10/15/16 [History] Promethazine [Phenergan] 12.5 mg PO QID PRN 04/29/17 [History] Metoprolol Tartrate 100 mg PO BID 08/13/17 [History] Acetaminophen [Tylenol Extra Strength] 1,000 mg PO Q6HR PRN 05/15/19 [History] Ranitidine [Zantac] 150 mg PO BEDTIME 05/15/19 [History] Past Medical History - Past Health History Medical/Surgical History: Denies Medical/Surgical History HEENT History: Reports: Head Cardiovascular History: Reports: Other (See Below) Other Cardiovascular History: sinus tachycardia, POTS Gastrointestinal History: Reports: GERD, Inflammatory Bowel Disease Other Gastrointestinal History: Nausea and Vomiting. Chronic left sided abdominal pain Genitourinary History: Reports: Renal Calculus Other Genitourinary History: gross hematuria METHODS SPECIALIST ENGINEER History: Reports: Other METHODS SPECIALIST ENGINEER History: ovarian 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 Sees neurology in [place]; unsure if they are true seizures or not. Other Endocrine/Metabolic History: borderline abn.thyroid lab Dermatologic History: Reports: Other (See Below) Other Dermatologic History: acne - Infectious Disease History Infectious Disease History: Reports: Chicken Pox, MRSA Other Infectious Disease History: Recent history of MRSA on her face. - Past Surgical History HEENT Surgical History: Reports: Adenoidectomy, Tonsillectomy Female Surgical History: Reports: Hysterectomy Social & Family History - Family History Family Medical History: Noncontributory Other Family History: mother has kidney problems Oncologic: Reports: Bladder Other Oncologic Family History: grandma - Caffeine Use Caffeine Use: Reports: Coffee, Soda ED ROS GENERAL - Review of Systems Review Of Systems: See Below Constitutional: Reports: No Symptoms HEENT: Reports: No Symptoms Respiratory: Reports: No Symptoms Cardiovascular: Reports: No Symptoms Endocrine: Reports: No Symptoms GI/Abdominal: Reports: No Symptoms : Reports: No Symptoms Musculoskeletal: Reports: No Symptoms Skin: Reports: No Symptoms Neurological: Reports: Headache Psychiatric: Reports: No Symptoms Hematologic/Lymphatic: Reports: No Symptoms Immunologic: Reports: No Symptoms ED EXAM, GENERAL - Physical Exam Exam: See Below Exam Limited By: No Limitations General Appearance: Alert, WD/WN, No Apparent Distress Eye Exam: Bilateral Eye: EOMI, Normal Fundi, Normal Inspection, PERRL Nose: Normal Inspection, Normal Mucosa, No Blood Throat/Mouth: Normal Inspection, Normal Lips, Normal Teeth, Normal Gums, Normal Oropharynx, Normal Voice, No Airway Compromise Head: Atraumatic, Normocephalic Neck: Normal Inspection, Supple, Non-Tender, Full Range of Motion Respiratory/Chest: No Respiratory Distress, Lungs Clear, Normal Breath Sounds, No Accessory Muscle Use, Chest Non-Tender Cardiovascular: Normal Peripheral Pulses, Regular Rate, Rhythm, No Edema, No Gallop, No JVD, No Murmur, No Rub GI/Abdominal: Normal Bowel Sounds, Soft, Non-Tender, No Organomegaly, No Distention, No Mass (Female) Exam: Deferred Rectal (Female) Exam: Deferred Back Exam: Normal Inspection, Full Range of Motion Extremities: Normal Inspection, Normal Range of Motion, Non-Tender, No Pedal Edema, Normal Capillary Refill Neurological: Alert, Oriented, CN II-XII Intact, Normal Cognition, Normal Gait, Normal Reflexes, No Motor/Sensory Deficits Psychiatric: Normal Affect, Normal Mood Skin Exam: Warm, Dry, Intact, Normal Color, No Rash Course - Vital Signs Last Recorded V/S: Last Vital Signs Temp 36.9 C 10/21/19 20:53 Pulse 97 10/21/19 20:53 Resp 16 10/21/19 20:53 BP 140/104 H 10/21/19 20:53 Pulse Ox - Orders/Labs/Meds Meds: Medications Discontinued Medications Generic Name Dose Route Start Last Admin Trade Name Susi PRN Reason Stop Dose Admin Chlorpromazine HCl 50 mg 10/21/19 21:12 10/21/19 21:26 Thorazine IM 10/21/19 22:13 50 mg ONETIME ONE Administration Diphenhydramine HCl 50 mg 10/21/19 21:12 10/21/19 21:28 Benadryl IM 10/21/19 21:13 50 mg ONETIME ONE Administration Ketorolac Tromethamine 30 mg 10/21/19 21:13 10/21/19 21:28 Toradol IM 10/21/19 21:14 30 mg ONETIME ONE Administration Ondansetron HCl 4 mg 10/21/19 21:14 10/21/19 21:26 Zofran Odt PO 10/21/19 21:15 4 mg ONETIME ONE Administration Departure - Departure Time of Disposition: 00:15 Disposition: Home, Self-Care 01 Clinical Impression: Migraine - Discharge Information Instructions: Migraine Headache Referrals: Elle Rajput MD [Primary Care Provider] - Forms: ED Department Discharge Additional Instructions: Home to rest. Continue with current medications. Follow-up in clinic or return to ER if not gradually improving. Sepsis Event Note - Evaluation Sepsis Screening Result: No Definite Risk - Assessment/Plan Plan: Home to rest. Continue with current medications. Follow-up in clinic or return to ER if not gradually improving.
== END 2019-10-21 21:57 | disposition home or self-care (01) ==
LOC: VM.ED 20:53
DX: G43.909 Migraine, unspecified, not intractable, without status migrainosus (principal); Z88.5 Allergy status to narcotic agent; Z88.2 Allergy status to sulfonamides; Z88.1 Allergy status to other antibiotic agents; Z91.048 Other nonmedicinal substance allergy status; Z79.899 Other long term (current) drug therapy; Z90.49 Acquired absence of other specified parts of digestive tract
CPT/HCPCS: 96372; 99283; A9270; J1200; J1885; J3230

== ENCOUNTER 2020-03-10 18:27 | Emergency (ER) | payer MEDICAID ==
[2020-03-10] MEDS ORDERED: Sodium Chloride 0.9% 1,000 ML IV ONE (18:50)
[2020-03-10] MEDS ORDERED: Ketorolac 30 MG/ML SDV IVPUSH ONE (18:51)
[2020-03-10] MEDS ORDERED: diphenhydrAMINE 50 MG/ML SDV IVPUSH ONE (18:51)
[2020-03-10] MEDS ORDERED: Prochlorperazine 10 MG/2 ML SDV IV ONE (18:52)
--- NOTE | 2020-03-10 19:03 | EDM.PDOC ---
ED HPI GENERAL MEDICAL PROBLEM - General Chief Complaint: Headache Stated Complaint: MIGRAINE Time Seen by Provider: 03/10/20 18:45 Source of Information: Reports: Patient History Limitations: Reports: No Limitations - History of Present Illness INITIAL COMMENTS - FREE TEXT/NARRATIVE: Patient comes into the emergency department with complaints of a migraine. Patient was recently hospitalized for strokelike symptoms related to migraine. Patient was hospitalized for a couple days at [facility] in [place] with migraine relief. Once she was released she states that she had approximately 3 or 4 days of symptom free however the symptoms have slowly started again approximately 5 days ago to the point today that she is nauseated has light sensitivity feels like the floor is moving. She did call neurology today however they have not gotten back to her with any resolution. Patient states that she has been taking [id number] Zofran and Tylenol with no relief. She states that she is also nauseated and has been vomiting throughout the day. Denies any chest pain, shortness of breath, dizziness, lightheaded, double vision or blurred vision. Patient denies any other illnesses or injuries. Onset: Gradual Location: Reports: Head Quality: Reports: Dull, Throbbing Severity: Severe Improves with: Reports: None Worsens with: Reports: Other (lights), Movement Associated Symptoms: Reports: No Other Symptoms Treatments ENGAGEMENT QUALITY CONSULTANT: Reports: Acetaminophen, NSAIDS, Other Medication(s) Other Treatments ENGAGEMENT QUALITY CONSULTANT: imitrex, zofran, and prescribed medications Left Head Pain Score (Numeric/FACES): 7 - Related Data Allergies Allergy/AdvReac Type Severity Reaction Status Date / Time adhesive Allergy Rash Verified 10/21/19 21:09 clindamycin Allergy Itching Verified 10/21/19 21:09 codeine Allergy Itching Verified 10/21/19 21:09 levofloxacin [From Levaquin] Allergy Rash Verified 10/21/19 21:09 sulfamethoxazole Allergy Rash Verified 10/21/19 21:09 [From Bactrim] trimethoprim [From Bactrim] Allergy Rash Verified 10/21/19 21:09 vancomycin Allergy Anaphylactic Verified 10/21/19 21:09 Shock Home Meds: Home Meds Multivitamin [One Daily] 1 each PO DAILY 12/25/14 [History] Ibuprofen [Advil] 200 - 600 mg PO ASDIRECTED PRN 04/10/16 [History] SUMAtriptan succinate [Imitrex] 100 mg PO ASDIRECTED PRN 04/10/16 [History] Ondansetron [Zofran ODT] 4 mg PO Q6H PRN 10/15/16 [History] Propranolol [Inderal LA] 80 mg PO DAILY 10/15/16 [History] Promethazine [Phenergan] 12.5 mg PO QID PRN 04/29/17 [History] Metoprolol Tartrate 100 mg PO BID 08/13/17 [History] Acetaminophen [Tylenol Extra Strength] 1,000 mg PO Q6HR PRN 05/15/19 [History] Ranitidine [Zantac] 150 mg PO BEDTIME 05/15/19 [History] Past Medical History - Past Health History Medical/Surgical History: Denies Medical/Surgical History HEENT History: Reports: Head Cardiovascular History: Reports: Other (See Below) Other Cardiovascular History: sinus tachycardia, POTS Gastrointestinal History: Reports: GERD, Inflammatory Bowel Disease Other Gastrointestinal History: Nausea and Vomiting. Chronic left sided abdominal pain Genitourinary History: Reports: Renal Calculus Other Genitourinary History: gross hematuria SPECIAL SERVICES SUPERVISOR History: Reports: Other SPECIAL SERVICES SUPERVISOR History: ovarian 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 Sees neurology in [place]; unsure if they are true seizures or not. Other Endocrine/Metabolic History: borderline abn.thyroid lab Dermatologic History: Reports: Other (See Below) Other Dermatologic History: acne - Infectious Disease History Infectious Disease History: Reports: Chicken Pox, MRSA Other Infectious Disease History: Recent history of MRSA on her face. - Past Surgical History HEENT Surgical History: Reports: Adenoidectomy, Tonsillectomy Female Surgical History: Reports: Hysterectomy Social & Family History - Family History Family Medical History: Noncontributory Other Family History: mother has kidney problems Oncologic: Reports: Bladder Other Oncologic Family History: grandma - Caffeine Use Caffeine Use: Reports: Coffee, Soda ED ROS GENERAL - Review of Systems Review Of Systems: Comprehensive ROS is negative, except as noted in HPI. Constitutional: Reports: No Symptoms HEENT: Reports: No Symptoms Respiratory: Reports: No Symptoms Cardiovascular: Reports: No Symptoms Endocrine: Reports: No Symptoms GI/Abdominal: Reports: No Symptoms : Reports: No Symptoms Musculoskeletal: Reports: No Symptoms Skin: Reports: No Symptoms Neurological: Reports: Headache. Denies: Confusion, Numbness, Paresthesia, Pre- Existing Deficit, Seizure, Syncope, Tingling, Tremors, Trouble Speaking, Difficulty Walking, Weakness, Change in Speech, Gait Disturbance Psychiatric: Reports: No Symptoms Hematologic/Lymphatic: Reports: No Symptoms Immunologic: Reports: No Symptoms ED EXAM, GENERAL - Physical Exam Exam: See Below Exam Limited By: No Limitations General Appearance: Alert, WD/WN, No Apparent Distress Eye Exam: Bilateral Eye: EOMI, PERRL Head: Atraumatic, Normocephalic Neck: Normal Inspection, Supple, Non-Tender, Full Range of Motion Respiratory/Chest: No Respiratory Distress, Lungs Clear, Normal Breath Sounds, No Accessory Muscle Use, Chest Non-Tender Cardiovascular: Normal Peripheral Pulses, Regular Rate, Rhythm Back Exam: Normal Inspection, Full Range of Motion Extremities: Normal Inspection, Normal Range of Motion, Non-Tender, No Pedal Edema, Normal Capillary Refill Neurological: Alert, Oriented, Normal Gait. No: Inattentive, Confused, Disoriented, Slow to Respond, Memory Loss Remote Events, Memory Loss Recent Events, Abnormal Gait, Sensory/Motor Deficit Psychiatric: Normal Affect, Normal Mood Skin Exam: Warm, Dry, Intact, Normal Color Course - Vital Signs Last Recorded V/S: Last Vital Signs Temp 36.3 C 03/10/20 18:30 Pulse 96 03/10/20 18:30 Resp 18 03/10/20 18:30 BP 135/89 03/10/20 18:30 Pulse Ox 96 03/10/20 18:30 - Orders/Labs/Meds Orders: Active Orders 24 hr Category Date Time Status Sodium Chloride 0.9% [Normal Saline] 1,000 ml Med 03/10/20 18:50 Ordered IV ONETIME Medication Orders Sodium Chloride (Normal Saline) 1,000 mls @ 1,000 mls/hr IV ONETIME ONE Stop: 03/10/20 19:49 Meds: Medications Generic Name Dose Route Start Last Admin Trade Name Freq PRN Reason Stop Dose Admin Sodium Chloride 1,000 mls @ 1,000 mls/hr 03/10/20 18:50 Normal Saline IV 03/10/20 19:49 ONETIME ONE Discontinued Medications Generic Name Dose Route Start Last Admin Trade Name Freq PRN Reason Stop Dose Admin Diphenhydramine HCl 50 mg 03/10/20 18:51 Benadryl IVPUSH 03/10/20 18:52 ONETIME ONE Ketorolac Tromethamine 30 mg 03/10/20 18:51 Toradol IVPUSH 03/10/20 18:52 ONETIME ONE Prochlorperazine Edisylate 10 mg 03/10/20 18:52 Compazine IV 03/10/20 18:53 ONETIME ONE - Re-Assessments/Exams Free Text/Narrative Re-Assessment/Exam: 03/10/20 19:47 Patient states she feels much better and feels she can be discharged to home to rest. Assessment negative. Vomiting/nausea relieved, AxO, aura is gone and floor is not longer spinning/moving. Departure - Departure Time of Disposition: 20:00 Disposition: Home, Self-Care 01 Condition: Good Clinical Impression: Migraine Qualifiers: Migraine type: with aura Status migrainosus presence: without status migrainosus Intractability: not intractable Qualified Code(s): G43.109 - Migraine with aura, not intractable, without status migrainosus - Discharge Information *PRESCRIPTION DRUG MONITORING PROGRAM REVIEWED*: Not Applicable *COPY OF PRESCRIPTION DRUG MONITORING REPORT IN PATIENT ROBERTO: Not Applicable Instructions: Migraine Headache, Pain Medicine Instructions, [id number] Referrals: Elle Rajput MD [Primary Care Provider] - Additional Instructions: 1. rest 2. increase your water intake 3. Continue all at home medications 4. Activity and diet as tolerated 5. Can take over the counter Tylenol or ibuprofen for any pain or discomfort 6. Follow up with PCP if symptoms continue, return, or progress 7. Call with any questions or concerns Sepsis Event Note (ED) - Evaluation Sepsis Screening Result: No Definite Risk - Focused Exam Vital Signs: Vital Signs Temp Pulse Resp BP Pulse Ox 03/10/20 18:30 36.3 C 96 18 135/89 96 - My Orders Last 24 Hours: My Active Orders 03/10/20 18:50 Sodium Chloride 0.9% [Normal Saline] 1,000 ml IV ONETIME - Assessment/Plan Last 24 Hours: My Active Orders 03/10/20 18:50 Sodium Chloride 0.9% [Normal Saline] 1,000 ml IV ONETIME Assessment:: 1. acute on chronic migraine Plan: 1. Ice Applied to the the back of the neck 2. IV started in ER 3. Ketorolac 30mg IV given in ER 4. 1 L NS given 5. Benadryl 50mg IV given 6. Compazine 10mg IV given 7. Education regarding splinting, activity, [id number] medications, and follow-up care provided. 8. All questions and concerns addressed with the patient prior to discharge
[2020-03-10 19:44] VITALS: BP 135/89; PULSE 96
== END 2020-03-10 20:10 | disposition home or self-care (01) ==
LOC: VM.ED 18:27
DX: G43.109 Migraine with aura, not intractable, without status migrainosus (principal); K21.9 Gastro-esophageal reflux disease without esophagitis; R11.2 Nausea with vomiting, unspecified; Z88.2 Allergy status to sulfonamides; Z88.1 Allergy status to other antibiotic agents; Z88.5 Allergy status to narcotic agent; Z91.09 Other allergy status, other than to drugs and biological substances; Z79.899 Other long term (current) drug therapy
CPT/HCPCS: 96361; 96374; 96375; 99283; J0780; J1200; J1885; J7030; 99284-GF

== ENCOUNTER 2020-04-26 17:03 | Emergency (ER) | payer MEDICAID ==
[2020-04-26 17:02] VITALS: BP 141/95; PULSE 94
--- NOTE | 2020-04-26 19:54 | CR ---
[id number] RAD/RAD Ankle Right 3V Min Exam: RAD Ankle Right 3V Min Indication:FELL, ANKLE PAIN Comparison: No prior imaging for comparison. Discussion: Soft tissue swelling along the lateral malleolus. No evidence of an acute fracture or dislocation. Joint spaces are well-preserved. Bone mineralization is normal. Impression: As above. Jon Conner MD 04/26/20 1953 Thank you for allowing us to participate in the care of your patient.
--- NOTE | 2020-04-27 06:19 | EDM.PDOC ---
ED HPI GENERAL MEDICAL PROBLEM - General Chief Complaint: Lower Extremity Injury/Pain Stated Complaint: ER Time Seen by Provider: 04/26/20 17:03 Source of Information: Reports: Patient History Limitations: Reports: No Limitations - History of Present Illness INITIAL COMMENTS - FREE TEXT/NARRATIVE: Pt. presents to ER with complaints of R ankle pain. Pt. states that she fell down the stairs on Saturday. She states that she has a history of POTS which causes her to fall often. Denied any chest pain or shortness of breath prior to/during the fall or since the fall and has not had any symptoms since. Pt. complains of pain to the R lateral aspect of the ankle. She has increased discomfort with weight bearing and movement of the joint. Denies numbness/tingling in distal portion of the extremity. Onset Date: 04/23/20 Location: Reports: Lower Extremity, Right Quality: Reports: Ache, Throbbing Severity: Moderate Treatments OCCUPATIONAL THERAPIST ASSISTANT: Reports: Cold Therapy, Other (see below) Other Treatments OCCUPATIONAL THERAPIST ASSISTANT: elevation right ankle Pain Score (Numeric/FACES): 6 - Related Data Allergies Allergy/AdvReac Type Severity Reaction Status Date / Time vancomycin Allergy Severe Anaphylactic Verified 04/26/20 16:58 Shock adhesive Allergy Rash Verified 04/26/20 16:58 clindamycin Allergy Itching Verified 04/26/20 16:58 codeine Allergy Itching Verified 04/26/20 16:58 levofloxacin [From Levaquin] Allergy Rash Verified 04/26/20 16:58 sulfamethoxazole Allergy Rash Verified 04/26/20 16:58 [From Bactrim] trimethoprim [From Bactrim] Allergy Rash Verified 04/26/20 16:58 Home Meds: Home Meds Multivitamin [One Daily] 1 each PO DAILY 12/25/14 [History] SUMAtriptan succinate [Imitrex] 100 mg PO ASDIRECTED PRN 04/10/16 [History] Ondansetron [Zofran ODT] 4 mg PO Q6H PRN 10/15/16 [History] Propranolol [Inderal LA] 80 mg PO DAILY 10/15/16 [History] Metoprolol Tartrate 100 mg PO BID 08/13/17 [History] Acetaminophen [Tylenol Extra Strength] 1,000 mg PO Q6HR PRN 05/15/19 [History] Ranitidine [Zantac] 150 mg PO BEDTIME 05/15/19 [History] Gabapentin [Neurontin] 200 mg PO TID 03/22/20 [History] Past Medical History - Past Health History Medical/Surgical History: Denies Medical/Surgical History HEENT History: Reports: Head Cardiovascular History: Reports: Other (See Below) Other Cardiovascular History: sinus tachycardia, POTS Gastrointestinal History: Reports: GERD, Inflammatory Bowel Disease Other Gastrointestinal History: Nausea and Vomiting. Chronic left sided abdominal pain Genitourinary History: Reports: Renal Calculus Other Genitourinary History: gross hematuria ACCOUNTS SUPERVISOR History: Reports: Other ACCOUNTS SUPERVISOR History: ovarian 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 Sees neurology in [place]; unsure if they are true seizures or not. Other Endocrine/Metabolic History: borderline abn.thyroid lab Dermatologic History: Reports: Other (See Below) Other Dermatologic History: acne - Infectious Disease History Infectious Disease History: Reports: Chicken Pox, MRSA Other Infectious Disease History: Recent history of MRSA on her face. - Past Surgical History HEENT Surgical History: Reports: Adenoidectomy, Tonsillectomy Female Surgical History: Reports: Hysterectomy Social & Family History - Family History Family Medical History: Noncontributory Other Family History: mother has kidney problems Oncologic: Reports: Bladder Other Oncologic Family History: grandma - Tobacco Use Smoking Status *Q: Former Smoker Used Tobacco, but Quit: Yes Month/Year Tobacco Last Used: 2019 - Caffeine Use Caffeine Use: Reports: Coffee, Soda Review of Systems - Review of Systems Review Of Systems: See Below Constitutional: Reports: No Symptoms Eyes: Reports: No Symptoms Ears: Reports: No Symptoms Nose: Reports: No Symptoms Mouth/Throat: Reports: No Symptoms Respiratory: Reports: No Symptoms Cardiovascular: Reports: No Symptoms GI/Abdominal: Reports: No Symptoms Genitourinary: Reports: No Symptoms Musculoskeletal: Reports: Leg Pain, Joint Pain Skin: Reports: No Symptoms Neurological: Reports: No Symptoms Psychiatric: Reports: No Symptoms ED EXAM, GENERAL - Physical Exam Exam: See Below Exam Limited By: No Limitations General Appearance: Alert, WD/WN, No Apparent Distress Extremities: Other (mild edema to R ankle. No crepitus. Increased pain with dorsiflexion and lateral rotation. CMS intact.) Course - Vital Signs Last Recorded V/S: Last Vital Signs Temp 37.1 C 04/26/20 16:59 Pulse 94 04/26/20 16:59 Resp 16 04/26/20 16:59 BP 141/95 H 04/26/20 16:59 Pulse Ox 99 04/26/20 16:59 - Radiology Interpretation Free Text/Narrative:: No fracture noted on 3 view R ankle radiographs Departure - Departure Time of Disposition: 20:05 Disposition: Home, Self-Care 01 Clinical Impression: Ankle sprain - Discharge Information Instructions: Ankle Sprain With Phase I Rehab-SportsMed Referrals: Elle Rajput MD [Primary Care Provider] - Forms: ED Department Discharge Additional Instructions: Elevate and ice ankle as much as possible. MARY wrap will help with compression. I included some exercises to try as you feel able to help with rehabilitation. Recheck in clinic in 7-10 days if not gradually improving. Sepsis Event Note (ED) - Evaluation Sepsis Screening Result: No Definite Risk - Problem List Review Problem List Initiated/Reviewed/Updated: Yes - Assessment/Plan Plan: Elevate and ice ankle as much as possible. MARY wrap will help with compression. I included some exercises to try as you feel able to help with rehabilitation. Recheck in clinic in 7-10 days if not gradually improving.
== END 2020-04-26 20:05 | disposition home or self-care (01) ==
LOC: VM.ED 17:03
DX: S93.401A Sprain of unspecified ligament of right ankle, initial encounter (principal); Z87.891 Personal history of nicotine dependence; Z88.1 Allergy status to other antibiotic agents; Z91.048 Other nonmedicinal substance allergy status; Z88.5 Allergy status to narcotic agent; Z88.8 Allergy status to other drugs, medicaments and biological substances; Z88.2 Allergy status to sulfonamides; W10.9XXA Fall (on) (from) unspecified stairs and steps, initial encounter
CPT/HCPCS: 73610-RT; 99283

== ENCOUNTER 2020-05-17 15:44 | Emergency (ER) | payer MEDICAID ==
[2020-05-17] MEDS ORDERED: Sodium Chloride 0.9% 10 ML Syringe FLUSH PRN (15:59)
--- NOTE | 2020-05-17 16:08 | EDM.PDOC ---
ED HPI GENERAL MEDICAL PROBLEM - General Time Seen by Provider: 05/17/20 15:54 Source of Information: Reports: Patient - History of Present Illness INITIAL COMMENTS - FREE TEXT/NARRATIVE: Snehal is a 39 y/o female who comes to the ER with left flank pain and left sided abdominal pain. She reports the pain started yesterday and was more on the right. She saw her PCP and was Flomax and Hydrocodone in case she was getting a kidney stone. She has had a stone int he past. Her last pain med today was at 1030 and her pain is getting worse. No fevers. She does report that she has not been able to void since yesterday when she gave a UA at the clinic. - Related Data Allergies Allergy/AdvReac Type Severity Reaction Status Date / Time vancomycin Allergy Severe Anaphylactic Verified 05/17/20 16:06 Shock adhesive Allergy Rash Verified 05/17/20 16:06 clindamycin Allergy Itching Verified 05/17/20 16:06 codeine Allergy Itching Verified 05/17/20 16:06 levofloxacin [From Levaquin] Allergy Rash Verified 05/17/20 16:06 sulfamethoxazole Allergy Rash Verified 05/17/20 16:06 [From Bactrim] trimethoprim [From Bactrim] Allergy Rash Verified 05/17/20 16:06 Home Meds: Home Meds Multivitamin [One Daily] 1 each PO DAILY 12/25/14 [History] SUMAtriptan succinate [Imitrex] 100 mg PO ASDIRECTED PRN 04/10/16 [History] Ondansetron [Zofran ODT] 4 mg PO Q6H PRN 10/15/16 [History] Propranolol [Inderal LA] 80 mg PO DAILY 10/15/16 [History] Metoprolol Tartrate 100 mg PO BID 08/13/17 [History] Acetaminophen [Tylenol Extra Strength] 1,000 mg PO Q6HR PRN 05/15/19 [History] Ranitidine [Zantac] 150 mg PO BEDTIME 05/15/19 [History] Gabapentin [Neurontin] 200 mg PO TID 03/22/20 [History] Past Medical History - Past Health History Medical/Surgical History: Denies Medical/Surgical History HEENT History: Reports: Head Cardiovascular History: Reports: Other (See Below) Other Cardiovascular History: sinus tachycardia, POTS Gastrointestinal History: Reports: GERD, Inflammatory Bowel Disease Other Gastrointestinal History: Nausea and Vomiting. 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 Sees neurology in [place]; unsure if they are true seizures or not. Other Endocrine/Metabolic History: borderline abn.thyroid lab Dermatologic History: Reports: Other (See Below) Other Dermatologic History: acne - Infectious Disease History Infectious Disease History: Reports: Chicken Pox, MRSA Other Infectious Disease History: Recent history of MRSA on her face. - Past Surgical History HEENT Surgical History: Reports: Adenoidectomy, Tonsillectomy Female Surgical History: Reports: Hysterectomy Social & Family History - Family History Family Medical History: Noncontributory Other Family History: mother has kidney problems Oncologic: Reports: Bladder Other Oncologic Family History: grandma - Caffeine Use Caffeine Use: Reports: Coffee, Soda Review of Systems - Review of Systems Review Of Systems: See Below Constitutional: Reports: No Symptoms Eyes: Reports: No Symptoms Ears: Reports: No Symptoms Nose: Reports: No Symptoms Mouth/Throat: Reports: No Symptoms Respiratory: Reports: No Symptoms Cardiovascular: Reports: No Symptoms GI/Abdominal: Reports: Abdominal Pain, Nausea Genitourinary: Reports: Other (pelvic pain; unable to void) Musculoskeletal: Reports: Back Pain Skin: Reports: No Symptoms Neurological: Reports: No Symptoms Psychiatric: Reports: No Symptoms ED EXAM, GENERAL - Physical Exam Exam: See Below General Appearance: Alert, WD/WN (appears to not feel well) Ears: Normal External Exam, Hearing Grossly Normal Nose: Normal Inspection Throat/Mouth: Normal Teeth, Normal Voice, No Airway Compromise Head: Atraumatic, Normocephalic Neck: Normal Inspection, Supple Respiratory/Chest: No Respiratory Distress, Lungs Clear, Chest Non-Tender Cardiovascular: Normal Peripheral Pulses, Regular Rate, Rhythm, No Edema GI/Abdominal: Normal Bowel Sounds, Soft, Distended (bloated), Tender (left lower quad) (Female) Exam: Deferred Rectal (Female) Exam: Deferred Back Exam: CVA Tenderness (L), CVA Tenderness (R) (mild) Extremities: Normal Inspection, Normal Range of Motion, Normal Capillary Refill Neurological: Alert, Oriented, CN II-XII Intact, Normal Cognition Psychiatric: Normal Affect, Normal Mood Skin Exam: Warm, Dry, Intact, Normal Color, No Rash Lymphatic: No Adenopathy Course - Vital Signs Text/Narrative:: 155 The patient was seen by the AGRICULTURAL ADVISER. Labs ordered. She was given a liter of NS, Toradol 30mg IVP, Fentanyl 100mcg, and Zofran 4mg IVP. 1724 Still having 6/10 pain. UA results reviewed. Note moderate blood, but no protein. Will obtain CT Abd/Pelvis with Stone Protocol. Dilaudid 0.5mg IVP given. 1819 CT results reviewed. No calculi noted, but a distended bladder noted. Patient denies any OTCs meds that she took. 1829 Enriquez placed. Patient had 800ml of clear yellow urine in the enriquez bag and tubing clamped. She has relief of some pressure after enriquez placement. 1899 Note another 300ml in the enriquez bag. Will send patient home with the enriquez and then have her follow up with Dr Rajput in the next 1-2 days. She is already on Flomax and will have her continue that. She was given enriquez care/leg bag instructions and then discharge instructions were given. She ambulated out of the ER in stable condition. - Orders/Labs/Meds Orders: Active Orders 24 hr Category Date Time Status Sodium Chloride 0.9% [Saline Flush] Med 05/17/20 15:59 Active 10 ml FLUSH ASDIRECTED PRN Saline Lock Insert [OM.PC] Stat Oth 05/17/20 15:59 Ordered Medication Orders Sodium Chloride (Saline Flush) 10 ml FLUSH ASDIRECTED PRN PRN Reason: Keep Vein Open Labs: Laboratory Tests 05/17/20 05/17/20 05/17/20 Range/Units 16:00 16:00 17:00 WBC 9.0 (4.0-10.0) x10^3/uL RBC 4.25 (4.00-5.50) x10^6/uL Hgb 13.3 (12.0-16.0) g/dL Hct 38.5 (33.0-47.0) % MCV 90.6 (78.0-93.0) fL MCH 31.3 (26.0-32.0) pg MCHC 34.5 (32.0-36.0) g/dL RDW Coeff of Nydia 12.8 (10.0-15.0) % Plt Count 354 (130-400) x10^3/uL Neut % (Auto) 61.0 (50.0-80.0) % Lymph % (Auto) 30.1 (25.0-50.0) % Leslie % (Auto) 6.8 (2.0-11.0) % Eos % (Auto) 1.8 (0.0-4.0) % Baso % (Auto) 0.3 (0.2-1.2) % Sodium 133 L (136-145) mmol/L Potassium 3.4 L (3.5-5.1) mmol/L Chloride 99 (98-107) mmol/L Carbon Dioxide 23 (21-32) mmol/L Anion Gap 14.4 (10-20) mmol/L BUN 8 (7-18) mg/dL Creatinine 0.9 (0.55-1.02) mg/dL Est Cr Clr Drug Dosing TNP Estimated GFR (MDRD) > 60 Glucose 171 H (74-106) mg/dL Calcium 9.0 (8.5-10.1) mg/dL Corrected Calcium 9.16 (8.5-10.1) mg/dL Total Bilirubin 0.4 (0.2-1.0) mg/dL AST 20 (15-37) U/L ALT 36 (14-59) U/L Alkaline Phosphatase 69 (46-116) U/L Total Protein 7.2 (6.4-8.2) g/dL Albumin 3.8 (3.4-5.0) g/dL Globulin 3.4 Albumin/Globulin Ratio 1.12 Urine Color Light yellow (YELLOW) Urine Appearance Slightly cloudy H (CLEAR) Urine pH 6.0 (5.0-8.0) Ur Specific [place] 1.015 Urine Protein Negative (NEGATIVE) mg/dL Urine Glucose (UA) Negative (NEGATIVE) mg/dL Urine Ketones Negative (NEGATIVE) mg/dL Urine Occult Blood Moderate H (NEGATIVE) Urine Nitrite Negative (NEGATIVE) Urine Bilirubin Negative (NEGATIVE) Urine Urobilinogen 0.2 (0.2) EU/dL Ur Leukocyte Esterase Negative (NEGATIVE) Urine RBC 10-20 H (NOT SEEN) /HPF Urine WBC 0-5 (NOT SEEN) /HPF Ur Squamous Epith Cells Few H (NEGATIVE) /HPF Urine Bacteria Rare (NEGATIVE) /HPF Urine Mucus Few H (NEGATIVE) /LPF Urine HCG, Qual (NEGATIVE) 05/17/20 Range/Units 17:00 WBC (4.0-10.0) x10^3/uL RBC (4.00-5.50) x10^6/uL Hgb (12.0-16.0) g/dL Hct (33.0-47.0) % MCV (78.0-93.0) fL MCH (26.0-32.0) pg MCHC (32.0-36.0) g/dL RDW Coeff of Nydia (10.0-15.0) % Plt Count (130-400) x10^3/uL Neut % (Auto) (50.0-80.0) % Lymph % (Auto) (25.0-50.0) % Leslie % (Auto) (2.0-11.0) % Eos % (Auto) (0.0-4.0) % Baso % (Auto) (0.2-1.2) % Sodium (136-145) mmol/L Potassium (3.5-5.1) mmol/L Chloride (98-107) mmol/L Carbon Dioxide (21-32) mmol/L Anion Gap (10-20) mmol/L BUN (7-18) mg/dL Creatinine (0.55-1.02) mg/dL Est Cr Clr Drug Dosing Estimated GFR (MDRD) Glucose (74-106) mg/dL Calcium (8.5-10.1) mg/dL Corrected Calcium (8.5-10.1) mg/dL Total Bilirubin (0.2-1.0) mg/dL AST (15-37) U/L ALT (14-59) U/L Alkaline Phosphatase (46-116) U/L Total Protein (6.4-8.2) g/dL Albumin (3.4-5.0) g/dL Globulin Albumin/Globulin Ratio Urine Color (YELLOW) Urine Appearance (CLEAR) Urine pH (5.0-8.0) Ur Specific [place] Urine Protein (NEGATIVE) mg/dL Urine Glucose (UA) (NEGATIVE) mg/dL Urine Ketones (NEGATIVE) mg/dL Urine Occult Blood (NEGATIVE) Urine Nitrite (NEGATIVE) Urine Bilirubin (NEGATIVE) Urine Urobilinogen (0.2) EU/dL Ur Leukocyte Esterase (NEGATIVE) Urine RBC (NOT SEEN) /HPF Urine WBC (NOT SEEN) /HPF Ur Squamous Epith Cells (NEGATIVE) /HPF Urine Bacteria (NEGATIVE) /HPF Urine Mucus (NEGATIVE) /LPF Urine HCG, Qual Negative (NEGATIVE) Meds: Medications Generic Name Dose Route Start Last Admin Trade Name Freq PRN Reason Stop Dose Admin Sodium Chloride 10 ml 05/17/20 15:59 Saline Flush FLUSH ASDIRECTED PRN Keep Vein Open Discontinued Medications Generic Name Dose Route Start Last Admin Trade Name Freq PRN Reason Stop Dose Admin Fentanyl 100 mcg 05/17/20 15:59 05/17/20 16:34 Sublimaze IVPUSH 05/17/20 16:00 100 mcg ONETIME ONE Administration Heparin Sodium (Porcine) 500 units 05/17/20 18:24 Heparin Lock Flush 100 Units/Ml IVPUSH 05/17/20 18:25 ASDIRECTED ONE Hydromorphone HCl 0.5 mg 05/17/20 17:26 05/17/20 17:33 Dilaudid IVPUSH 05/17/20 17:27 0.5 mg ONETIME ONE Administration Sodium Chloride 1,000 mls @ 999 mls/hr 05/17/20 15:59 05/17/20 16:12 Normal Saline IV 05/17/20 16:59 999 mls/hr ONETIME ONE Administration Ketorolac Tromethamine 30 mg 05/17/20 15:59 05/17/20 16:14 Toradol IVPUSH 05/17/20 16:00 30 mg ONETIME ONE Administration Ondansetron HCl 4 mg 05/17/20 15:59 05/17/20 16:17 Zofran IVPUSH 05/17/20 16:00 4 mg ONETIME ONE Administration Departure - Departure Time of Disposition: 19:01 Disposition: Home, Self-Care 01 Condition: Good Clinical Impression: Acute urinary retention - Discharge Information Instructions: Acute Urinary Retention, Female Referrals: Elle Rajput MD [Primary Care Provider] - Additional Instructions: -Leave enriquez catheter in overnight. -Continue the Flomax as prescribed by your PCP -Make ap appt in the next 1-2 days at the [facility] with Dr Elle Rajput for a follow up appt. She will discuss a trial without the enriquez to see if you bladder works or she may suggest a urology consult -Return to the ER as needed - My Orders Last 24 Hours: My Active Orders 05/17/20 15:59 Sodium Chloride 0.9% [Saline Flush] 10 ml FLUSH ASDIRECTED PRN Saline Lock Insert [OM.PC] Stat - Assessment/Plan Last 24 Hours: My Active Orders 05/17/20 15:59 Sodium Chloride 0.9% [Saline Flush] 10 ml FLUSH ASDIRECTED PRN Saline Lock Insert [OM.PC] Stat
[2020-05-17] MEDS: Sodium Chloride 0.9% 1,000 ML IV ONE (16:12)
[2020-05-17] MEDS: Ketorolac 30 MG/ML SDV IVPUSH ONE (16:14)
[2020-05-17] MEDS: Ondansetron 4 MG/2 ML SDV IVPUSH ONE (16:17)
[2020-05-17 16:31] LABS: CHLORIDE,CL 99 mmol/L (98-107); SODIUM,NA 133 mmol/L (136-145)
[2020-05-17 16:32] LABS: ANION GAP 14.4 mmol/L (10-20)
[2020-05-17] MEDS: fentaNYL 100 MCG/2 ML SDV IVPUSH ONE (16:34)
[2020-05-17] MEDS: HYDROmorphone 1 MG/ML Syringe IVPUSH ONE (17:33)
--- NOTE | 2020-05-17 18:15 | CT ---
[id number] CT/CT Abdomen Pelvis WO IV EXAM: CT Abdomen Pelvis WO IV CLINICAL DATA: LEFT FLANK PAIN, WBC NEG, R/O RENAL COLIC COMPARISON STUDY: 11/01/2017. FINDINGS: Lung bases are clear. The liver, spleen, pancreas, and adrenal glands are unremarkable. The gallbladder is surgically absent. There is mild bilateral hydroureteronephrosis. No obstructing stones are identified. The bladder is mildly distended. No bowel obstruction or inflammation. Surgical clips within the right lower quadrant likely related prior appendectomy. No lymphadenopathy, free fluid, or pneumoperitoneum. Scattered changes of spondylosis the spine. No fracture or osseous lesion. IMPRESSION: 1. Mild bilateral hydroureteronephrosis. There is no obstructing stone identified. This may be related to a distended urinary bladder. Consider catheterization if unable to void. Joe Mock DO 05/17/20 1810 Thank you for allowing us to participate in the care of your patient.
[2020-05-17 18:43] VITALS: BP 156/86; PULSE 102
== END 2020-05-17 19:28 | disposition home or self-care (01) ==
LOC: SUPCPDRO 15:44 → VM.ED 15:44
DX: R33.9 Retention of urine, unspecified (principal); K21.9 Gastro-esophageal reflux disease without esophagitis; G43.909 Migraine, unspecified, not intractable, without status migrainosus; Z90.710 Acquired absence of both cervix and uterus; Z88.1 Allergy status to other antibiotic agents; Z91.048 Other nonmedicinal substance allergy status; Z88.5 Allergy status to narcotic agent; Z88.8 Allergy status to other drugs, medicaments and biological substances; Z88.2 Allergy status to sulfonamides; Z79.899 Other long term (current) drug therapy
CPT/HCPCS: 51702; 74176; 80053; 81001; 81025; 85025; 96361; 96374; 96375; 99284; 99284-25; J1170; J1642; J1885; J2405; J3010; J7030

== ENCOUNTER 2020-05-21 12:21 | Emergency (ER) | payer MEDICAID ==
[2020-05-21] MEDS ORDERED: Albuterol HFA 18 Gm Inhaler INH PRN (12:32)
[2020-05-21] MEDS ORDERED: Sodium Chloride 0.9% 1,000 ML IV SCH (13:15)
[2020-05-21] MEDS ORDERED: Lactated Ringers 1,000 ML IV SCH (13:15)
--- NOTE | 2020-05-21 13:16 | EDM.PDOC ---
ED HPI GENERAL MEDICAL PROBLEM - General Chief Complaint: Respiratory Problem Stated Complaint: SHORT OF BREATH Time Seen by Provider: 05/21/20 12:55 Source of Information: Reports: Patient History Limitations: Reports: No Limitations - History of Present Illness INITIAL COMMENTS - FREE TEXT/NARRATIVE: Patient presents to ER with complaints of increasing shortness of breath and wheezing. Has had known exposure to COVID 19. States has been caring for her son who developed symptoms on Saturday. He has autism so is difficult with mask compliance. Patient states she noted yesterday that her chest was getting tighter. "feels like pins and needles when I take breaths in". She states the "wheezing started today". Has mild nausea. Has not tried to eat yet today. Has had sinus congestion and headache. Admits to low grade fevers at home. Does typically get IV infusions due to history of an autoimmune disorder where "she doesn't absorb electrolytes so has infusions 2x per week". Onset: Gradual Duration: Hour(s):, Getting Worse Location: Reports: Chest Quality: Reports: Ache Severity: Moderate Improves with: Reports: Rest Associated Symptoms: Reports: Chest Pain, Cough, Loss of Appetite, Nausea/Vomiting, Shortness of Breath, Weakness. Denies: Confusion, cough w sputum Treatments JAVA TECH: Reports: Acetaminophen - Related Data Allergies Allergy/AdvReac Type Severity Reaction Status Date / Time vancomycin Allergy Severe Anaphylactic Verified 05/17/20 16:06 Shock adhesive Allergy Rash Verified 05/17/20 16:06 clindamycin Allergy Itching Verified 05/17/20 16:06 codeine Allergy Itching Verified 05/17/20 16:06 levofloxacin [From Levaquin] Allergy Rash Verified 05/17/20 16:06 sulfamethoxazole Allergy Rash Verified 05/17/20 16:06 [From Bactrim] trimethoprim [From Bactrim] Allergy Rash Verified 05/17/20 16:06 Home Meds: Home Meds Multivitamin [One Daily] 1 each PO DAILY 12/25/14 [History] SUMAtriptan succinate [Imitrex] 100 mg PO ASDIRECTED PRN 04/10/16 [History] Ondansetron [Zofran ODT] 4 mg PO Q6H PRN 10/15/16 [History] Propranolol [Inderal LA] 80 mg PO DAILY 10/15/16 [History] Metoprolol Tartrate 100 mg PO BID 08/13/17 [History] Acetaminophen [Tylenol Extra Strength] 1,000 mg PO Q6HR PRN 05/15/19 [History] Ranitidine [Zantac] 150 mg PO BEDTIME 05/15/19 [History] Gabapentin [Neurontin] 200 mg PO TID 03/22/20 [History] Past Medical History - Past Health History Medical/Surgical History: Denies Medical/Surgical History HEENT History: Reports: Head Cardiovascular History: Reports: Other (See Below) Other Cardiovascular History: sinus tachycardia, POTS Gastrointestinal History: Reports: GERD, Inflammatory Bowel Disease Other Gastrointestinal History: Nausea and Vomiting. 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 Sees neurology in [place]; unsure if they are true seizures or not. Other Endocrine/Metabolic History: borderline abn.thyroid lab Dermatologic History: Reports: Other (See Below) Other Dermatologic History: acne - Infectious Disease History Infectious Disease History: Reports: Chicken Pox, MRSA Other Infectious Disease History: Recent history of MRSA on her face. - Past Surgical History HEENT Surgical History: Reports: Adenoidectomy, Tonsillectomy Female Surgical History: Reports: Hysterectomy Social & Family History - Family History Family Medical History: Noncontributory Other Family History: mother has kidney problems Oncologic: Reports: Bladder Other Oncologic Family History: grandma - Caffeine Use Caffeine Use: Reports: Coffee, Soda ED ROS GENERAL - Review of Systems Review Of Systems: See Below Constitutional: Reports: Fever, Chills, Malaise, Weakness, Fatigue HEENT: Reports: Rhinitis. Denies: Ear Pain, Sinus Problem, Throat Pain Respiratory: Reports: Shortness of Breath, Cough Cardiovascular: Reports: Chest Pain. Denies: Edema, Lightheadedness Endocrine: Reports: Fatigue GI/Abdominal: Reports: Nausea. Denies: Abdominal Pain, Constipation, Diarrhea, Vomiting : Reports: No Symptoms Musculoskeletal: Reports: No Symptoms Skin: Reports: No Symptoms Neurological: Reports: Headache, Weakness Psychiatric: Reports: No Symptoms ED EXAM, GENERAL - Physical Exam Exam: See Below Exam Limited By: No Limitations General Appearance: Alert, WD/WN, No Apparent Distress Ears: Normal External Exam, Normal TMs Nose: Normal Inspection, Normal Mucosa, No Blood Throat/Mouth: Normal Inspection, Normal Oropharynx Head: Normocephalic Neck: Normal Inspection, Supple, Non-Tender Respiratory/Chest: Lungs Clear, Other (tachypnea~ hyperventilating) Cardiovascular: Regular Rate, Rhythm GI/Abdominal: Normal Bowel Sounds, Soft, Non-Tender Extremities: Normal Inspection, No Pedal Edema Neurological: Alert, Oriented Skin Exam: Warm, Dry Course - Orders/Labs/Meds Orders: Active Orders 24 hr Category Date Time Status EKG 12 Lead [EKG Documentation Completion] [RC] STAT Care 05/21/20 12:39 Active Albuterol [Ventolin HFA] Med 05/21/20 12:32 Active See Dose Instructions INH Q4H PRN Heparin Sodium [Heparin Lock Flush 100 Units/ML] Med 05/21/20 14:12 Active 500 units IVPUSH ASDIRECTED PRN Sodium Chloride 0.9% [Normal Saline] 1,000 ml Med 05/21/20 13:15 Active IV ASDIRECTED Medication Orders Albuterol (Ventolin Hfa) 0 gm INH Q4H PRN PRN Reason: Shortness of Breath Last Admin: 05/21/20 13:14 Dose: 2 puff Documented by: BENJAMIN Heparin Sodium (Porcine) (Heparin Lock Flush 100 Units/Ml) 500 units IVPUSH ASDIRECTED PRN PRN Reason: Keep Vein Open Last Admin: 05/21/20 14:20 Dose: 500 units Documented by: BENJAMIN Sodium Chloride (Normal Saline) 1,000 mls @ 750 mls/hr IV ASDIRECTED VINEET Last Admin: 05/21/20 13:15 Dose: 750 mls/hr Documented by: BENJAMIN Labs: Laboratory Tests 05/21/20 05/21/20 05/21/20 Range/Units 12:35 13:00 13:00 WBC 7.7 (4.0-10.0) x10^3/uL RBC 4.17 (4.00-5.50) x10^6/uL Hgb 13.0 (12.0-16.0) g/dL Hct 37.3 (33.0-47.0) % MCV 89.4 (78.0-93.0) fL MCH 31.2 (26.0-32.0) pg MCHC 34.9 (32.0-36.0) g/dL RDW Coeff of Nydia 12.8 (10.0-15.0) % Plt Count 298 (130-400) x10^3/uL Neut % (Auto) 62.2 (50.0-80.0) % Lymph % (Auto) 23.4 L (25.0-50.0) % [place] % (Auto) 11.3 H (2.0-11.0) % Eos % (Auto) 2.6 (0.0-4.0) % Baso % (Auto) 0.5 (0.2-1.2) % D-Dimer, Quantitative 0.70 H (<=0.58) mg/LFEU Sodium (136-145) mmol/L Potassium (3.5-5.1) mmol/L Chloride (98-107) mmol/L Carbon Dioxide (21-32) mmol/L Anion Gap (10-20) mmol/L BUN (7-18) mg/dL Creatinine (0.55-1.02) mg/dL Est Cr Clr Drug Dosing Estimated GFR (MDRD) Glucose (74-106) mg/dL Calcium (8.5-10.1) mg/dL Corrected Calcium (8.5-10.1) mg/dL Total Bilirubin (0.2-1.0) mg/dL AST (15-37) U/L ALT (14-59) U/L Alkaline Phosphatase (46-116) U/L Lactate Dehydrogenase (81-234) U/L Creatine Kinase (26-192) U/L Troponin I (<=0.056) ng/mL C-Reactive Protein (<=0.9) mg/dL Total Protein (6.4-8.2) g/dL Albumin (3.4-5.0) g/dL Globulin Albumin/Globulin Ratio SARS CoV-2 RNA Rapid BLAKE Negative (NEGATIVE) 05/21/20 Range/Units 13:00 WBC (4.0-10.0) x10^3/uL RBC (4.00-5.50) x10^6/uL Hgb (12.0-16.0) g/dL Hct (33.0-47.0) % MCV (78.0-93.0) fL MCH (26.0-32.0) pg MCHC (32.0-36.0) g/dL RDW Coeff of Nydia (10.0-15.0) % Plt Count (130-400) x10^3/uL Neut % (Auto) (50.0-80.0) % Lymph % (Auto) (25.0-50.0) % [place] % (Auto) (2.0-11.0) % Eos % (Auto) (0.0-4.0) % Baso % (Auto) (0.2-1.2) % D-Dimer, Quantitative (<=0.58) mg/LFEU Sodium 136 (136-145) mmol/L Potassium 3.6 (3.5-5.1) mmol/L Chloride 102 (98-107) mmol/L Carbon Dioxide 23 (21-32) mmol/L Anion Gap 14.6 (10-20) mmol/L BUN 6 L (7-18) mg/dL Creatinine 0.7 (0.55-1.02) mg/dL Est Cr Clr Drug Dosing TNP Estimated GFR (MDRD) > 60 Glucose 80 (74-106) mg/dL Calcium 9.2 (8.5-10.1) mg/dL Corrected Calcium 9.52 (8.5-10.1) mg/dL Total Bilirubin 0.4 (0.2-1.0) mg/dL AST 24 (15-37) U/L ALT 35 (14-59) U/L Alkaline Phosphatase 68 (46-116) U/L Lactate Dehydrogenase 193 (81-234) U/L Creatine Kinase 39 (26-192) U/L Troponin I < 0.017 (<=0.056) ng/mL C-Reactive Protein 5.0 H (<=0.9) mg/dL Total Protein 7.5 (6.4-8.2) g/dL Albumin 3.6 (3.4-5.0) g/dL Globulin 3.9 Albumin/Globulin Ratio 0.92 SARS CoV-2 RNA Rapid BLAKE (NEGATIVE) Meds: Medications Generic Name Dose Route Start Last Admin Trade Name Freq PRN Reason Stop Dose Admin Albuterol 0 gm 05/21/20 12:32 05/21/20 13:14 Ventolin Hfa INH 2 puff Q4H PRN Administration Shortness of Breath Heparin Sodium (Porcine) 500 units 05/21/20 14:12 05/21/20 14:20 Heparin Lock Flush 100 Units/Ml IVPUSH 500 units ASDIRECTED PRN Administration Keep Vein Open Sodium Chloride 1,000 mls @ 750 mls/hr 05/21/20 13:15 05/21/20 13:15 Normal Saline IV 750 mls/hr ASDIRECTED VINEET Administration Discontinued Medications Generic Name Dose Route Start Last Admin Trade Name F[place]illicent PRN Reason Stop Dose Admin Lactated Ringer's 1,000 mls @ 250 mls/hr 05/21/20 13:15 Ringers, Lactated IV ASDIRECTED VINEET Prednisone 2 packet 05/21/20 14:04 05/21/20 14:20 Take Home: Prednisone 20 Mg, 2 Tab Pack PO 05/21/20 14:05 2 packet ONETIME ONE Administration - Re-Assessments/Exams Free Text/Narrative Re-Assessment/Exam: 05/21/20 1300 COVID test is negative. Patient complains of tightness in her chest. Oxygen sat is 98% on room. Appears to be hyperventilating, encouraged to take slow deep breaths. Port accessed per nurse, labs obtained. Given 2 puffs of inhaler, patient states "helps with the tightness" 1400-Labs are all essentially negative. Chest xray is clear. IV fluids infusing over last hour. Discussed results with patient. Will start on oral prednisone adn continue inhaler. Continue quarantine as highly likely to get covid due to being caregiver of son. Follow up with PCP for any concerns. Departure - Departure Time of Disposition: 14:05 Disposition: Home, Self-Care 01 Condition: Fair Clinical Impression: Bronchitis - Discharge Information *PRESCRIPTION DRUG MONITORING PROGRAM REVIEWED*: No *COPY OF PRESCRIPTION DRUG MONITORING REPORT IN PATIENT ROBERTO: No Instructions: Upper Respiratory Infection, Adult, [id number] Referrals: Elle Rajput MD [Primary Care Provider] - Forms: ED Department Discharge Additional Instructions: 1. Rest 2. Push fluids 3. Prednisone 40 mg daily for 5 days 4. Albuterol inhaler as needed 5. IV fluids per outpatient orders 6. Follow up with primary care provider as needed for persisting concerns. - My Orders Last 24 Hours: My Active Orders 05/21/20 12:32 Albuterol [Ventolin HFA] See Dose Instructions INH Q4H PRN 05/21/20 12:39 EKG 12 Lead [EKG Documentation Completion] [RC] STAT 05/21/20 13:15 Sodium Chloride 0.9% [Normal Saline] 1,000 ml IV ASDIRECTED 05/21/20 14:12 Heparin Sodium [Heparin Lock Flush 100 Units/ML] 500 units IVPUSH ASDIRECTED PRN - Assessment/Plan Last 24 Hours: My Active Orders 05/21/20 12:32 Albuterol [Ventolin HFA] See Dose Instructions INH Q4H PRN 05/21/20 12:39 EKG 12 Lead [EKG Documentation Completion] [RC] STAT 05/21/20 13:15 Sodium Chloride 0.9% [Normal Saline] 1,000 ml IV ASDIRECTED 05/21/20 14:12 Heparin Sodium [Heparin Lock Flush 100 Units/ML] 500 units IVPUSH ASDIRECTED PRN
[2020-05-21 13:32] LABS: CHLORIDE,CL 102 mmol/L (98-107); SODIUM,NA 136 mmol/L (136-145)
[2020-05-21 13:35] LABS: ANION GAP 14.6 mmol/L (10-20)
--- NOTE | 2020-05-21 13:42 | CR ---
[id number] RAD/RAD Chest PA or AP 1V EXAM: FRONTAL CHEST INDICATION: SHORT OF BREATH. COMPARISON: July 07, 2018. DISCUSSION: Stable mild elevation of the right hemidiaphragm. There has been interval placement of a right internal jugular introduced port tip right atrium. No acute infiltrates. Normal heart size. IMPRESSION: 1. No acute findings. Isac Escamilla MD 05/21/20 [id number] Thank you for allowing us to participate in the care of your patient.
[2020-05-21] MEDS ORDERED: Take Home: predniSONE 20 MG, 2 Tab Pack PO ONE (14:04)
[2020-05-21 17:06] VITALS: BP 143/97; PULSE 100
== END 2020-05-21 14:25 | disposition home or self-care (01) ==
LOC: VM.ED 12:21
DX: J40 Bronchitis, not specified as acute or chronic (principal); K21.9 Gastro-esophageal reflux disease without esophagitis; G43.909 Migraine, unspecified, not intractable, without status migrainosus; Z88.1 Allergy status to other antibiotic agents; Z91.048 Other nonmedicinal substance allergy status; Z88.5 Allergy status to narcotic agent; Z88.8 Allergy status to other drugs, medicaments and biological substances; Z88.2 Allergy status to sulfonamides; Z79.899 Other long term (current) drug therapy; Z20.828 Contact with and (suspected) exposure to other viral communicable diseases
CPT/HCPCS: 71045; 80053; 82550; 83615; 84484; 85025; 85379; 86140; 93005; 96360; 99285-25; A9270-GY; J1642; J7030; J7512; U0002

== ENCOUNTER 2020-05-31 21:37 | Emergency (ER) | payer MEDICAID ==
[2020-05-31] MEDS ORDERED: diphenhydrAMINE 50 MG/ML SDV IVPUSH ONE (22:17)
[2020-05-31] MEDS ORDERED: Metoclopramide 10 MG/2 ML SDV IVPUSH ONE (22:17)
[2020-05-31] MEDS ORDERED: Lactated Ringers 1,000 ML IV ONE (22:17)
[2020-05-31] MEDS ORDERED: Ketorolac 30 MG/ML SDV IVPUSH ONE (22:17)
--- NOTE | 2020-05-31 22:26 | EDM.PDOC ---
ED HPI GENERAL MEDICAL PROBLEM - General Chief Complaint: Headache Stated Complaint: HEADACHE Time Seen by Provider: 05/31/20 22:15 Source of Information: Reports: Patient History Limitations: Reports: No Limitations - History of Present Illness INITIAL COMMENTS - FREE TEXT/NARRATIVE: Patient comes emergency department today with complaints of a migraine headache that is been going on since Saturday. She states that she has a pounding burning sensation in the left side of her head. She has had some black spots in her vision but no double vision. Nausea and vomiting. Photophobia and phonophobia. No fever no chills. No recent falls or head trauma. This feels very similar to her other migraines. She tried her imitrex without relief. She was seen in the primary care setting a couple of days ago and given some Benadryl and Toradol without resolution of her migraine. She has no fever or chills. No chest pain no shortness of breath or difficulty breathing. No cough or congestion. No abdominal pain. This is not the worse migraine she has ever had. Her chart states that she has a stiff neck although she denies a stiff neck when I ask her. Whole head, neck Pain Score (Numeric/FACES): 7 - Related Data Allergies Allergy/AdvReac Type Severity Reaction Status Date / Time vancomycin Allergy Severe Anaphylactic Verified 05/31/20 23:12 Shock adhesive Allergy Rash Verified 05/31/20 23:12 clindamycin Allergy Itching Verified 05/31/20 23:12 codeine Allergy Itching Verified 05/31/20 23:12 levofloxacin [From Levaquin] Allergy Rash Verified 05/31/20 23:12 sulfamethoxazole Allergy Rash Verified 05/31/20 23:12 [From Bactrim] trimethoprim [From Bactrim] Allergy Rash Verified 05/31/20 23:12 Home Meds: Home Meds Multivitamin [One Daily] 1 each PO DAILY 12/25/14 [History] SUMAtriptan succinate [Imitrex] 100 mg PO ASDIRECTED PRN 04/10/16 [History] Ondansetron [Zofran ODT] 4 mg PO Q6H PRN 10/15/16 [History] Propranolol [Inderal LA] 80 mg PO DAILY 10/15/16 [History] Metoprolol Tartrate 100 mg PO BID 08/13/17 [History] Acetaminophen [Tylenol Extra Strength] 1,000 mg PO Q6HR PRN 05/15/19 [History] Ranitidine [Zantac] 150 mg PO BEDTIME 05/15/19 [History] Gabapentin [Neurontin] 200 mg PO TID 03/22/20 [History] Amitriptyline [Elavil] 10 mg PO BEDTIME #30 tab 06/01/20 [Rx] Past Medical History - Past Health History Medical/Surgical History: Denies Medical/Surgical History HEENT History: Reports: Head Cardiovascular History: Reports: Other (See Below) Other Cardiovascular History: sinus tachycardia, POTS Gastrointestinal History: Reports: GERD, Inflammatory Bowel Disease Other Gastrointestinal History: Nausea and Vomiting. 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 Sees neurology in [place]; unsure if they are true seizures or not. Other Endocrine/Metabolic History: borderline abn.thyroid lab Dermatologic History: Reports: Other (See Below) Other Dermatologic History: acne - Infectious Disease History Infectious Disease History: Reports: Chicken Pox, MRSA Other Infectious Disease History: Recent history of MRSA on her face. - Past Surgical History HEENT Surgical History: Reports: Adenoidectomy, Tonsillectomy Female Surgical History: Reports: Hysterectomy Social & Family History - Family History Family Medical History: Noncontributory Other Family History: mother has kidney problems Oncologic: Reports: Bladder Other Oncologic Family History: grandma - Caffeine Use Caffeine Use: Reports: Coffee, Soda ED ROS GENERAL - Review of Systems Review Of Systems: Comprehensive ROS is negative, except as noted in HPI. - Physical Exam Exam: See Below Exam Limited By: No Limitations General Appearance: Alert, WD/WN, Mild Distress (she is tearful when examining her. ) Eye Exam: Bilateral Eye: EOMI, PERRL Ears: Normal External Exam, Normal TMs Nose: Normal Inspection Throat/Mouth: Normal Inspection, Normal Lips, Normal Oropharynx, Normal Voice Head Exam: Atraumatic, Normocephalic Neck: Normal Inspection, Supple, Non-Tender Respiratory/Chest: No Respiratory Distress, Lungs Clear, Normal Breath Sounds, No Accessory Muscle Use, Chest Non-Tender Cardiovascular: Normal Peripheral Pulses, Regular Rate, Rhythm GI/Abdominal: Normal Bowel Sounds, Soft, Non-Tender (Female) Exam: Deferred Rectal (Female) Exam: Deferred Neuro Exam (Abbreviated): Alert, Oriented, CN II-XII Intact, Normal Cognition, Normal Reflexes, No Motor/Sensory Deficits, Other (NO Nucal rigidity. ) Back Exam: Normal Inspection Extremities: Normal Inspection, Normal Range of Motion, No Pedal Edema Psychiatric: Normal Affect, Normal Mood Skin Exam: Warm, Dry, Intact, Normal Color, No Rash Course - Vital Signs Last Recorded V/S: Last Vital Signs Temp 97.8 F 05/31/20 21:40 Pulse 104 H 05/31/20 21:40 Resp 20 05/31/20 21:40 BP 137/96 H 05/31/20 21:40 Pulse Ox 96 05/31/20 21:40 - Orders/Labs/Meds Meds: Medications Discontinued Medications Generic Name Dose Route Start Last Admin Trade Name Satishq PRN Reason Stop Dose Admin Amitriptyline HCl 10 mg 06/01/20 00:39 06/01/20 00:48 Elavil PO 06/01/20 00:40 10 mg ONETIME ONE Administration Dexamethasone 10 mg 05/31/20 23:24 05/31/20 23:42 Dexamethasone IVPUSH 05/31/20 23:25 10 mg ONETIME ONE Administration Diphenhydramine HCl 50 mg 05/31/20 22:17 05/31/20 22:42 Benadryl IVPUSH 05/31/20 22:18 50 mg ONETIME ONE Administration Heparin Sodium (Porcine) 500 units 06/01/20 00:40 06/01/20 00:48 Heparin Lock Flush 100 Units/Ml IVPUSH 500 units ASDIRECTED PRN Administration Keep Vein Open Lactated Ringer's 1,000 mls @ 999 mls/hr 05/31/20 22:17 05/31/20 22:30 Ringers, Lactated IV 05/31/20 23:17 999 mls/hr ONETIME ONE Administration Promethazine HCl 12.5 mg/ 100.5 mls @ 400 mls/hr 05/31/20 23:24 05/31/20 23:30 Sodium Chloride IV 05/31/20 23:39 400 mls/hr ONETIME ONE Administration Ketorolac Tromethamine 30 mg 05/31/20 22:17 05/31/20 22:40 Toradol IVPUSH 05/31/20 22:18 30 mg ONETIME ONE Administration Metoclopramide HCl 10 mg 05/31/20 22:17 05/31/20 22:33 Reglan IVPUSH 05/31/20 22:18 10 mg ONETIME ONE Administration Promethazine HCl Confirm 05/31/20 23:40 05/31/20 23:46 Phenergan Administered 05/31/20 23:41 Not Given Dose 25 mg .ROUTE .[facility] ONE - Re-Assessments/Exams Free Text/Narrative Re-Assessment/Exam: 05/31/20 22:26 Patient has her port already accessed. 1 L LR wide open. Ketorolac 30 mg IV push. Benadryl 50 mg IV push. Reglan 10 mg IV push. She did have some improvement of her headache. She is sleeping when I enter the room and I have to shake her to awaken her. Once she does awake she immediately starts to cry and says that her headache is a little bit better so bad that she cant even rest. Despite her sleeping when I enter the room. Dexamethasone 10mg IVP Phenergan 12.5mg IVP She had little bit more improvement and yet again when I enter the room she is sleeping and when I wake her up she starts to cry and states that her headache is so bad she can't even rest. Repeat neuro exam is unremarkable. Nucal rigidity test is negative. NO fever. Her symptoms have been going on since saturday and feels like a normal migraine to her. She has been struggling with increasing migraines over the past couple of months. I will start her on amitriptyline 10 mg at bedtime prophylactics as well as treatment of recurrent migraines. Care instructions as below are explained to the patient she was comfortable with this plan and her questions were answered. Departure - Departure Time of Disposition: 00:58 Disposition: Home, Self-Care 01 Clinical Impression: Migraine Qualifiers: Migraine type: with aura Status migrainosus presence: without status migrainosus Intractability: not intractable Qualified Code(s): G43.109 - Migraine with aura, not intractable, without status migrainosus - Discharge Information Prescriptions: Amitriptyline [Elavil] 10 mg PO BEDTIME #30 tab Referrals: PCP,None [Primary Care Provider] - Forms: ED Department Discharge Additional Instructions: Home rest tonight. Decrease stimulation from tablet phones. Drink plenty of fluids. Amitriptyline 1 tablet at bedtime to help prevent migraines. First dose given in the ED and RX to [facility]. Return to the ED if new or worsening symptoms. Follow up with PCP in the next 4-6 days if not improving sooner if worse.
[2020-05-31 23:12] VITALS: BP 137/96; PULSE 104
[2020-05-31] MEDS ORDERED: Promethazine 12.5 MG in Sodium Chloride 0.9% 100 ML IV ONE (23:24)
[2020-05-31] MEDS ORDERED: Dexamethasone 4 MG/ML SDV IVPUSH ONE (23:24)
[2020-05-31] MEDS ORDERED: Promethazine 25 MG/ML SDV ONE (23:40)
[2020-06-01] MEDS ORDERED: Amitriptyline 10 MG Tab PO ONE (00:39)
== END 2020-06-01 00:58 | disposition home or self-care (01) ==
LOC: VM.ED 21:37
DX: G43.909 Migraine, unspecified, not intractable, without status migrainosus (principal); K21.9 Gastro-esophageal reflux disease without esophagitis; Z88.1 Allergy status to other antibiotic agents; Z88.5 Allergy status to narcotic agent; Z91.048 Other nonmedicinal substance allergy status; Z88.2 Allergy status to sulfonamides; Z79.899 Other long term (current) drug therapy
CPT/HCPCS: 96374; 96375; 99283-25; 99284; A9270-GY; J1100; J1200; J1642; J1885; J2550; J2765; J7120

== ENCOUNTER 2020-07-27 23:50 | Emergency (ER) | payer MEDICAID ==
[2020-07-28] MEDS: Lactated Ringers 1,000 ML IV ONE (00:20)
[2020-07-28] MEDS: Metoclopramide 10 MG/2 ML SDV IVPUSH ONE (00:22)
[2020-07-28] MEDS: Ketorolac 30 MG/ML SDV IVPUSH ONE (00:24)
[2020-07-28] MEDS: diphenhydrAMINE 50 MG/ML SDV IVPUSH ONE (00:26)
[2020-07-28] MEDS: Haloperidol Lactate 5 MG/ML SDV IV ONE (01:36)
--- NOTE | 2020-07-28 02:20 | EDM.PDOC ---
ED HPI GENERAL MEDICAL PROBLEM - General Chief Complaint: Headache Stated Complaint: Headache Time Seen by Provider: 07/28/20 00:01 Source of Information: Reports: Patient History Limitations: Reports: No Limitations - History of Present Illness INITIAL COMMENTS - FREE TEXT/NARRATIVE: Patient comes emergency department today from home with complaints of a headache. She has kind of chronic migraines. Today at about 9:00 she had the development of some stabbing severe pain on the left side of her head. She has positive photophobia and phonophobia. Some nausea and vomiting. She also had a little bit of blurry vision in her lateral visual lawson. No diplopia. No paresthesias. No weakness dizziness lightheadedness. No neck pain. No fever no chills. No cough or congestion. No chest pain or shortness of breath or difficulty breathing. No abdominal pain. She does admit to nausea and vomiting. No hematuria dysuria or urinary frequency. This is not the worst he adache she has ever had. No COVID exposure no COVID symptoms. Treatments PATIENT ACCOUNTS COORDINATOR: Reports: Other (see below) Other Treatments PATIENT ACCOUNTS COORDINATOR: IV fluids left side of head Pain Score (Numeric/FACES): 8 - Related Data Allergies Allergy/AdvReac Type Severity Reaction Status Date / Time vancomycin Allergy Severe Anaphylactic Verified 07/28/20 00:41 Shock adhesive Allergy Rash Verified 07/28/20 00:41 clindamycin Allergy Itching Verified 07/28/20 00:41 codeine Allergy Itching Verified 07/28/20 00:41 levofloxacin [From Levaquin] Allergy Rash Verified 07/28/20 00:41 sulfamethoxazole Allergy Rash Verified 07/28/20 00:41 [From Bactrim] trimethoprim [From Bactrim] Allergy Rash Verified 07/28/20 00:41 Home Meds: Home Meds Multivitamin [One Daily] 1 each PO DAILY 12/25/14 [History] SUMAtriptan succinate [Imitrex] 100 mg PO ASDIRECTED PRN 04/10/16 [History] Ondansetron [Zofran ODT] 4 mg PO Q6H PRN 10/15/16 [History] Propranolol [Inderal LA] 80 mg PO DAILY 10/15/16 [History] Metoprolol Tartrate 100 mg PO BID 08/13/17 [History] Acetaminophen [Tylenol Extra Strength] 1,000 mg PO Q6HR PRN 05/15/19 [History] Ranitidine [Zantac] 150 mg PO BEDTIME 05/15/19 [History] Gabapentin [Neurontin] 200 mg PO TID 03/22/20 [History] Amitriptyline [Elavil] 10 mg PO BEDTIME #30 tab 06/01/20 [Rx] Past Medical History - Past Health History Medical/Surgical History: Denies Medical/Surgical History HEENT History: Reports: Head Cardiovascular History: Reports: Other (See Below) Other Cardiovascular History: sinus tachycardia, POTS Gastrointestinal History: Reports: GERD, Inflammatory Bowel Disease Other Gastrointestinal History: Nausea and Vomiting. 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 Sees neurology in [place]; unsure if they are true seizures or not. Other Endocrine/Metabolic History: borderline abn.thyroid lab Dermatologic History: Reports: Other (See Below) Other Dermatologic History: acne - Infectious Disease History Infectious Disease History: Reports: Chicken Pox, MRSA Other Infectious Disease History: Recent history of MRSA on her face. - Past Surgical History HEENT Surgical History: Reports: Adenoidectomy, Tonsillectomy Female Surgical History: Reports: Hysterectomy Social & Family History - Family History Family Medical History: No Pertinent Family History Other Family History: mother has kidney problems Oncologic: Reports: Bladder Other Oncologic Family History: grandma - Caffeine Use Caffeine Use: Reports: Coffee, Soda ED ROS GENERAL - Review of Systems Review Of Systems: Comprehensive ROS is negative, except as noted in HPI. - Physical Exam Exam: See Below Exam Limited By: No Limitations General Appearance: Alert, WD/WN, Moderate Distress (She is sitting there holding her head. I wonder if there is not some psychosomatic overlay to this patient's presentation is quite dramatic) Eye Exam: Bilateral Eye: EOMI, Proptosis Ears: Normal External Exam Nose: Normal Inspection Throat/Mouth: Normal Inspection Head Exam: Atraumatic, Normocephalic Neck: Normal Inspection, Supple, Non-Tender, Full Range of Motion Respiratory/Chest: No Respiratory Distress, Lungs Clear, Normal Breath Sounds, Chest Non-Tender Cardiovascular: Normal Peripheral Pulses, Regular Rate, Rhythm GI/Abdominal: Normal Bowel Sounds, Soft, Non-Tender, Pelvis Stable (Female) Exam: Deferred Rectal (Female) Exam: Deferred Neuro Exam (Abbreviated): Alert, Oriented, CN II-XII Intact, Normal Cognition, Normal Gait, Normal Reflexes, No Motor/Sensory Deficits Back Exam: Normal Inspection, Full Range of Motion Extremities: Normal Inspection, Normal Range of Motion, Normal Capillary Refill Psychiatric: Anxious Skin Exam: Warm, Dry, Intact, Normal Color, No Rash Course - Vital Signs Last Recorded V/S: Last Vital Signs Temp 98.1 F 07/27/20 23:50 Pulse 114 H 07/27/20 23:50 Resp 20 07/27/20 23:50 BP 136/95 H 07/27/20 23:50 Pulse Ox 98 07/27/20 23:50 - Orders/Labs/Meds Meds: Medications Discontinued Medications Generic Name Dose Route Start Last Admin Trade Name Susi PRN Reason Stop Dose Admin Diphenhydramine HCl 50 mg 07/28/20 00:09 07/28/20 00:26 Benadryl IVPUSH 07/28/20 00:10 50 mg ONETIME ONE Administration Haloperidol Lactate 2.5 mg 07/28/20 01:17 07/28/20 01:36 Haldol IV 07/28/20 01:18 2.5 mg ONETIME ONE Administration Lactated Ringer's 1,000 mls @ 999 mls/hr 07/28/20 00:10 07/28/20 00:20 Ringers, Lactated IV 07/28/20 01:10 999 mls/hr ONETIME ONE Administration Ketorolac Tromethamine 30 mg 07/28/20 00:09 07/28/20 00:24 Toradol IVPUSH 07/28/20 00:10 30 mg ONETIME ONE Administration Metoclopramide HCl 10 mg 07/28/20 00:09 07/28/20 00:22 Reglan IVPUSH 07/28/20 00:10 10 mg ONETIME ONE Administration - Re-Assessments/Exams Free Text/Narrative Re-Assessment/Exam: Her subcutaneous port that she uses at home for home therapy for her pots s yndrome was already accessed. Ketorolac 30 mg IV push. Benadryl 50 mg IV push. Reglan 10 mg IV push. She had some improvement of the pain in her other headache symptoms. Haldol 2.5 mg IV push. This patient very similar Akil as to how I have seen her before when she is sleeping in the room and you have to shake her to wake her the minute you start talking to her she starts complaining of the pain again and holding the left side of her head. Did review her [place] chart and she has had multiple CT scans as well as MRIs and the most recent past that have all been unremarkable. She did have quite a bit of improvement of her symptoms with the above therapy. We will discharge her home with symptomatic management. She should follow-up with her primary care to discuss better strategies to prevent her migraines. She is comfortable with this plan and her questions are answered. Departure - Departure Time of Disposition: 02:20 Disposition: Home, Self-Care 01 Clinical Impression: Migraine Qualifiers: Migraine type: with aura Status migrainosus presence: without status migrainosus Intractability: not intractable Qualified Code(s): G43.109 - Migraine with aura, not intractable, without status migrainosus - Discharge Information Instructions: Recurrent Migraine Headache, [id number], Migraine Headache, [id number], Pain Medicine Instructions, [id number] Referrals: PCP,Unobtain [Primary Care Provider] - Forms: ED Department Discharge Additional Instructions: Home rest as much as possible. Decrease your stimulation with lights and sounds. Drink plenty of fluids. Tylenol and or Ibuprofen for pain. Continue with your previous therapies. Return to the ED if new or worsening symptoms. Follow up with PCP in the next week for recheck and consider different therapies to prevent your migraines. Sepsis Event Note (ED) - Evaluation Sepsis Screening Result: No Definite Risk - Focused Exam Vital Signs: Vital Signs Temp Pulse Resp BP Pulse Ox 07/27/20 23:50 98.1 F 114 H 20 136/95 H 98
[2020-07-28 06:10] VITALS: BP 126/73; PULSE 82
== END 2020-07-28 02:40 | disposition home or self-care (01) ==
LOC: VM.ED 23:50
DX: G43.109 Migraine with aura, not intractable, without status migrainosus (principal); K21.9 Gastro-esophageal reflux disease without esophagitis; Z88.1 Allergy status to other antibiotic agents; Z91.048 Other nonmedicinal substance allergy status; Z88.5 Allergy status to narcotic agent; Z88.2 Allergy status to sulfonamides; Z79.899 Other long term (current) drug therapy
CPT/HCPCS: 96374; 96375; 99283-25; 99284; J1200; J1630; J1885; J2765; J7120

== ENCOUNTER 2021-07-04 15:54 | Emergency (ER) | payer MEDICAID ==
[2021-07-04] MEDS ORDERED: Promethazine 12.5 MG in Sodium Chloride 0.9% 100 ML IV ONE (16:22)
[2021-07-04] MEDS ORDERED: Ketorolac 30 MG/ML SDV IVPUSH ONE (16:22)
--- NOTE | 2021-07-04 16:28 | EDM.PDOC ---
ED HPI GENERAL MEDICAL PROBLEM - General Chief Complaint: Headache Stated Complaint: Migraine headache Time Seen by Provider: 07/04/21 16:00 Source of Information: Reports: Patient, Family History Limitations: Reports: No Limitations - History of Present Illness INITIAL COMMENTS - FREE TEXT/NARRATIVE: Patient presents today with one of her typical migraine headaches that she rates about 8-1/2 out of 10 it woke her up this morning about 5:00. She states she typically has these migraines almost daily some of the worse than others. She states this is not the worst headache of her life and its her typical pattern. She has seen neurology multiple times with numerous head CTs and MRI all scans everything is always been normal. She last saw neurology about 3 months ago wi th a normal exam and normal CT of the head. She tried this morning with a bag of fluids and Imitrex this morning but did not relieve the headache. She states she called the clinic and was told to come here to the ER. Patient states she is usually having to have numerous medications to break the migraines and sometimes she even has to be admitted. Although this time she states she does not want to be admitted just treated and discharged home. She has had nausea with vomiting x1 this morning none since about 12:00 today though. She has had some blurred vision in the left eye which is typical for her migraine along with a change in speech pattern. 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 She has no other complaints at this time Onset: Today Duration: Hour(s): Location: Reports: Head Quality: Reports: Dull, Pressure Improves with: Reports: None Worsens with: Reports: None Associated Symptoms: Reports: Headaches, Nausea/Vomiting Left Frontal Headache Pain Score (Numeric/FACES): 8 - Related Data Allergies Allergy/AdvReac Type Severity Reaction Status Date / Time vancomycin Allergy Severe Anaphylactic Verified 07/04/21 16:21 Shock adhesive Allergy Rash Verified 07/04/21 16:21 clindamycin Allergy Itching Verified 07/04/21 16:21 codeine Allergy Itching Verified 07/04/21 16:21 levofloxacin [From Levaquin] Allergy Rash Verified 07/04/21 16:21 sulfamethoxazole Allergy Rash Verified 07/04/21 16:21 [From Bactrim] trimethoprim [From Bactrim] Allergy Rash Verified 07/04/21 16:21 Home Meds: Home Meds SUMAtriptan succinate [Imitrex] 100 mg PO ASDIRECTED PRN 04/10/16 [History] Propranolol [Inderal LA] 160 mg PO DAILY 10/15/16 [History] Acetaminophen [Tylenol Extra Strength] 1,000 mg PO Q6HR PRN 05/15/19 [History] Gabapentin [Neurontin] 600 mg PO TID 03/22/20 [History] Cefdinir [Omnicef] 300 mg PO BID 07/04/21 [History] Cyclobenzaprine [Flexeril] 5 - 10 mg PO TID PRN 07/04/21 [History] Heparin Sodium,Porcine/PF [Heparin Lock Flush 100 Unit/ml] 500 unit IV ASDIRECTED PRN 07/04/21 [History] Hydrocodone/Acetaminophen [HYDROcodone-Acetaminophen 5-325 MG] 1 each PO Q6H PRN 07/04/21 [History] Magnesium Oxide [Magnesium] 500 mg PO DAILY 07/04/21 [History] Metoclopramide HCl [Reglan] 5 mg PO TID PRN 07/04/21 [History] Omeprazole 20 mg PO ACBREAKFAST 07/04/21 [History] Zaleplon [Sonata] 5 mg PO BEDTIME PRN 07/04/21 [History] predniSONE [Prednisone] 20 mg PO BID 07/04/21 [History] traZODone 50 mg PO BEDTIME 07/04/21 [History] Past Medical History - Past Health History Medical/Surgical History: Denies Medical/Surgical History HEENT History: Reports: Head Cardiovascular History: Reports: Other (See Below) Other Cardiovascular History: sinus tachycardia, POTS Gastrointestinal History: Reports: GERD, Inflammatory Bowel Disease Other Gastrointestinal History: Nausea and Vomiting. Chronic left sided abdominal pain Genitourinary History: Reports: Renal Calculus Other Genitourinary History: gross hematuria SPARE FIXER History: Reports: Other SPARE FIXER History: ovarian 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 Sees neurology in [place]; unsure if they are true seizures or not. Other Endocrine/Metabolic History: borderline abn.thyroid lab Dermatologic History: Reports: Other (See Below) Other Dermatologic History: acne - Infectious Disease History Infectious Disease History: Reports: Chicken Pox, MRSA Other Infectious Disease History: Recent history of MRSA on her face. - Past Surgical History HEENT Surgical History: Reports: Adenoidectomy, Tonsillectomy Other HEENT Surgeries/Procedures: History of bilateral typanoplasty GI Surgical History: Reports: Appendectomy, Cholecystectomy, Colonoscopy Female Surgical History: Reports: Hysterectomy Social & Family History - Family History Family Medical History: No Pertinent Family History Other Family History: mother has kidney problems Oncologic: Reports: Bladder Other Oncologic Family History: grandma - Caffeine Use Caffeine Use: Reports: Coffee, Soda ED ROS GENERAL - Review of Systems Review Of Systems: See Below Constitutional: Reports: No Symptoms. Denies: Fever, Chills, Malaise, Weakness HEENT: Reports: Vision Change Respiratory: Reports: No Symptoms Cardiovascular: Reports: No Symptoms Endocrine: Reports: No Symptoms GI/Abdominal: Reports: No Symptoms : Reports: No Symptoms Musculoskeletal: Reports: No Symptoms Skin: Reports: No Symptoms Neurological: Reports: Headache. Denies: Confusion, Dizziness, Numbness, Paresthesia, Pre-Existing Deficit, Seizure, Syncope, Tremors, Trouble Speaking, Difficulty Walking, Weakness, Change in Speech, Gait Disturbance Psychiatric: Reports: No Symptoms Hematologic/Lymphatic: Reports: No Symptoms Immunologic: Reports: No Symptoms - Physical Exam Exam: See Below Exam Limited By: No Limitations General Appearance: Alert, WD/WN, No Apparent Distress Eye Exam: Bilateral Eye: EOMI, Normal Fundi, Normal Inspection, PERRL Ears: Normal External Exam, Normal Canal, Hearing Grossly Normal, Normal TMs, Other (Noted PE tube in the right canal) Nose: Normal Inspection, Normal Mucosa, No Blood Throat/Mouth: Normal Inspection, Normal Lips, Normal Teeth, Normal Gums, Normal Oropharynx, Normal Voice, No Airway Compromise Head Exam: Atraumatic, Normocephalic Neck: Normal Inspection, Supple, Non-Tender, Full Range of Motion. No: Limited Range of Motion, Lymphadenopathy (L), Lymphadenopathy (R) Respiratory/Chest: No Respiratory Distress, Lungs Clear, Normal Breath Sounds, No Accessory Muscle Use, Chest Non-Tender Cardiovascular: Normal Peripheral Pulses, Regular Rate, Rhythm, No Edema, No Gallop, No JVD, No Murmur, No Rub GI/Abdominal: Normal Bowel Sounds, Soft, Non-Tender, No Organomegaly, No Distention. No: Guarding, Rigid, Rebound, Tender Neuro Exam (Abbreviated): Alert, Oriented, CN II-XII Intact, Normal Cognition, Normal Gait, Normal Reflexes, No Motor/Sensory Deficits, Other (Patient has equal soft touch sensation bilateral face equal certification and selection specialist strength graded 5 of 5 upper lower there is no noted pronator drift) Extremities: Normal Inspection, Normal Range of Motion, Non-Tender, No Pedal Edema, Normal Capillary Refill Psychiatric: Normal Affect, Normal Mood Skin Exam: Warm, Dry, Intact, Normal Color, No Rash Course - Vital Signs Text/Narrative:: Toradol 30 mg IV Phenergan 12.5 mg IV Patient was rechecked states the headaches not really change nausea is gotten slightly better she is okay with trying Haldol and had in the past and it seems to have helped we will give 10 mg Haldol IM Last Recorded V/S: Last Vital Signs Temp 36.9 C 07/04/21 16:00 Pulse 92 07/04/21 16:00 Resp 16 07/04/21 16:00 BP 181/92 H 07/04/21 16:00 Pulse Ox 96 07/04/21 16:00 - Orders/Labs/Meds Meds: Medications Discontinued Medications Generic Name Dose Route Start Last Admin Trade Name Freq PRN Reason Stop Dose Admin Haloperidol Lactate 10 mg 07/04/21 17:13 07/04/21 17:19 Haloperidol Lactate 5 Mg/Ml Sdv IM 07/04/21 17:14 10 mg STAT ONE Administration Heparin Sodium (Porcine) 500 units 07/04/21 17:52 Heparin Sodium 100 Units/Ml 5 Ml Syringe IVPUSH ASDIRECTED PRN Keep Vein Open Heparin Sodium (Porcine) Confirm 07/04/21 17:59 07/04/21 18:00 Heparin Sodium 100 Units/Ml 5 Ml Syringe Administered 07/04/21 18:00 500 units Dose Administration 500 units .ROUTE .STK-MED ONE Promethazine HCl 12.5 mg/ 100.5 mls @ 400 mls/hr 07/04/21 16:22 07/04/21 16:43 Sodium Chloride IV 07/04/21 16:37 400 mls/hr ONETIME ONE Administration Ketorolac Tromethamine 30 mg 07/04/21 16:22 07/04/21 16:42 Ketorolac 30 Mg/Ml Sdv IVPUSH 07/04/21 16:23 30 mg ONETIME ONE Administration Departure - Departure Time of Disposition: 17:30 Disposition: Home, Self-Care 01 Condition: Good Clinical Impression: Migraine headache Qualifiers: Migraine type: with aura Status migrainosus presence: without status migrainosus Intractability: not intractable Qualified Code(s): G43.109 - Migraine with aura, not intractable, without status migrainosus - Discharge Information *PRESCRIPTION DRUG MONITORING PROGRAM REVIEWED*: No *COPY OF PRESCRIPTION DRUG MONITORING REPORT IN PATIENT ROBERTO: No Instructions: Chronic Migraine Headache, [id number] Referrals: Elle Rajput MD [Primary Care Provider] - Forms: ED Department Discharge Additional Instructions: Follow-up with your primary care provider in the next 24 to 48 hours Continue take all of your medication as directed Return to the emergency room if anything changes or gets worse Sepsis Event Note (ED) - Focused Exam Vital Signs: Vital Signs Temp Pulse Resp BP Pulse Ox 07/04/21 16:00 36.9 C 92 16 181/92 H 96 - Problem List & Annotations (1) Migraine SNOMED Code(s): 23327547 Code(s): G43.909 - MIGRAINE, UNSP, NOT INTRACTABLE, WITHOUT STATUS MIGRAINOSUS Status: Acute
[2021-07-04] MEDS ORDERED: Haloperidol Lactate 5 MG/ML SDV IM ONE (17:13)
[2021-07-04 17:15] VITALS: BP 181/92; PULSE 92
== END 2021-07-04 17:53 | disposition home or self-care (01) ==
LOC: VM.ED 15:54
DX: G43.109 Migraine with aura, not intractable, without status migrainosus (principal); Z88.1 Allergy status to other antibiotic agents; Z91.048 Other nonmedicinal substance allergy status; Z88.5 Allergy status to narcotic agent; Z79.899 Other long term (current) drug therapy
CPT/HCPCS: 96365; 96372; 96375; 99283; J1630; J1642; J1885; J2550

== ENCOUNTER 2021-11-21 16:08 | Emergency (ER) | payer MEDICAID ==
[2021-11-21 17:30] VITALS: BP 126/76; PULSE 99
== END 2021-11-21 17:10 | disposition home or self-care (01) ==
LOC: VM.ED 16:08
DX: R10.2 Pelvic and perineal pain (principal); M25.552 Pain in left hip; K21.9 Gastro-esophageal reflux disease without esophagitis; Z79.899 Other long term (current) drug therapy; Z88.2 Allergy status to sulfonamides; Z88.8 Allergy status to other drugs, medicaments and biological substances
CPT/HCPCS: 99283; 99284

== ENCOUNTER 2022-08-09 12:07 | Inpatient (IN) | payer MEDICAID ==
[2022-08-09] MEDS ORDERED: Ondansetron 4 MG Tab.DIS PO PRN (13:36)
[2022-08-09] MEDS ORDERED: Metoclopramide 5 MG Tab PO PRN (13:36)
[2022-08-09] MEDS ORDERED: NICOTINE POLACRILEX 2 MG BUCCAL PRN (13:36)
[2022-08-09] MEDS: Acetaminophen 325 MG Tab PO PRN ×2 (14:56→20:05)
[2022-08-09] MEDS ORDERED: Meropenem 1 GM SDV IV SCH (15:00)
[2022-08-09] MEDS: Meropenem 1 GM in Sodium Chloride 0.9% 100 ML IV SCH ×2 (15:20→22:36)
[2022-08-09] MEDS: Heparin Sodium 100 Units/ML 3 ML Syringe IVPUSH PRN (18:26)
[2022-08-09] MEDS: Enoxaparin 60 MG/0.6 ML Syringe SUBCUT SCH (20:06)
[2022-08-09] MEDS: traZODone 50 MG Tab PO SCH (20:10)
[2022-08-09] MEDS: Gabapentin 300 MG Cap PO SCH (20:11)
[2022-08-09] MEDS: DULoxetine 20 MG Cap PO SCH (20:11)
[2022-08-09] MEDS: Nirmatrelvir/Ritonavir 300 MG/100 MG Dose Pack PO SCH (20:14)
[2022-08-09] MEDS ORDERED: traZODone 50 MG Tab PO SCH ×2 (21:00)
[2022-08-09] MEDS ORDERED: Apixaban 2.5 MG Tab PO SCH ×2 (21:00)
[2022-08-10] MEDS: Sodium Chloride 0.9% 10 ML Syringe FLUSH SCH ×5 (01:39→22:12)
[2022-08-10] MEDS: Heparin Sodium 100 Units/ML 3 ML Syringe IVPUSH PRN ×2 (01:40→10:07)
[2022-08-10] MEDS: Acetaminophen 325 MG Tab PO PRN ×4 (02:26→21:59)
[2022-08-10] MEDS: Omeprazole 20 MG Cap.CR PO SCH (06:06)
[2022-08-10] MEDS: Meropenem 1 GM in Sodium Chloride 0.9% 100 ML IV SCH ×3 (06:11→22:15)
[2022-08-10] MEDS ORDERED: Omeprazole 20 MG Cap.CR PO SCH ×2 (07:00)
[2022-08-10 07:17] LABS: CHLORIDE,CL 106 mmol/L (98-107); SODIUM,NA 140 mmol/L (136-145)
[2022-08-10 07:18] LABS: ANION GAP 11.5 mmol/L (5-15); ESTIMATED GFR 122 mL/min (>=60)
[2022-08-10] MEDS: Magnesium Oxide 400 MG Tab PO SCH (09:52)
[2022-08-10] MEDS: Gabapentin 300 MG Cap PO SCH ×3 (09:52→20:24)
[2022-08-10] MEDS: Enoxaparin 60 MG/0.6 ML Syringe SUBCUT SCH (09:53)
[2022-08-10] MEDS: Nicotine 7 MG/24 Hr Patch TOP SCH (09:54)
[2022-08-10] MEDS: Nirmatrelvir/Ritonavir 300 MG/100 MG Dose Pack PO SCH ×2 (09:55→20:22)
[2022-08-10] MEDS ORDERED: Sodium Chloride 0.9% 10 ML Syringe FLUSH PRN (11:45)
[2022-08-10] MEDS: traMADol 50 MG Tab PO PRN ×2 (12:08→18:20)
[2022-08-10] MEDS: Heparin Sodium 100 Units/ML 3 ML Syringe IVPUSH SCH (18:19)
[2022-08-10] MEDS: DULoxetine 20 MG Cap PO SCH (20:24)
[2022-08-10] MEDS: traZODone 50 MG Tab PO SCH (20:25)
[2022-08-10] MEDS: Enoxaparin 80 MG/0.8 ML Syringe SUBCUT SCH (20:25)
[2022-08-11] MEDS: Sodium Chloride 0.9% 10 ML Syringe FLUSH SCH ×3 (01:18→09:48)
[2022-08-11] MEDS: Heparin Sodium 100 Units/ML 3 ML Syringe IVPUSH SCH ×2 (01:19→09:48)
[2022-08-11] MEDS: Omeprazole 20 MG Cap.CR PO SCH (06:20)
[2022-08-11] MEDS: Meropenem 1 GM in Sodium Chloride 0.9% 100 ML IV SCH (06:20)
[2022-08-11] MEDS: Gabapentin 300 MG Cap PO SCH (08:26)
[2022-08-11] MEDS: Enoxaparin 80 MG/0.8 ML Syringe SUBCUT SCH (08:27)
[2022-08-11] MEDS: traMADol 50 MG Tab PO PRN (08:27)
[2022-08-11] MEDS: Magnesium Oxide 400 MG Tab PO SCH (08:27)
[2022-08-11] MEDS: Nicotine 7 MG/24 Hr Patch TOP SCH (08:30)
[2022-08-11] MEDS: Nirmatrelvir/Ritonavir 300 MG/100 MG Dose Pack PO SCH (08:31)
[2022-08-11 10:19] LABS: ANION GAP 9.9 mmol/L (5-15)
[2022-08-11 10:47] VITALS: BP 123/88; PULSE 77
== END 2022-08-11 11:12 | disposition home or self-care (01) | DRG 871 ==
LOC: VM.MS 12:07
PROVIDERS: ADMIT Family Medicine; ATTEND Family Medicine
DX: R78.81 Bacteremia (principal); I26.99 Other pulmonary embolism without acute cor pulmonale; U07.1 COVID-19; K21.9 Gastro-esophageal reflux disease without esophagitis; F41.1 Generalized anxiety disorder; G90.A Postural orthostatic tachycardia syndrome [POTS]; G43.109 Migraine with aura, not intractable, without status migrainosus; Z88.1 Allergy status to other antibiotic agents; Z91.09 Other allergy status, other than to drugs and biological substances; Z88.2 Allergy status to sulfonamides; Z79.01 Long term (current) use of anticoagulants; Z79.899 Other long term (current) drug therapy; Z87.442 Personal history of urinary calculi; Z90.89 Acquired absence of other organs; Z90.49 Acquired absence of other specified parts of digestive tract; Z87.891 Personal history of nicotine dependence; Z90.710 Acquired absence of both cervix and uterus
CPT/HCPCS: 80053; 85025; 86140; A9270-GY; J1642; J1650; J2185; J3490

== ENCOUNTER 2023-09-12 13:36 | Emergency (ER) | payer MEDICAID ==
[2023-09-12 13:56] VITALS: BP 118/82; PULSE 88
[2023-09-12] MEDS ORDERED: Sodium Chloride 0.9% 10 ML Syringe FLUSH PRN (14:06)
[2023-09-12] MEDS: Ondansetron 4 MG/2 ML SDV IVPUSH ONE (14:19)
[2023-09-12] MEDS: Sodium Chloride 0.9% 1,000 ML IV ONE (14:19)
[2023-09-12] MEDS: Ketorolac 30 MG/ML SDV IVPUSH ONE (14:22)
[2023-09-12 14:24] LABS: BILIRUBIN,URINE SMALL (NEGATIVE); COLOR,URINE AMBER (YELLOW); GLUCOSE,URINE NEGATIVE (NEGATIVE); KETONES,URINE TRACE mg/dL (NEGATIVE); LEUKOCYTE ESTERASE,URINE NEGATIVE (NEGATIVE); NITRITE,URINE NEGATIVE (NEGATIVE); OCCULT BLOOD,URINE MODERATE (NEGATIVE); PH,URINE 6.5 (5.0-8.0); PROTEIN,URINE 30 mg/dL (NEGATIVE)
[2023-09-12 14:24] LABS: BASOPHILS ABSOLUTE AUTO 0.1 x10^3/uL (0.0-0.2); BASOPHILS PERCENT AUTO 0.6 % (0.2-1.2); EOSINOPHILS ABSOLUTE AUTO 0.1 x10^3/uL (0.0-0.5); EOSINOPHILS PERCENT AUTO 1.1 % (0.0-4.0); HEMOGLOBIN 14.9 g/dL (12.0-16.0); IMMATURE GRAN ABSOLUTE AUTO 0.01 x10^3/uL (0.00-0.07); LYMPHOCYTES PERCENT AUTO 29.3 % (25.0-50.0); MEAN CORPUSCULAR HEMOGLOBIN 30.6 pg (26.0-32.0); MEAN CORPUSCULAR HGB CONC 33.9 g/dL (32.0-36.0); MEAN CORPUSCULAR VOLUME 90.3 fL (78.0-93.0); MONOCYTES ABSOLUTE AUTO 0.6 x10^3/uL (0.0-0.8); MONOCYTES PERCENT AUTO 5.4 % (2.0-11.0); NEUTROPHILS ABSOLUTE AUTO 6.5 x10^3/uL (1.8-7.7); NEUTROPHILS PERCENT AUTO 63.5 % (50.0-80.0); PLATELET COUNT,PLT 397 x10^3/uL (130-400); RED BLOOD CELL COUNT 4.87 x10^6/uL (4.00-5.50); WHITE BLOOD CELL COUNT,WBC 10.3 x10^3/uL (4.0-10.0)
[2023-09-12 14:25] LABS: APPEARANCE,URINE CLOUDY (CLEAR)
[2023-09-12 14:32] LABS: RBC,URINE 40-50 /HPF (NOT SEEN); WBC,URINE 0-5 /HPF (NOT SEEN)
[2023-09-12 14:33] LABS: BACTERIA,URINE RARE /HPF (NOT SEEN); MUCUS,URINE MODERATE /LPF (NOT SEEN); SQUAMOUS EPITHELIAL CELLS,UR FEW /HPF (NOT SEEN)
[2023-09-12 14:50] LABS: A/G RATIO 1.21; ALANINE AMINOTRANSFERASE,ALT 23 U/L (14-59); ALBUMIN 4.7 g/dL (3.4-5.0); ALKALINE PHOSPHATASE 79 U/L (46-116); ASPARTATE AMNIOTRANSFERASE,AST 18 U/L (15-37); BILIRUBIN TOTAL 0.5 mg/dL (0.2-1.0); BLOOD UREA NITROGEN,BUN 7 mg/dL (7-18); CALCIUM 9.6 mg/dL (8.5-10.1); CARBON DIOXIDE,CO2 29 mmol/L (21-32); CHLORIDE,CL 101 mmol/L (98-107); CREATININE 0.9 mg/dL (0.55-1.02); GLUCOSE RANDOM 100 mg/dL (70-99); POTASSIUM,K 3.2 mmol/L (3.5-5.1); PROTEIN TOTAL,TP 8.6 g/dL (6.4-8.2); SODIUM,NA 139 mmol/L (136-145)
[2023-09-12 14:51] LABS: ANION GAP 12.2 mmol/L (5-15); C-REACTIVE PROTEIN < 0.50 mg/dL (<=0.50); ESTIMATED GFR 83 mL/min (>=60)
[2023-09-12 14:53] LABS: LACTIC ACID 1.6 mmol/L (0.4-2.0)
[2023-09-12] MEDS: cefTRIAXone 1 GM Vial IVPUSH ONE (14:59)
== END 2023-09-12 15:27 | disposition home or self-care (01) ==
LOC: VM.ED 13:36
DX: N39.0 Urinary tract infection, site not specified (principal); R31.9 Hematuria, unspecified; N12 Tubulo-interstitial nephritis, not specified as acute or chronic; R11.2 Nausea with vomiting, unspecified; G90.A Postural orthostatic tachycardia syndrome [POTS]; K21.9 Gastro-esophageal reflux disease without esophagitis; Z90.49 Acquired absence of other specified parts of digestive tract; Z90.710 Acquired absence of both cervix and uterus; Z88.2 Allergy status to sulfonamides; Z88.1 Allergy status to other antibiotic agents; Z88.8 Allergy status to other drugs, medicaments and biological substances; Z91.048 Other nonmedicinal substance allergy status; Z79.899 Other long term (current) drug therapy
CPT/HCPCS: 80053; 81001; 83605; 84145; 85025; 86140; 96361; 96374; 96375; 99284-25; J0696; J1885; J2405; J7030

== ENCOUNTER 2024-12-26 15:42 | Emergency (ER) | payer SELFPAY ==
[2024-12-26] MEDS ORDERED: Sodium Chloride 0.9% 10 ML Syringe FLUSH PRN (16:12)
[2024-12-26 16:23] LABS: BASOPHILS ABSOLUTE AUTO 0.1 x10^3/uL (0.0-0.2); BASOPHILS PERCENT AUTO 0.6 % (0.2-1.2); EOSINOPHILS ABSOLUTE AUTO 0.2 x10^3/uL (0.0-0.5); EOSINOPHILS PERCENT AUTO 2.1 % (0.0-4.0); HEMATOCRIT 38.3 % (33.0-47.0); HEMOGLOBIN 13.2 g/dL (12.0-16.0); IMMATURE GRAN ABSOLUTE AUTO 0.01 x10^3/uL (0.00-0.07); LYMPHOCYTES ABSOLUTE AUTO 3.8 x10^3/uL (1.0-4.8); LYMPHOCYTES PERCENT AUTO 37.6 % (25.0-50.0); MEAN CORPUSCULAR HGB CONC 34.5 g/dL (32.0-36.0); MEAN CORPUSCULAR VOLUME 92.7 fL (78.0-93.0); MONOCYTES ABSOLUTE AUTO 0.7 x10^3/uL (0.0-0.8); MONOCYTES PERCENT AUTO 6.4 % (2.0-11.0); NEUTROPHILS ABSOLUTE AUTO 5.4 x10^3/uL (1.8-7.7); NEUTROPHILS PERCENT AUTO 53.2 % (50.0-80.0); PLATELET COUNT,PLT 342 x10^3/uL (130-400); RED BLOOD CELL COUNT 4.13 x10^6/uL (4.00-5.50); WHITE BLOOD CELL COUNT,WBC 10.1 x10^3/uL (4.0-10.0)
[2024-12-26] MEDS: diphenhydrAMINE 50 MG/ML SDV IVPUSH ONE (16:27)
[2024-12-26 16:42] LABS: ALANINE AMINOTRANSFERASE,ALT 21 U/L (14-59); ALBUMIN 3.9 g/dL (3.4-5.0); ALKALINE PHOSPHATASE 62 U/L (46-116); ANION GAP 12.8 mmol/L (5-15); ASPARTATE AMNIOTRANSFERASE,AST 15 U/L (15-37); BILIRUBIN TOTAL 0.2 mg/dL (0.2-1.0); BLOOD UREA NITROGEN,BUN 9 mg/dL (7-18); C-REACTIVE PROTEIN < 0.50 mg/dL (<=0.50); CALCIUM 8.6 mg/dL (8.5-10.1); CARBON DIOXIDE,CO2 29 mmol/L (21-32); CHLORIDE,CL 101 mmol/L (98-107); CREATININE 0.8 mg/dL (0.55-1.02); ESTIMATED GFR 94 mL/min (>=60); GLUCOSE RANDOM 91 mg/dL (70-99); POTASSIUM,K 3.8 mmol/L (3.5-5.1); PROTEIN TOTAL,TP 6.9 g/dL (6.4-8.2); SODIUM,NA 139 mmol/L (136-145)
[2024-12-26 17:19] LABS: APPEARANCE,URINE SLIGHTLY CLOUDY (CLEAR); BILIRUBIN,URINE NEGATIVE (NEGATIVE); COLOR,URINE YELLOW (YELLOW); GLUCOSE,URINE NEGATIVE (NEGATIVE); KETONES,URINE NEGATIVE (NEGATIVE); LEUKOCYTE ESTERASE,URINE NEGATIVE (NEGATIVE); NITRITE,URINE NEGATIVE (NEGATIVE); OCCULT BLOOD,URINE LARGE (NEGATIVE); PROTEIN,URINE NEGATIVE (NEGATIVE); UROBILINOGEN,URINE 0.2 EU/dL (0.2)
[2024-12-26 17:26] LABS: EPITHELIAL CELLS,URINE FEW; RBC,URINE 50-75 /HPF (NOT SEEN); WBC,URINE 0-5 /HPF (NOT SEEN)
[2024-12-26 17:27] LABS: BACTERIA,URINE RARE /HPF (NOT SEEN)
[2024-12-26] MEDS: Lactated Ringers 1,000 ML IV ONE (17:31)
[2024-12-26] MEDS: cefTRIAXone 1 GM Vial IVPUSH ONE (17:41)
[2024-12-26] MEDS: Ketorolac 15 MG/ML SDV IVPUSH ONE (17:41)
[2024-12-26] MEDS: Take Home: Amoxicillin/Clavulanate K 875-125 MG Tab, 2 Tab Pack PO ONE (18:45)
[2024-12-26] MEDS: Take Home: Doxycycline 100 MG Cap, 4 Cap Pack PO ONE (18:45)
[2024-12-26 20:05] VITALS: BP 130/101; PULSE 92
== END 2024-12-26 18:48 | disposition home or self-care (01) ==
LOC: SUPCPDRO 15:42 → VM.ED 15:42
DX: S76.011A Strain of muscle, fascia and tendon of right hip, initial encounter (principal); J18.9 Pneumonia, unspecified organism; K21.9 Gastro-esophageal reflux disease without esophagitis; Z90.49 Acquired absence of other specified parts of digestive tract; Z90.710 Acquired absence of both cervix and uterus; Z88.1 Allergy status to other antibiotic agents; Z88.8 Allergy status to other drugs, medicaments and biological substances; Z91.048 Other nonmedicinal substance allergy status; Z79.01 Long term (current) use of anticoagulants; Z79.899 Other long term (current) drug therapy; W19.XXXA Unspecified fall, initial encounter
CPT/HCPCS: 70450; 71045; 73502; 80053; 81001; 84484; 85025; 86140; 93005; 93010; 96361; 96374; 96375; 99284; 99285; A9270; J0696; J1200; J1885; J7120

== ENCOUNTER 2025-01-28 11:47 | Day surgery (SDC) | payer SELFPAY ==
[2025-01-28] MEDS: Lactated Ringers 1,000 ML IV SCH (12:06)
[2025-01-28] MEDS ORDERED: Lidocaine 4% 5 ML Amp ONE (12:08)
[2025-01-28] MEDS ORDERED: Midazolam 1 MG/ML 2 ML SDV ONE (12:08)
[2025-01-28] MEDS ORDERED: Propofol 200 MG/20 ML SDV ONE ×2 (12:09→13:46)
[2025-01-28] MEDS ORDERED: fentaNYL 100 MCG/2 ML SDV ONE (12:09)
[2025-01-28] MEDS ORDERED: ePHEDrine 50 MG/ML SDV ONE (13:35)
[2025-01-28] MEDS ORDERED: Ondansetron 4 MG/2 ML SDV ONE (14:09)
[2025-01-28 14:41] VITALS: BP 129/85; PULSE 102
[2025-02-25] MEDS ORDERED: Lactated Ringers 1,000 ML IV SCH (07:00)
== END 2025-01-28 15:10 | disposition home or self-care (01) ==
LOC: VM.SDS 11:47
PROVIDERS: ATTEND Family Medicine
DX: K63.5 Polyp of colon (principal); K31.819 Angiodysplasia of stomach and duodenum without bleeding; Z80.0 Family history of malignant neoplasm of digestive organs; K44.9 Diaphragmatic hernia without obstruction or gangrene; G43.909 Migraine, unspecified, not intractable, without status migrainosus; Z88.1 Allergy status to other antibiotic agents; Z88.5 Allergy status to narcotic agent; Z91.048 Other nonmedicinal substance allergy status
CPT/HCPCS: J2250; J2405; J2704; J3010; J3490; J7120